=== PATIENT | female | born 1965 | race Caucasian/White ===

== ENCOUNTER → 2019-05-24 13:23 | Outpatient (CLI) | payer OTHER, SELFPAY ==
[2019-05-17 14:05] VITALS: BMI 27.5
[2019-05-24 10:54] VITALS: BMI 27.4
== END ==
PROVIDERS: PCP Family Medicine; Referring Provider Internal Medicine Critical Care Medicine; Visit Provider Internal Medicine Critical Care Medicine
DX: Z00.00 Encounter for general adult medical examination without abnormal findings (principal)

== ENCOUNTER 2019-06-01 10:08 | Day surgery (SDC) | payer OTHER, SELFPAY ==
[2019-05-17 14:05] VITALS: BMI 27.5
[2019-05-24 10:54] VITALS: BMI 27.4
--- NOTE | 2019-05-30 10:46 | PCM.HP.STD ---
History of Present Illness Date of Admission: 06/01/19 Chief Complaint: Mediastinal lymphadenopathy The patient is a 53-year-old female who initially presented to the pulmonary medicine clinic on May 23 for the evaluation of mediastinal lymphadenopathy. The patient was recently diagnosed with rectosigmoid malignancy and is currently being followed by Dr. Avila of oncology. A recent PET/CT completed on May 20 revealed increased tracer uptake in the mediastinum and bilateral thoracic perihilum with a calculated SUV of 3.3. The patient does have a notable smoking history of approximately 2 packs of cigarettes per day x10 to 15 years, having quit completely in 1998. In addition, she did report significant secondhand smoke exposure, having grown up in a smoking household as a child. Following a discussion with the patient's oncologist, he wished for the patient to undergo transbronchial needle aspiration of the aforementioned lymph node stations via EBUS. Past Medical History Medical History: Medical History (Last Reviewed 05/24/19 @ 12:52 by Anay Moulton) Rectosigmoid cancer (Acute) C19 Lymphadenopathy, generalized (Acute) R59.1 Allergies Sulfa (Sulfonamide Antibiotics) Allergy (Verified 05/28/19 13:09) Rash Home Medications: Ambulatory Orders Medication Instructions Recorded NK 05/24/19 Surgical History: Surgical History (Last Reviewed 05/24/19 @ 12:56 by Anay Moulton) History of delivery (Resolved) Z98.891 Smoking Status: Former smoker Tobacco Use: Non-smoker Review of Systems Constitutional: Denies: Chills, Fever, Weight Change HEENT: Denies: Head Aches, Sinus Congestion, Sinus Drainage Cardiovascular: Denies: Chest Pain, Palpitations Respiratory: Denies: Cough, Shortness of breath at rest, Sputum production Gastrointestinal: Denies: Abdominal Pain, Nausea, Vomiting Genitourinary: Denies: Dysuria Musculoskeletal: Denies: Joint Pain, Joint Tenderness Skin: Denies: Rash, Wounds Neurological: Denies: Numbness, Tingling, Focal weakness Psychiatric: Denies: Anxiety, Depression, Homicidal Ideations, Suicidal Ideations Hematologic/ Lymphatic: Reports: Adenopathy VTE Information - Inpt Only VTE Present on Admission: No VTE Mechan Device Prophylaxis: None VTE Pharm Prophylaxis ordered?: No Reason prophylaxis not ordered:: Treatment Not Indicated - Physical Exam Vitals/I&O's: Body Mass Index (BMI) 27.4 General: Alert, Cooperative, No apparent distress HEENT: Atraumatic, Normocephalic Oral: No Gingival or Mucosal Lesions/ Ulcerations Neck: Supple, No Nodes, Trachea Midline Lungs: Normal air movement, No rhonchi, No wheeze, No rales Cardiovascular: Regular rate, Regular Rhythm, Normal S1, Normal S2, No murmurs Abdomen: Bowel Sounds Present, Soft, Non Tender Extremities: No clubbing, No cyanosis, No edema Skin: No breakdown Musculoskeletal: No Tenderness to Palpation of Joints or Extremities, No Muscle Wasting Lymphatic: No Cervical, Supraclavicular, or Inguinal Adenopathy Neurological: Cranial nerves II-XII grossly intact, Neuro grossly intact Psych/Mental Status: Alert and oriented to time, place, person, mood and affect Assessment/Plan All Active Problems (Last Reviewed 05/24/19 @ 12:56 by Anay Moulton) Rectosigmoid cancer (Acute) Lymphadenopathy, generalized (Acute) History of delivery (Resolved) 1. Mediastinal lymphadenopathy R59.0 Plan The patient presents today having recently been diagnosed with rectosigmoid cancer. She recently completed a PET scan which revealed increased tracer uptake within the subcarinal and bilateral hilar regions. I personally spoke with the patient's oncologist, Dr. Avila, who wished for the patient to undergo transbronchial needle aspiration of the aforementioned lymph node stations via EBUS. Risks and benefits of the proposed procedure were discussed with the patient at length. Questions were answered accordingly. The patient is in agreement to proceed.
[2019-06-01] VITALS (7 sets, daily range): BP systolic 104–138; BP diastolic 66–90; PULSE 79–84; RESP 16–18; TEMP 36.6–36.8; O2SAT 90–99; BMI 27.2
--- NOTE | 2019-06-01 | FLU_PTH ---
PATIENT: MICHELINE JOHNSON LOC: EN U#:[id number] AGE/SX: 53/F ROOM: RE06/01/[address]: Dr. Anibal Moreno DO : 1965 BED: DIS: 06/01/2019 SPEC #: [id number] RECD: 06/01/19 13:24 STATUS: JUAN RE #: [id number] ALEIDA: 06/01/19 00:[address]: Anibal Moreno DEPT: CYTOLOGY RECD BY: Russell Campuzano ENTERED: 06/01/19 13:25 SP TYPE: Fluid OTHR DR: Dr. Kelvin Caldera MD Tissues: A - Lung, NOS B - Lung, NOS C - Lung, NOS D - Lung, NOS E - Lung, NOS F - Lung, NOS G - Lung, NOS H - Lung, NOS I - Lung, NOS J - Lung, NOS K - Lung, NOS Procedures: PAS Fungus (control) Special Stain Group II Special Stain Group I Surgery Specimen Level IV AFB Stain (control) Cytospin Fluid Cytology Other HEADER OPERATION: Endobronchial ultrasound PRE-OP DIAGNOSIS: Mediastinal lymphadenopathy TISSUE SUBMITTED: A-C - EBUS, TBNA, site 7, D & E - EBUS, TBNA, site 10R, F - EBUS, TBNA, site?10L, G - EBUS, TBNA, site 11L, H - EBUS, TBNA, site 7, I - EBUS, TBNA, site 10R, J - EBUS, TBNA, site 10L, K - EBUS, TBNA, site 11L DIAGNOSIS CYTOLOGY A. EBUS, TBNA, aspiration #1, site 7 (smears): Predominantly respiratory epithelial cells, neutrophils and mucus. B. EBUS, TBNA, aspiration #2, site 7 (smears): Adequate for evaluation. Non-necrotizing granulomas are noted. Numerous lymphocytes are noted. Negative for malignant cells. C. EBUS, TBNA, aspiration #3, site 7 (smears): Adequate for evaluation. Non-necrotizing granulomas are noted. Numerous lymphocytes are noted. Negative for malignant cells. D. EBUS, TBNA, aspiration #4, site 10R (smears): Adequate for evaluation. Non-necrotizing granulomas are noted. Numerous lymphocytes are noted. Negative for malignant cells. E. EBUS, TBNA, aspiration #5, site 10R (smears): Adequate for evaluation. Lymphocytes and respiratory epithelial cells noted. Negative for malignant cells. F. EBUS, TBNA, aspiration #6, site 10L (smears): Non-necrotizing granulomas are noted. Lymphocytes and respiratory epithelial cells are noted. Negative for malignant cells. G. EBUS, TBNA, aspiration #7, site 11L (smears): Adequate for evaluation. Non-necrotizing granulomas are noted. Numerous lymphocytes are noted. Negative for malignant cells. H. EBUS, TBNA, site 7, fluid (cell block): Consistent with benign lymph node tissue. Non-necrotizing granulomas. Negative for metastatic carcinoma. Fragments of cartilage. Special stains for acid fast bacilli and fungi are negative for organisms; matched controls are appropriate. I. EBUS, TBNA, site 10R, fluid (cell block): Consistent with benign lymph node tissue. Non-necrotizing granulomas. Negative for metastatic carcinoma. Special stains for acid fast bacilli and fungi are negative for organisms; matched controls are appropriate. J. EBUS, TBNA, site 10L, fluid (cell block): Consistent with benign lymph node tissue. Non-necrotizing granulomas. Negative for metastatic carcinoma. Special stains for acid fast bacilli and fungi are negative for organisms; matched controls are appropriate. K. EBUS, TBNA, site 11L, fluid (cell block): Paucicellular specimen. A few small lymphocytes are noted. Special stains for acid fast bacilli and fungi are negative for organisms; matched controls are appropriate. SJ:bernadette 06/04/19 COMMENT The specimen is evaluated at the time of procedure by Dr. Velasco. Immediate Evaluation: A. EBUS, TBNA, aspiration #1, site 7: Predominantly respiratory epithelial cells, neutrophils and mucus. Reported to Dr. Moreno at 11:50 a.m. B. EBUS, TBNA, aspiration #2, site 7: Adequate for evaluation. Granulomas are noted. Lymphocytes are noted. Negative for malignant cells. Reported to Dr. Moreno at 11:54 a.m. C. EBUS, TBNA, aspiration #3, site 7: Adequate for evaluation. Lymphocytes and respiratory epithelial cells noted. Negative for malignant cells. Reported to Dr. Moreno at 11:57 a.m. D. EBUS, TBNA, aspiration #4, site 10R: Adequate for evaluation. Granulomas are noted. Lymphocytes are noted. Negative for malignant cells. Reported to Dr. Moreno at 12:00 p.m. E. EBUS, TBNA, aspiration #5, site 10R: Adequate for evaluation. Lymphocytes and respiratory epithelial cells noted. Negative for malignant cells. Reported to Dr. Moreno at 12:05 p.m. F. EBUS, TBNA, aspiration #6, site 10L: Negative for malignant cells. Respiratory epithelial cells and lymphocytes are noted. Reported to Dr. Moreno at 12:10 p.m. G. EBUS, TBNA, aspiration #7, site 11L: Adequate for evaluation. Granulomas are noted. Lymphocytes are noted. Negative for malignant cells. Reported to Dr. Moreno at 12:15 p.m. 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 Case has been reviewed in consultation with Dr. Palumbo who concurs with the above diagnosis. IDC:AM CYTOLOGY STUDY Slides are reviewed. CYTOLOGY GROSS A - Received labeled with the patient's name and and designated EBUS, TBNA, aspiration #1, site 7. The specimen consists of two smears. The smears are submitted for immediate cytologic evaluation (wet read). B - Received labeled with the patient's name and and designated EBUS, TBNA, aspiration #2, site 7. The specimen consists of two smears. The smears are submitted for immediate cytologic evaluation (wet read). C - Received labeled with the patient's name and and designated EBUS, TBNA, aspiration #3, site 7. The specimen consists of two smears. The smears are submitted for immediate cytologic evaluation (wet read). D - Received labeled with the patient's name and and designated EBUS, TBNA, aspiration #4, site 10R. The specimen consists of two smears. The smears are submitted for immediate cytologic evaluation (wet read). E - Received labeled with the patient's name and and designated EBUS, TBNA, aspiration #5, site 10R. The specimen consists of two smears. The smears are submitted for immediate cytologic evaluation (wet read). F - Received labeled with the patient's name and and designated EBUS, TBNA, aspiration #6, site 10L. The specimen consists of two smears. The smears are submitted for immediate cytologic evaluation (wet read). G - Received labeled with the patient's name and and designated EBUS, TBNA, aspiration #7, site 11L. The specimen consists of two smears. The smears are submitted for immediate cytologic evaluation (wet read). H - Received in RPMI labeled with the patient's name and and designated EBUS, TBNA, site 7 submitted for cell block. I - Received in RPMI labeled with the patient's name and and designated EBUS, TBNA, site 10R submitted for cell block. J- Received in RPMI labeled with the patient's name and and designated EBUS, TBNA, site 10L submitted for cell block. K - Received in RPMI labeled with the patient's name and and designated EBUS, TBNA, site 11L submitted for cell block. / SJ:rg 06/01/19 TC:3 CPT: 88373 x4, 51692 x4, 03097 x3, 22430 x4, 00553 x8
--- NOTE | 2019-06-01 12:31 | OP.BRONCH_ITS ---
Patient Name: Jodee Jameson Procedure Date: 06/01/2019 11:00 AM Date of : 1965 Age: 53 Procedure: Bronchoscopy Indications: Mediastinal adenopathy Providers: Anibal Moreno MD Referring MD: Rudy Avila MD Medicines: General Anesthesia Complications: No immediate complications Procedure: Pre-Anesthesia Assessment: - A History and Physical has been performed. Patient meds and allergies have been reviewed. The risks and benefits of the procedure and the sedation options and risks were discussed with the patient. All questions were answered and informed consent was obtained. Patient identification and proposed procedure were verified prior to the procedure by the physician and the nurse. Mental Status Examination: alert and oriented. Airway Examination: normal oropharyngeal airway. Respiratory Examination: clear to auscultation. CV Examination: RRR, no murmurs, no S3 or S4. ASA Grade Assessment: II - A patient with mild systemic disease. After reviewing the risks and benefits, the patient was deemed in satisfactory condition to undergo the procedure. The anesthesia plan was to use general anesthesia. Immediately prior to administration of medications, the patient was re-assessed for adequacy to receive sedatives. The heart rate, respiratory rate, oxygen saturations, blood pressure, adequacy of pulmonary ventilation, and response to care were monitored throughout the procedure. The physical status of the patient was re-assessed after the procedure. After I obtained informed consent, the scope was passed under direct vision. Throughout the procedure, the patient's blood pressure, pulse, and oxygen saturations were monitored continuously. The ultrasound bronchoscope was introduced through the mouth, via laryngeal mask airway and advanced to the tracheobronchial tree. The procedure was accomplished without difficulty. The patient tolerated the procedure well. Findings: The laryngeal mask airway is in good position. The vocal cords appear normal. The subglottic space is normal. The trachea is of normal caliber. The rosita is sharp. The tracheobronchial tree was examined to at least the first subsegmental level. Bronchial mucosa and anatomy are normal; there are no endobronchial lesions, and no secretions. The scope was withdrawn and replaced with the EBUS bronchoscope to accomplish the ultrasound examination. Lymph Nodes: An endobronchial ultrasound endoscope was utilized to systematically examine the subcarinal mediastinum (level 7), right hilar region (level 10R), left hilar region (level 10L) and left interlobar region (level 11L) in order to assist with fine needle aspiration. Lymph node sizing was performed via endobronchial ultrasound. Sampling by transbronchial needle aspiration was also performed using an Olympus EBUS-TBNA 19 gauge needle in the subcarinal mediastinum (level 7), right hilar region (level 10R), left hilar region (level 10L) and left interlobar region (level 11L) and sent for routine cytology. - The 7 (subcarinal) node was evaluated. Three samples with the needle were obtained. - The 10R (hilar) node was evaluated. Two samples with the needle were obtained. - The 10L (hilar) node was evaluated. One sample with the needle was obtained. - The 11L (Interlobar) node was evaluated. One sample with the needle was obtained. Impression: - Mediastinal adenopathy - The airway examination was normal. - Endobronchial ultrasound was performed. - Lymph node sizing and sampling was performed. Recommendation: - Await cytology results. Procedure Code(s): --- Professional --- 02061, Bronchoscopy, rigid or flexible, including fluoroscopic guidance, when performed; with endobronchial ultrasound (EBUS) guided transtracheal and/or transbronchial sampling (eg, aspiration[s]/biopsy[ies]), 3 or more mediastinal and/or hilar lymph node stations or structures Diagnosis Code(s): --- Professional --- R59.0, Localized enlarged lymph nodes R09.89, Other specified symptoms and signs involving the circulatory and respiratory systems CPT copyright 2017 [employer]. All rights reserved. The codes documented in this report are preliminary and upon hcc coders review may be revised to meet current compliance requirements. DO Anibal Alvarado MD 06/01/2019 12:30:49 PM This report has been signed electronically. Number of Addenda: 0 Note Initiated On: 06/01/2019 11:00 AM
== END 2019-06-01 14:07 | disposition home or self-care (01) ==
LOC: EN 10:09 → AC 10:11
PROVIDERS: PCP Family Medicine; Referring Provider Internal Medicine Critical Care Medicine; Visit Provider Internal Medicine Critical Care Medicine
PROC: BB4BZZZ Ultrasonography of Pleura (ICD-10-PCS; CPT 31653; principal; 2019-06-01 11:00)
DX: R59.0 Localized enlarged lymph nodes (principal); R09.89 Other specified symptoms and signs involving the circulatory and respiratory systems; C19 Malignant neoplasm of rectosigmoid junction; Z78.0 Asymptomatic menopausal state; Z87.891 Personal history of nicotine dependence
CPT/HCPCS: 31653; 88108; 88161; 88305; 88312; 88313; J7120; J2405

== ENCOUNTER → 2019-06-02 07:54 | Outpatient (CLI) | payer OTHER, SELFPAY ==
[2019-05-17 14:05] VITALS: BMI 27.5
[2019-05-24 10:54] VITALS: BMI 27.4
[2019-06-01 10:57] VITALS: BMI 27.2
--- NOTE | 2019-06-02 07:54 | MRI_ITS ---
STUDY: MR PELVIS WITH T WITHOUT CONTRAST REASON FOR EXAM: Female, 53 years old. rectal ca, lymph nodes with lesions TECHNIQUE: Standardized fat and water weighted pulse sequences were obtained in all 3 orthogonal planes, pre-and post contrast administration. IV 15CC DOTAREM was administered for the contrast portion of the examination. COMPARISON: PET scan 05/21/2019 FINDINGS: Normal urinary bladder. Normal visualized small intestine. Rectal wall mass identified with the lower margin 5.2 cm above the anal verge (mid rectal). The cephalad margin of the mass is seen at S2 level, approximately 1.2 cm above the peritoneal reflection. The mass extends from approximately the 10:00 position along the anterior left wall to the 7:00 position. The tumor is seen extending beyond the muscularis propria into the pericolorectal tissues (3:00 position) measuring approximately 6.6 mm (image 9 series 9) with reticulation extending leftward and slightly anterior (image 43 series 14). There are 3 round oval-shaped lymph nodes in the perirectal fat on image 12 of series 9 with short axis measuring 4.6 mm, 4.2 mm and 4.5 mm. There is also a round lymph node measuring 3.9 mm on image 10 of series 9. An asymmetrically enlarged right pelvic sidewall lymph node measures 1.0 x 2.1 cm on image 6 of series 7 (FDG positive on prior PET scan) with a smaller asymmetric lymph node slightly more anterior on the same image measuring 0.4 x 0.8 cm (right external iliac chain). Just anterior to the sacrum on image 3 of series 16, there is a round lymph node measuring 7.7 x 7.9 cm (superior rectal chain). The anal sphincter complex is NOT involved. There is no pelvic fluid. There is no pelvic mass lesion or lymphadenopathy. The uterus is normal in signal intensity and enhancement without evidence of mass. Normal visualized pelvic arteries. No bone marrow edema. Normal abdominal wall. MRI/Pelvis W/WO Contrast IMPRESSION: 1. Mid rectal neoplasm correlating to FDG-positive lesion with extension beyond the muscularis propria mesorectal on recent PET scan (T3b). Approximately 7 suspicious regional lymph nodes (in the perirectal fat, right external iliac chain, superior rectal chain). Anal sphincter complex is NOT involved. 2. MR staging: T3c, N2, Mx Electronically Signed: Jesus Izquierdo MD ([place]) at 7:59 EDT , Service support ,
== END ==
PROVIDERS: PCP Family Medicine; Referring Provider Internal Medicine Medical Oncology; Visit Provider Internal Medicine Medical Oncology
DX: C19 Malignant neoplasm of rectosigmoid junction (principal)
CPT/HCPCS: 72197; A9575

== ENCOUNTER 2019-06-11 05:43 | Day surgery (SDC) | payer OTHER, SELFPAY ==
[2019-05-17 14:05] VITALS: BMI 27.5
[2019-06-08 08:09] VITALS: BMI 27.2
--- NOTE | 2019-06-08 08:50 | HP_ITS ---
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: No Is patient in pain?: No Allergies Sulfa (Sulfonamide Antibiotics) Allergy (Intermediate, Verified 06/08/19 08:09) Rash Medications Lidocaine/Prilocaine [Lidocaine-Prilocaine Cream] 1 applicatio TP DAILY PRN PRN 30 Days #1 tube 06/07/19 [Rx Confirmed 06/08/19] Ondansetron [Ondansetron Odt] 8 mg PO Q8H PRN PRN 10 Days #30 tab.rapdis 06/07/19 [Rx Confirmed 06/08/19] Prochlorperazine Maleate 10 mg PO Q6H PRN PRN 10 Days #30 tab 06/07/19 [Rx Confirmed 06/08/19] Is last menstrual period known: No Post menopausal: Yes Patient : No PFSH Medical History Rectosigmoid cancer (Acute ~05/2019) Lymphadenopathy, generalized (Acute) Hemorrhoids (Acute) Surgical History History of delivery (Resolved) Family History Mother COPD (chronic obstructive pulmonary disease) Father Skin cancer Emphysema lung Lung cancer Sister Heart disease Sepsis Other History of shingles Social History (Updated 06/08/19 @ 08:[address] Karson Drew MD) Smoking Status: Former smoker Tobacco: How many years used: 10 how long ago did patient quit smokin HPI HPI HPI: MICHELINE JOHNSON, is a 53 F who presents to the office today for HPI HPI Surgical H&P: Yes HPI: 53-year-old woman was found to have high CEA level-66. She had colonoscopy done on 04/16/[address] Olsen at [facility] in [facility], showed large polyp about 12 cm from the anal verge. 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 She had a CT scan done on 04/30/2019, chest showed 6 mm left lower lobe nodule, abdomen showed splenomegaly with asymmetrical rectal wall thickening. She was referred for further evaluation. PET/CT scan 05/21/2019 showed hypermetabolic activity in the rectosigmoid junction, right roxana-pelvic soft tissue lymph node, bilateral axillary mediastinum bilateral perihilar. Patient underwent bronchoscopy and EBUS on 06/01/2019 for mediastinal adenopathy. Lymph node sampling was obtained from level 7, 10 R, 10 L, and 11 L. Pathology was consistent with granuloma and no evidence of malignancy. Patient underwent MRI pelvis on 06/02/2019 which demonstrated a rectal mass identified with the lower margin being about 5.2 cm above the anal verge and the most cephalad portion being at approximately the S2 level. The mass extends from approximately the 10 o'clock position along the anterior left wall to the 7 o'clock position. The tumor is seen extending beyond the muscularis propria into the pleura low rectal tissues at the 3 o'clock position measuring approximately 6.6 mm. There are noted to be approximately 7 suspicious regional lymph nodes noted in the perirectal fat, right external iliac chain, and superior rectal chain. The largest lymph node appears to involve the right external iliac near the pelvic sidewall and measures 2.1 cm. ROS General General: Yes colon cancer; no weight change, appetite, fatigue, breast cancer or weakness HEENT HEENT: No difficulty swallowing, eye injury, eye surgery, swollen glands or hoarseness Endo Endocrine: No thyroid disease, diabetes mellitus, thyroid cancer, Hair loss, heat intolerance or cold intolerance Cardio Cardiovascular: No murmur, pacemaker, heart disease, atrial fibrillation, high blood pressure, heart attack, heart stent, palpitations, shortness of breat with exertion or chest pain Psych Psychiatric: No depression, anxiety or hearing voices Resp Respiratory: No shortness of breath, No sleep apnea, No cough, No COPD, No asthma, No emphysema, No wheezing Gastro Gastrointestinal: No abdominal pain, No nausea or vomiting, No diarrhea, No constipation, Yes blood in stool, No acid reflux, Yes hemorrhoids, No ulcers, No gallbladder problem, No black,tarry stools Erich Hematologic: No blood thinners, No blood disorders, No bleeding, No anemia, No blood clots Neuro Neurologic: No weakness Exam Const General: no acute distress, well developed, well hydrated Orientation: oriented to person, oriented to place, oriented to time [facility] Head: normocephalic, atraumatic Ears: external ears normal Mouth: moist mucous membranes Eyes Sclera: sclerae normal Pupils: normal by confrontation Neck Neck: no lymphadenopathy noted Neck mass: No Thyroid: thyroid normal, symmetrical Chest Chest palpation & inspection: normal inspection of the chest Resp Effort & Inspection: normal respiratory effort Auscultation: clear to auscultation bilaterally Percussion: percussion normal Cardio Rate: regular rate Rhythm: regular rhythm Heart Sounds: no murmurs GI Palpation: soft, no hepatosplenomegaly, no masses, nontender Rectal Exam: other Other: Rectal exam deferred. Extrem General: normal to inspection, no clubbing, cyanosis or edema Assessment & Plan Problems 1. Vascular catheter fitting or adjustment Z45.2 Plan I plan to perform a Right internal jugular port a cath placement. The planned surgical procedure was discussed extensively with the patient. The risks, benefits, anticipated outcomes and possible complication were mentioned. My staff has also explained the procedure in understandable terms and the patient was given the option to take printed material concerning the planned procedure. The patient had the opportunity to ask questions concerning the planned procedure. The patient freely consents to the planned procedure. Coding Level of Care Code Off vis,new,level 3 Diagnoses Vascular catheter fitting or adjustment Z45.2 06/08/19 0850 <Electronically signed by Karson barker MD> Date _ Karson Drew MD I have re-examined the patient. There are no clinical changes since date of exam.
[2019-06-11] VITALS (9 sets, daily range): BP systolic 97–132; BP diastolic 58–77; PULSE 82–95; RESP 15–16; TEMP 36.6–36.8; O2SAT 92–96; BMI 27.2
[2019-06-11] MEDS: Lactated Ringers 1,000 ML 100 ML IV (06:19)
[2019-06-11] MEDS: Cefazolin 2 GM in 0.9% Normal Saline 100 ML IV (07:29)
[2019-06-11] MEDS: Bupivacaine Mpf 0.5% 30 ML VIAL (08:04)
--- NOTE | 2019-06-11 08:15 | OP.PCM_ITS ---
Problem List (1) Vascular catheter fitting or adjustment Status: Acute Report of Operation Date of Procedure: 06/11/19 Pre-Operative Diagnosis: Vascular fitting or adjustment Post-Operative Diagnosis: Same Surgery/Procedure Performed:: Placement of a right IJ PowerPort Type of Anesthesia:: Local MAC Anesthesiologist: Hugo March Estimated Blood Loss (mL): < 5 cc Description of Procedure: Patient was brought into the operating room. Placed in the supine position. Ultrasound of the right neck showed where the internal jugular vein was located the neck and chest were then marked appropriately. The neck and chest were then sterilely prepped and draped in usual fashion. Local was injected into the neck . Seldinger's technique was used to gain access to the vein guidewire was placed through the needle the needle was removed. Fluoroscopy was used to confirm placement of the wire. I injected local on the chest and incision was made. Electrocautery was used to create a pocket for the port. A skin eli was made in the neck dilator and sheath was then placed over the guidewire. The dilator and guidewire were then removed. Single lumen catheter was placed into the sheath and the sheath was removed. Fluoroscopy was used to confirm proper length. I tunneled from the pocket created over the collarbone into the neck and brought the catheter down I cut to length placed the locking hub on the catheter the port under the catheter and secured the 2 with a locking hub. It flushed and irrigated well. I sutured the port into the pocket with 2 sutures of 2-0 Prolene. Skin incisions were closed with deep dermal stitches of 3-0 Vicryl. Dermabond was applied. The port was accessed. It was flushed with 5 cc of Hepflush. Sterile dressings were applied and the patient tolerated the procedure well. - Admit VTE Documentation VTE Present on Admission: No VTE Mechan Device Prophylaxis: SCD's VTE Pharm Prophylaxis ordered?: No Reason prophylaxis not ordered:: Treatment Not Indicated
--- NOTE | 2019-06-11 08:19 | DCINST_ITS ---
Discharge Diet: No Restrictions - Pain medication may cause nausea. You should typically eat light foods as you take your pain medication. Discharge Activity: May Shower - with the bandage in place 1-2 days after surgery. DO NOT SHOWER WHEN YOUR PORT IS ACCESSED. Additional Activity Instructions:: May not drive, work with heavy equipment, or sign legal documents for [address] if you are no longer taking narcotic pain medications. You may drive when you are no longer taking pain medications. Additional Dressing/Incision Instructions:: Leave the bandage on for 2-3 days. When you remove the bandage, leave the steri-strips intact until they fall off. Allergies/Adverse Reactions: Allergies Sulfa (Sulfonamide Antibiotics) Allergy (Intermediate, Verified 06/11/19 06:12) Rash Medications to take at Discharge Lidocaine/Prilocaine [Lidocaine-Prilocaine Cream] 1 applicatio TP DAILY PRN PRN 30 Days #1 tube 06/07/19 Ondansetron [Ondansetron Odt] 8 mg PO Q8H PRN PRN 10 Days #30 tab.rapdis 06/07/19 Prochlorperazine Maleate 10 mg PO Q6H PRN PRN 10 Days #30 tab 06/07/19 Oxycodone HCl/Acetaminophen [Percocet 5/325] 1 - 2 tablet PO Q4H PRN PRN 6 Days #30 tablet 06/11/19 The following prescriptions were given: Oxycodone HCl/Acetaminophen [Percocet 5/325] 1 - 2 tablet PO Q4H PRN PRN 6 Days #30 tablet PRN Reason: Pain Transmission Status: Received by [facility]/pharmacy #[id number] Primary Care Physician: Kelvin Caldera MD [Primary Care Provider] - Test Results: Test results from this visit will be discussed in further detail at your follow- up appointment, if applicable. Please Follow Up With: Rudy Avila MD - [phone] When: Please plan to follow up in 7 days in the office.
--- NOTE | 2019-06-11 08:32 | RAD_ITS ---
STUDY: X-RAY CHEST REASON FOR EXAM: Female, 53 years old. POST PORT PLACEMENT TECHNIQUE: Single AP portable view of the chest. COMPARISON: None. FINDINGS: A right-sided portacatheter is seen with the tip at the junction of the superior vena cava and right atrium. Patchy infiltrates at the lung bases more prominent on the right side. There is no demonstrated pleural abnormality. Normal size heart. Normal mediastinum and miquel. Normal visualized pulmonary arteries. Normal visualized aortic arch and descending thoracic aorta. Normal visualized thoracic spine. Normal visualized ribs, clavicles, and shoulders. There is no demonstrated abnormality of the visualized soft tissue structures of the upper abdomen. RAD/Chest 1 View (Portable) IMPRESSION: The tip of the right portacatheter is at the junction of the superior vena cava and right atrium. Bilateral patchy atelectasis and/or infiltrates worse on the right lung base. Electronically Signed: William Jordan, at 9:11 EDT , Service support ,
== END 2019-06-11 09:40 | disposition home or self-care (01) ==
LOC: SDC 05:44 → AC 05:48
PROVIDERS: PCP Family Medicine; Referring Provider Surgery; Visit Provider Surgery
PROC: (CPT 36561; principal; 2019-06-11 07:15)
DX: Z45.2 Encounter for adjustment and management of vascular access device (principal); C19 Malignant neoplasm of rectosigmoid junction; Z78.0 Asymptomatic menopausal state; Z87.891 Personal history of nicotine dependence
CPT/HCPCS: 36561; 71045; 77001; J7120; C1788

== ENCOUNTER → 2019-08-09 09:33 | Outpatient (CLI) | payer OTHER, SELFPAY ==
[2019-05-17 14:05] VITALS: BMI 27.5
[2019-07-31 08:55] VITALS: BMI 27.7
--- NOTE | 2019-08-09 09:38 | MRI_ITS ---
STUDY: MR PELVIS WITH T WITHOUT CONTRAST REASON FOR EXAM: Female, 53 years old. restaging rectal ca TECHNIQUE: Standardized fat and water weighted pulse sequences were obtained in all 3 orthogonal planes, pre-and post contrast administration. IV 15cc dotarem was administered for the contrast portion of the examination. COMPARISON: MRI 06/02/2019, PET scan 05/21/2019 FINDINGS: Normal urinary bladder. Normal visualized small intestine. Rectal wall mass (increased signal heterogeneity) identified with the lower margin 5.8 cm above the anal verge (mid rectal). The cephalad margin of the mass is seen at S2 level. The mass extends from approximately the 10:00 position along the anterior left wall to the 6:00 position (image 20 series 5). The tumor is seen extending beyond the muscularis propria into the pericolorectal tissues (3:00 position) measuring approximately 4 mm depth (previously measured 6.6 mm) (image 9 series 10). There are 3 round to oval (homogenous, smooth borders) lymph nodes in the perirectal fat on images 11-14 of series 10 with short axis measuring 2.6 mm right posterolateral (previous measurement 4.6 mm), 2 mm left anterolateral (previously measured 4.2 mm) and 3.0 mm left posterolateral (previously measured 4.5 mm). An asymmetrically enlarged right pelvic sidewall lymph node measures 0.7 x 2.0 cm (previously measured 1.0 x 2.1 cm) on image 6 of series 10 (FDG positive on prior PET scan) with a smaller asymmetric lymph node slightly more anterior on the image 5 measuring 0.4 x 0.8 cm (stable). Just anterior to the sacrum on image 22 of series 13, there is a round lymph node measuring 6.0 x 6.0 mm (previously measured 7.7 x 7.9 mm. The rectal mass has overall decreased in size with maximum wall thickness measuring up to 7.7 mm (previously 11.4 mm similar level) with length of mass currently measuring 3.0 cm (previously measured 5.4 cm). There is no pelvic fluid. There is no pelvic mass lesion or lymphadenopathy. The uterus is normal in signal intensity and enhancement without evidence of mass. Normal visualized pelvic arteries. No bone marrow edema although scattered marrow replacement/conversion is overall similar. Normal abdominal wall. MRI/Pelvis W/WO Contrast IMPRESSION: 1. Mid rectal neoplasm overall DECREASED size (thickness and length) with persistent minimal (4 mm) extension beyond the muscularis propria into mesorectal fat (T3a). Slightly smaller above described lymph nodes. Only two (right pelvic sidewall, superior rectal chain) lymph nodes measure above 5 mm on the current exam. 2. MR restaging: T3a, N1, Mx. Grade 3 rectal tumor regression/response. Electronically Signed: Jesus Izquierdo MD ([place]) at 14:45 EDT , Service support ,
== END ==
PROVIDERS: PCP Family Medicine; Referring Provider Internal Medicine Medical Oncology; Visit Provider Internal Medicine Medical Oncology
DX: C19 Malignant neoplasm of rectosigmoid junction (principal)
CPT/HCPCS: 72197; A9575

== ENCOUNTER 2019-08-19 18:29 | Emergency (ER) | payer OTHER, SELFPAY ==
[2019-05-17 14:05] VITALS: BMI 27.5
[2019-08-14 08:30] VITALS: BMI 27.2
[2019-08-19 18:30] VITALS: BP 144/84; PULSE 104; RESP 16; TEMP 37.4; O2SAT 97; BMI 27.4
--- NOTE | 2019-08-19 18:44 | ED.VIS.GEN ---
History of Present Illness Chief Complaint: Fever Informant: Patient Onset: Days Narrative: Patient is currently undergoing chemotherapy for stage III rectal cancer. She states that she had her chemo pump on last week, August 13 through August 15. She states she was gets a low-grade fever when she gets her treatments. She typically just takes Tylenol. She mentioned this to her oncologist this past week who advised her not to take Tylenol and mask any symptoms that she may be having. She has had fever the past several days. T-max today was 101. Patient called her oncology team who sent her in for evaluation. Patient denies any other symptoms at present time. 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 Denies: Chills Eyes: Denies: Visual changes - bilaterally ENT: Denies: Bilateral ear pain Cardiovascular: Denies: Chest pain Respiratory: Denies: Dyspnea, Cough Gastrointestinal: Denies: Abdominal pain, Nausea, Vomiting, Diarrhea Genitourinary: Denies: Dysuria Musculoskeletal: Denies: Swelling, Extremity Pain Skin: Denies: Rash Hematologic: Denies: Easy bruising, Easy bleeding Allergy: Denies: Uticaria Physical Exam Vital Signs/Narrative: Vital Signs Temp Pulse Resp BP Pulse Ox 08/19/19 18:30 99.4 F H 104 H 16 144/84 H 97 Inital Vital Signs reviewed: Yes General: Well nourished, Well developed Head: Normocephalic ENT: Moist mucous membranes Neck: Supple Cardiovascular: Regular rate, Regular rhythm Respiratory: No distress, CTA bilaterally, - - Port in place right upper chest with no overlying skin changes. Abdomen: Soft, Nontender Back: Nontender Extremities: Nontender Skin: Normal color Neurological: Alert, Oriented x3, Normal Strength, Normal Sensation Psychological: Normal affect Diagnostic/Tx/Re-eval Impressions Chest X-Ray 05/31/20 19:05 IMPRESSION: No change bibasilar interstitial infiltrates, scarring or subsegmental atelectasis Electronically Signed: Wilfredo Mackey MD at 20:10 EDT , Service support , 08/19/19 19:05 Chest 1 View (Portable) [RAD] Stat Laboratory Results 08/19/19 08/19/19 08/19/19 19:14 19:14 19:30 WBC 2.5 L RBC 3.58 L Hgb 10.1 L Hct 31.8 L MCV 88.8 MCH 28.2 MCHC 31.8 L RDW Std Deviation 61.7 H RDW Coeff of [place] 19.4 H Plt Count 172 MPV 11.0 Immature Gran % (Auto) 1.200 H Neut % (Auto) 77.3 H Lymph % (Auto) 8.5 L [place] % (Auto) 6.5 Eos % (Auto) 5.7 H Baso % (Auto) 0.8 Absolute Neuts (auto) 1.9 L Absolute Lymphs (auto) 0.21 L Nucleated RBC % 0.8 Differential Comment SCANNED Diff Path Review May foll Sodium 133 L Potassium 3.9 Chloride 99 Carbon Dioxide 27.0 Anion Gap 7 BUN 17 Creatinine 0.56 Estim Creat Clear Calc 107.51 Est GFR (MDRD) Af Amer 145 Est GFR (MDRD) Non-Af 120 BUN/Creatinine Ratio 30.5 H Glucose 89 Calcium 8.8 Total Bilirubin 0.60 Direct Bilirubin 0.20 AST 30 ALT 39 Alkaline Phosphatase 81 Total Protein 7.0 Albumin 3.3 Globulin 3.7 Urine Color Yellow Urine Clarity Clear Urine pH 8.0 Ur Specific [place] 1.010 Urine Protein Negative Urine Glucose (UA) Normal Urine Ketones Negative Urine Occult Blood Negative Urine Nitrite Negative Urine Bilirubin Negative Urine Urobilinogen 4 H Ur Leukocyte Esterase Negative Urine RBC 0 SEEN Urine WBC 0 SEEN Ur Squamous Epith Cells 0 SEEN Urine Bacteria 0 SEEN Urine Mucus 0 SEEN - Medical Decision Making Patient continues to have no symptoms while in the emergency room. Temperature is rechecked and was 100.4. I did speak with Cami Francis, nurse practitioner for oncology. We will go ahead and send the patient home at this time. She will see the patient in follow-up tomorrow morning. Blood cultures are currently pending. Covid test is pending and if positive I will call the patient tonight with those results. ED Disposition - Plan for ED Patient: Disposition: Home or Assisted Living Diagnosis: Fever Instructions: ED FUO Adult Referrals: Shanna Barker NP-C [Nurse Practitioner] - 1 Day
--- NOTE | 2019-08-19 19:05 | RAD_ITS ---
STUDY: X-RAY CHEST REASON FOR EXAM: Female, 53 years old. FEVER, RECENT CHEMO- TUESDAY, RECTAL CA TECHNIQUE: Single frontal view of the chest. COMPARISON: June 11, 2019 FINDINGS: Right IJ catheter appears angulated or kinked near the skin but unchanged in position terminating in the right atrium. Bibasilar interstitial infiltrates unchanged. There is no demonstrated pleural abnormality. Normal size heart. Normal mediastinum and miquel. Normal visualized pulmonary arteries. Normal visualized aortic arch and descending thoracic aorta. Normal visualized thoracic spine. Normal visualized ribs, clavicles, and shoulders. There is no demonstrated abnormality of the visualized soft tissue structures of the upper abdomen. RAD/Chest 1 View (Portable) IMPRESSION: No change bibasilar interstitial infiltrates, scarring or subsegmental atelectasis Electronically Signed: Wilfredo Mackey MD at 20:10 EDT , Service support ,
[2019-08-19 19:27] LABS: Absolute Lymphocyte Count 0.21 X10^3/uL (0.83-4.51); Absolute Neutrophil Count 1.9 X10^3/uL (2.0-7.7); Basophil# 0.02 X10^3/uL; Basophil% 0.8 % (0-1); Eosinophil# 0.14 X10^3/uL; Eosinophils% 5.7 % (0-5); Hematocrit 31.8 % (37-47); Hemoglobin 10.1 g/dL (12.0-15.0); Lymphocyte # 0.21 X10^3/ul (4.0); Lymphocyte % 8.5 % (19-41); Mean Corp Hgb Conc 31.8 g/dL (32-36); Mean Corpuscular Hgb 28.2 pg (27.0-32.0); Mean Corpuscular Volume 88.8 fL (81-99); Monocyte# 0.16 X10^3/uL; Monocyte% 6.5 % (0-10); NRBC Flagged by Analyzer 0.8 % (0-5); Neutrophil % 77.3 % (47-70); POSITIVE DIFFERENTIAL YES; Platelet Count 172 K/mm3 (150-450); RBC Distribution Width CV 19.4 % (11.6-14.6); RBC Distribution Width SD 61.7 fl (35.1-43.9); Red Blood Count 3.58 M/mm3 (4.2-5.4); White Blood Count 2.5 K/mm3 (4.4-11.0)
[2019-08-19 19:33] LABS: Differential Indicated SCAN CRITERIA MET
[2019-08-19 19:38] LABS: AST(SGOT) 30 U/L (15-37); Alanine Aminotransfer ALT/SGPT 39 U/L (13-56); Albumin, Serum 3.3 g/dL (3.2-5.0); Alkaline Phosphatase 81 U/L (45-117); Anion Gap 7 (5-15); BUN 17 mg/dL (7-18); BUN/Creat Ratio 30.5 RATIO (10-20); Calcium,Total 8.8 mg/dL (8.5-10.1); Chloride 99 mmol/L (98-107); Creatinine, Serum 0.56 mg/dL (0.55-1.02); EST Glomerular Filtration Rate 120 mL/min (>60); Est Glom Filt Rate - Afr Amer 145 mL/min (>60); Estimated Creatinine Clearance 107.51 ml/min; Globulin 3.7 g/dL (2.2-4.2); Glucose 89 mg/dL (74-106); Potassium 3.9 mmol/L (3.5-5.1); Sodium Level 133 mmol/L (136-145)
[2019-08-19 19:43] LABS: Bacteria 0 SEEN /hpf (None Seen); Mucous, Urine 0 SEEN /hpf (<or=2+); Red Blood Cells-Urine 0 SEEN /hpf (0-5); Squamous Epithelial Cells - UA 0 SEEN /hpf (5-10); White Blood Cells 0 SEEN /hpf (0-5)
[2019-08-19 19:46] LABS: Color, Urine Yellow (Yellow); Glucose, Dipstick Normal (Normal); Ketone-Dipstick Negative (Negative); Leukocyte Esterase-Dipstick Negative /ul (Negative); Nitrite-Dipstick Negative (Negative); Occult Blood-Urine Negative /ul (Negative); Protein-Dipstick Negative (Negative); Urine Bilirubin Dipstick Negative (Negative); Urine Clarity Clear (Clear); Urine Urobilinogen 4 mg/dl (Normal)
[2019-08-19 20:02] LABS: Differential Comment SCANNED
[2019-08-19 21:36] VITALS: BP 126/72; PULSE 106; RESP 16
[2019-08-20 12:00] LABS: Pathologist Review Reviewed
== END 2019-08-19 21:42 | disposition home or self-care (01) ==
PROVIDERS: Emergency Provider Emergency Medicine; PCP Family Medicine
DX: R50.9 Fever, unspecified (principal); D86.1 Sarcoidosis of lymph nodes; C19 Malignant neoplasm of rectosigmoid junction; Z79.899 Other long term (current) drug therapy; Z87.891 Personal history of nicotine dependence
CPT/HCPCS: 36415; 36591; 71045; 80048; 80076; 81001; 85025; 87040; 87635; 99284; G2023; A4216; U0004

== ENCOUNTER → 2019-10-09 13:41 | Outpatient (CLI) | payer OTHER, SELFPAY ==
[2019-05-17 14:05] VITALS: BMI 27.5
[2019-10-02 08:17] VITALS: BMI 28.0
--- NOTE | 2019-10-09 13:42 | CT_ITS ---
STUDY: CT ABDOMEN AND PELVIS WITH CONTRAST REASON FOR EXAM: Female, 54 years old. RECTAL [id number] TREATMENTS, SARCOIDOSIS RADIATION DOSAGE (If Supplied By Facility): CTDIvol = ( 15.57 ) mGy, DLP = ( 1073.65 ) mGycm TECHNIQUE: Transaxial images were obtained from the dome of the diaphragm to the symphysis pubis without oral contrast. IV 100mL Isovue-300 was administered. Sagittal and coronal images were reconstructed. Individualized dose optimization techniques were used for this CT. COMPARISON: MRI from 08/09/2019 FINDINGS: The visualized lung bases are unremarkable. The visualized portions of the heart are within normal limits. There is mild fatty infiltration of the liver. No discrete lesion. There is gallbladder wall thickening and enhancement with a small amount of pericholecystic fluid. However, no intra or extrahepatic biliary dilatation is noted. Normal spleen. Normal pancreas. Normal bilateral adrenal glands. Normal right kidney. Normal left kidney. Normal visualized stomach. Normal small intestine. Normal colon. No suspicious perirectal mass or induration. No suspicious pelvic adenopathy noted. The appendix is visualized and appears normal. Appendix best seen on coronal recon images 56-65 Normal abdominal aorta. Normal inferior vena cava. Normal retroperitoneum. Normal urinary bladder. Normal visualized uterus. Normal abdominal wall. Normal osseous structures. CT/Abdomen/Pelvis WITH Contrast IMPRESSION: No suspicious rectal mass is identified. No perirectal inflammation or pelvic adenopathy noted. Gallbladder wall thickening with a minimal amount of pericholecystic fluid. No gallstones or biliary dilatation noted. Findings are equivocal for acute gallbladder disease, consider further evaluation with HIDA scan No free intraperitoneal fluid, air, or suspicious adenopathy Normal appendix visualized Electronically Signed: Lisandro Parks MD at 14:31 EDT , Service support ,
== END ==
PROVIDERS: PCP Family Medicine; Referring Provider Nurse Practitioner Family; Visit Provider Nurse Practitioner Family
DX: C19 Malignant neoplasm of rectosigmoid junction (principal)
CPT/HCPCS: 74177; Q9967

== ENCOUNTER 2019-12-11 10:25 | Observation (INO) | payer OTHER, SELFPAY ==
[2019-05-17 14:05] VITALS: BMI 27.5
[2019-12-10 14:00] VITALS: BMI 27.5
[2019-12-11] VITALS (10 sets, daily range): BP systolic 123–137; BP diastolic 66–87; PULSE 81–104; RESP 16–18; TEMP 36.4–36.9; O2SAT 93–98; BMI 27.4; BMI 27.8
--- NOTE | 2019-12-11 10:54 | EKG12_ITS ---
Test Reason : SOB Blood Pressure : / mmHG Vent. Rate : 092 BPM Atrial Rate : 092 BPM P-R Int : 156 ms QRS Dur : 070 ms QT Int : 354 ms P-R-T Axes : 055 006 044 degrees QTc Int : 437 ms Normal sinus rhythm Normal ECG Confirmed by WINTER NAVA, NOEMI ([id number]), purchase request editor LANCE LAY ([id number]) on 12/14/2019 12:59:32 PM Referred By: ELISSA Confirmed By:NOEMI MAX MD
--- NOTE | 2019-12-11 10:55 | CT_ITS ---
STUDY: CTA CHEST REASON FOR EXAM: Female, 54 years old. DYSPNEA, FEVER, COUGH, SOB. H/O RECTAL CA. History of sarcoidosis. RADIATION DOSAGE (If Supplied By Facility): CTDIvol = ( 12.79 ) mGy, DLP = ( 449.61 ) mGycm TECHNIQUE: The examination was performed with the intravenous administration of IV 100mL Isovue-370. Post-processing of the angiographic images was performed, with multiplanar reformation and 3D reconstruction. Individualized dose optimization techniques were used for this CT. COMPARISON: None. FINDINGS: A right-sided portacatheter is seen with the tip in the superior vena cava. Normal enhancement of the main pulmonary artery and right and left pulmonary arteries. Normal enhancement of the bilateral peripheral pulmonary arteries. There is no demonstrated pulmonary embolism. Normal thoracic aorta and visualized great vessels. There is no demonstrated aortic dissection. Normal heart and pericardium. Normal mediastinum. Normal hilar regions. Normal visualized trachea and bronchi. The lungs are well expanded. Emphysematous changes more prominent in the upper lobes. Patchy infiltrates in the right middle lobe as well as in both lower lobes and lingular segment of the left upper lobe. Diffuse groundglass appearance. The patient does have a history of a sarcoidosis and this may represent changes secondary to the sarcoidosis. Normal pleura. Normal chest wall structures. There are degenerative changes of thoracic spine. Gallstones. Splenomegaly. CT/CTA Chest W/WO Contrast IMPRESSION: No evidence of pulmonary embolism. Patchy infiltrates in both lungs as described with evidence of groundglass appearance throughout both lungs. The patient does have a history of sarcoidosis. Gallstones. Splenomegaly. Electronically Signed: William Jordan, at 13:07 EDT , Service support ,
--- NOTE | 2019-12-11 10:56 | NURSING ---
NO OLD EKGS
--- NOTE | 2019-12-11 10:57 | ED.VISSUMM ---
- ER Visit Summary Date of Service: 12/11/19 Chief Complaint: Fever shortness of breath History of Present Illness: The patient is a 54 F who presents with fever and shortness of breath that began yesterday. Patient states her temperature at home was up to 103.7. Patient states it improved with Tylenol. Patient states her breathing is worse with walking across the room. Patient checked her pulse ox at home after walking across the room and it was in the 60s. Patient denies any chest pain. Patient states she did feel like her heart was racing when she was short of breath. Patient admits to a cough but denies any sputum production. Physical Examination: Vital signs are stable. Patient is afebrile. Patient is in no acute distress. Oral mucosa is pink and moist. Neck is supple. Trachea is midline. There is no JVD. Heart was regular rate and rhythm. Lungs are clear and equal bilaterally. Abdomen is soft. Bowel sounds are normal. There is no tenderness. Cranial nerves II through XII are intact. There are no focal motor or sensory deficits noted. Extremities are intact. There is no calf tenderness or edema. Test Results: CBC showed white blood cell count of 4.1. Hemoglobin was 8.0. This was improved from previous result of 7.1. Comprehensive metabolic profile was essentially within normal limits. Troponin was normal. CTA of the chest was obtained. There is no evidence of pulmonary embolism. There is bilateral patchy infiltrates noted. These were interpreted by the radiologist and reviewed by myself. Lactate was normal. Urinalysis showed leukocyte esterase of 500 with 5-10 white blood cells. Emergency Department Course and Treatment: Patient was given IV fluids. Patient was given a dose of Zosyn here in the emergency department. Patient was feeling better on reevaluation. Case was discussed with the hospitalist. Patient will be admitted. Patient understood and was agreeable with the plan. All questions were answered. Disposition: Admit to hospital Impression: 1. Fever 2. Pneumonia This note was generated with [employer]ation software. It may contain incorrect words, spelling, and punctuation that were not noted in review of the chart prior to signing ED Disposition - Plan for ED Patient: Referrals: Kelvin Caldera MD [Primary Care Provider] -
[2019-12-11] MEDS: 0.9% Normal Saline 1,000 ML 1000 ML IV (11:41)
[2019-12-11 11:55] LABS: Absolute Lymphocyte Count 0.22 X10^3/uL (0.83-4.51); Absolute Neutrophil Count 3.3 X10^3/uL (2.0-7.7); Basophil# 0.01 X10^3/uL; Basophil% 0.2 % (0-1); Eosinophil# 0.07 X10^3/uL; Eosinophils% 1.7 % (0-5); Hematocrit 25.2 % (37-47); Lymphocyte # 0.22 X10^3/ul (4.0); Lymphocyte % 5.4 % (19-41); Mean Corp Hgb Conc 31.7 g/dL (32-36); Mean Corpuscular Hgb 31.5 pg (27.0-32.0); Mean Corpuscular Volume 99.2 fL (81-99); Mean Platelet Vol. 10.7 fl (6.2-12.0); Monocyte# 0.37 X10^3/uL; NRBC Flagged by Analyzer 0 % (0-5); Neutrophil # 3.34 X10^3/uL (2.7-7.7); Neutrophil % 81.7 % (47-70); POSITIVE DIFFERENTIAL YES; POSITIVE MORPHOLOGY YES; Platelet Count 138 K/mm3 (150-450); RBC Distribution Width CV 24.9 % (11.6-14.6); RBC Distribution Width SD 85.7 fl (35.1-43.9); Red Blood Count 2.54 M/mm3 (4.2-5.4); White Blood Count 4.1 K/mm3 (4.4-11.0)
[2019-12-11 12:00] LABS: Prothrombin Time (Protime)PT. 12.8 SECONDS (11.7-14.9)
[2019-12-11 12:01] LABS: Differential Indicated SCAN CRITERIA MET; Partial Thromboplast Time 32.4 Seconds (24.1-36.2)
[2019-12-11 12:11] LABS: ALB/GLOB Ratio 0.7 RATIO (0.9-2.4); AST(SGOT) 36 U/L (15-37); Alanine Aminotransfer ALT/SGPT 35 U/L (13-56); Albumin, Serum 3.2 g/dL (3.2-5.0); Alkaline Phosphatase 100 U/L (45-117); Anion Gap 4 (5-15); BUN 10 mg/dL (7-18); BUN/Creat Ratio 21.5 RATIO (10-20); Calcium,Total 8.6 mg/dL (8.5-10.1); Chloride 109 mmol/L (98-107); Creatinine, Serum 0.46 mg/dL (0.55-1.02); EST Glomerular Filtration Rate 148 mL/min (>60); Est Glom Filt Rate - Afr Amer 179 mL/min (>60); Estimated Creatinine Clearance 129.36 ml/min; Globulin 4.3 g/dL (2.2-4.2); Glucose 87 mg/dL (74-106); Potassium 4.1 mmol/L (3.5-5.1); Protein, Total 7.5 g/dL (6.4-8.2); Sodium Level 140 mmol/L (136-145)
[2019-12-11 12:20] LABS: Anisocytosis 2+; Differential Comment SCANNED; Macrocytosis 1+; Ovalocyte 1+; Polychromasia 1+
[2019-12-11 12:21] LABS: Lactic Acid 0.6 mmol/L (0.4-1.9)
--- NOTE | 2019-12-11 13:06 | HP.PCM_ITS ---
Problem List (1) Vascular catheter fitting or adjustment Status: Chronic (2) Chemotherapy management, encounter for Status: Acute (3) Iron (Fe) deficiency anemia Status: Acute Qualifiers: Iron deficiency anemia type: chronic blood loss Qualified Code(s): D50.0 - Iron deficiency anemia secondary to blood loss (chronic) (4) Seasonal allergies Status: Acute (5) Sarcoidosis of lymph nodes Status: Chronic (6) Neutropenia due to and not concurrent with chemotherapy Status: Acute (7) Fever Status: Acute Qualifiers: Fever type: unspecified Qualified Code(s): R50.9 - Fever, unspecified (8) Thrombocytopenia due to drugs Status: Acute (9) Diarrhea due to drug Status: Resolved (10) Anemia Status: Acute Qualifiers: Anemia type: unspecified type Qualified Code(s): D64.9 - Anemia, un specified (11) Iron deficiency anemia Status: Chronic Qualifiers: Iron deficiency anemia type: chronic blood loss Qualified Code(s): D50.0 - Iron deficiency anemia secondary to blood loss (chronic) (12) Anemia due to chemotherapy Status: Chronic (13) Iron deficiency Status: Chronic (14) Encounter for education Status: Acute (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 Patient presented with fever and shortness of breath. Patient fever started 3 days prior to her admission. She checked her temperature at home and recorded 103.7. She took some Tylenol with some improvement. On the day of admission fever recurred and this time with shortness of breath with minimal activity. Patient has a portable pulse oximeter at home and recorded her oxygen saturation to be in the mid 80s at rest dropping to 60s with ambulation elected to present to the emergency department as a result. CT of the chest obtained demonstrated patchy bilateral infiltrate. COVID-19 assay was taking prior to patient being admitted Past Medical History Past Medical History (Chronic Problems): Chronic Problems (Last Reviewed 12/11/19 @ 14:[address] Jose Recinos MD) Vascular catheter fitting or adjustment (Chronic) Sarcoidosis of lymph nodes (Chronic) Iron deficiency anemia (Chronic) Anemia due to chemotherapy (Chronic) Iron deficiency (Chronic) Rectosigmoid cancer (Chronic ~05/2019) Medical History: Medical History (Last Reviewed 12/11/19 @ 14:[address] Jose Recinos MD) Rectosigmoid cancer (Chronic) Onset Date: ~05/2019 C19 Lymphadenopathy, generalized (Acute) R59.1 Hemorrhoids K64.9 Allergies Sulfa (Sulfonamide Antibiotics) Allergy (Intermediate, Verified 12/11/19 10:26) Rash Home Medications: Ambulatory Orders Medication Instructions Recorded Lidocaine/Prilocaine 1 applicatio TP DAILY PRN PRN 30 06/07/19 [Lidocaine-Prilocaine Cream] Days #1 tube Ondansetron [Ondansetron Odt] 8 mg PO Q8H PRN PRN 10 Days #30 06/07/19 tab.rapdis Cetirizine HCl [Zyrtec] 10 mg PO DAILY 08/19/19 Multivit-Min/Iron/Folic/Lutein 1 tab PO DAILY 12/11/19 [Centrum Silver Women Tablet] Surgical History: Surgical History (Last Reviewed 12/11/19 @ 14:[address] Jose Recinos MD) History of delivery (Resolved) Z98.891 Smoking Status: Former smoker - *Family History Maternal Family History: Family History (Last Reviewed 12/11/19 @ 14:[address] Jose Recinos MD) Mother COPD (chronic obstructive pulmonary disease) Father Skin cancer Emphysema lung Lung cancer Sister Heart disease Sepsis Other History of shingles Review of Systems Constitutional: Reports: Anorexia, Chills, Malaise, Weakness HEENT: Denies: Head Aches, Sinus Congestion, Sinus Drainage Respiratory: Reports: Shortness of Breath Gastrointestinal: Denies: Abdominal Pain, Hematemesis, Hematochezia, Nausea, Melena, Vomiting Genitourinary: Denies: Dysuria, Frequency, Hematuria, Urgency Musculoskeletal: Denies: Joint Pain, Joint Tenderness Skin: Denies: Rash Neurological: Denies: Focal weakness, Numbness, Tingling Psychiatric: Denies: Homicidal Ideations, Suicidal Ideations Hematologic/ Lymphatic: Denies: Easy Bruising, Easy Bleeding VTE Information - Inpt Only VTE Present on Admission: No VTE Mechan Device Prophylaxis: None VTE Pharm Prophylaxis ordered?: Yes Patient Problems: Active and Suspected Problems (Last Reviewed 12/11/19 @ 14:[address] Jose Recinos MD) Fever (Acute) Thrombocytopenia due to drugs (Acute) Anemia (Acute) Objective: GENERAL: cooperative HEENT: Atraumatic; EYES; Anicteric, Normal Conjunctiva NECK; supple, normal thyroid, RESPIRATORY: Diminished to auscultation CARDIOVASCULAR: Regular S1 S2, GI: soft, normoactive bowel sounds, : No Renal angle tenderness; EXTREMITIES: No edema, no clubbing, MUSCULOSKELETAL: no muscle waisting NEURO: Awake; no lateralizing signs. SKIN: No Rash PSYCH; Flat affect - Physical Exam Vitals/I&O's: Vital Signs Temp Pulse Resp BP Pulse Ox 97.5 F L 101 H 18 130/78 H 98 12/11/19 10:26 12/11/19 10:26 12/11/19 12:12 12/11/19 10:12/11/19 10:26 Oxygen Delivery Method Room Air Weight: 77.111 kg Body Mass Index (BMI) 27.4 Laboratory Results 12/11/19 11:00: WBC 4.1 L, RBC 2.54 L, Hgb 8.0 L, Hct 25.2 L, MCV 99.2 H, MCH 31.5, MCHC 31.7 L, RDW Std Deviation 85.7 H, RDW Coeff of Gatito 24.9 H, Plt Count 138 L, MPV 10.7, Immature Gran % (Auto) 2.000 H, Neut % (Auto) 81.7 H, Lymph % (Auto) 5.4 L, [place] % (Auto) 9.0, Eos % (Auto) 1.7, Baso % (Auto) 0.2, Absolute Neuts (auto) 3.3, Absolute Lymphs (auto) 0.22 L, Nucleated RBC % 0, Differential Comment SCANNED, Diff Path Review May foll, Polychromasia 1+, Anisocytosis 2+, Macrocytosis 1+, Ovalocytes 1+ 12/11/19 11:00: PT 12.8, INR 1.0, APTT 32.4 12/11/19 11:00: Sodium 140, Potassium 4.1, Chloride 109 H, Carbon Dioxide 27.0, Anion Gap 4 L, BUN 10, Creatinine 0.46 L, Estim Creat Clear Calc 129.36, Est GFR (MDRD) Af Amer 179, Est GFR (MDRD) Non-Af 148, BUN/Creatinine Ratio 21.5 H, Glucose 87, Calcium 8.6, Total Bilirubin 0.90, AST 36, ALT 35, Alkaline Phosphatase 100, Troponin I < 0.015, Total Protein 7.5, Albumin 3.2, Globulin 4.3 H, Albumin/Globulin Ratio 0.7 L 12/11/19 11:30: Lactic Acid 0.6 12/11/19 12:55: COVID-19 (YARIEL) Pending Assessment/Plan All Active Problems (Last Reviewed 12/11/19 @ 14:[address] Jose Recinos MD) Chemotherapy management, encounter for (Acute) Iron (Fe) deficiency anemia (Acute) Seasonal allergies (Acute) Diarrhea (Resolved) Neutropenia due to and not concurrent with chemotherapy (Acute) Fever (Acute) Thrombocytopenia due to drugs (Acute) Diarrhea due to drug (Resolved) Anemia (Acute) Encounter for education (Acute) Lymphadenopathy, generalized (Acute) History of delivery (Resolved) Patient is a 54-year-old lady with history of anorexia cancer status post chemoradiation presented with fever 1. Fever ?With high suspicion for viral pneumonia rule out COVID-19. Admitted to regular nursing floor placed under contact and droplet precautions whilst COVID-19 assay has been ruled out. Patient was empirically started on Levaquin and Rocephin in addition to supplemental oxygen with plans to consult pulmonary and ID if her assay comes back positive 2. Acute hypoxic respiratory failure ?Secondary to suspected underlying viral pneumonia. As stated above CT of the chest demonstrated bilateral patchy infiltrates with evidence of groundglass appearance throughout both lungs. Patient management is as described above 3. Acute cystitis ?Urinalysis obtained demonstrated mild pyuria and positive leukoesterase. Patient is on Rocephin. Urine culture sent will follow up on result 4. Anemia Secondary to anemia of malignancy as well as effective chemo monitoring H&H with plans to transfuse if patient becomes symptomatic 5. Mild thrombocytopenia ?Monitoring daily platelet count. Plans to discontinue Lovenox if platelet count starts dropping 6. DVT prophylaxis ?Lovenox Advance planning; did discuss with the patient and family (patient ) regarding advanced directives as well as CODE STATUS. Did explain the various scenarios involved ( FULL CODE, DNR CCA, DNR CCA with no intubation, and DNR CC and what each meant) patient elected full code with CPR and intubation if warranted. Order was placed. Time spent on discussion 18 minutes. Clinical Impression(s) from Imaging Studies Chest CTA 12/11/19 10:55 IMPRESSION: No evidence of pulmonary embolism. Patchy infiltrates in both lungs as described with evidence of groundglass appearance throughout both lungs. The patient does have a history of sarcoidosis. Gallstones. Splenomegaly. Electronically Signed: William Jordan, at 13:07 EDT , Service support , Inpatient E&M: 60532 Init Hosp L3 Procedures: 89742 Advncd Care Plan 30 Min
[2019-12-11 13:14] LABS: Mucous, Urine 0 SEEN /hpf (<or=2+); Red Blood Cells-Urine 0 SEEN /hpf (0-5)
[2019-12-11 13:15] LABS: Color, Urine Yellow (Yellow); Glucose, Dipstick Normal (Normal); Ketone-Dipstick Negative (Negative); Leukocyte Esterase-Dipstick 500 /ul (Negative); Nitrite-Dipstick Negative (Negative); Occult Blood-Urine Negative /ul (Negative); Protein-Dipstick Negative (Negative); Specific Gravity, Urine 1.005 (1.002-1.030); Urine Bilirubin Dipstick Negative (Negative); Urine Clarity Clear (Clear); Urine Urobilinogen Normal (Normal)
[2019-12-11 13:21] LABS: Squamous Epithelial Cells - UA 0-5 SEEN /hpf (5-10); White Blood Cells 5-10 SEEN /hpf (0-5)
[2019-12-11 13:22] LABS: Bacteria 1+ /hpf (None Seen)
--- NOTE | 2019-12-11 13:28 | NURSING ---
MED SURG COVID UNIT KITTOE FEVER, PNEUMONIA
--- NOTE | 2019-12-11 16:14 | ED.RN ---
INITIAL COVID TEST RESULTED INCONCLUSIVE. PT INFORMED OF FURTHER WAIT FOR ADMISSION PENDING RETEST. PT VERBALIZED UNDERSTANDING. DINNER TRAY OFFERED AND ORDERED FOR PT. PT DENIES FURTHER NEEDS AT THIS TIME.
[2019-12-11 19:00] LABS: Fibrinogen 646 mg/dl (203-444)
[2019-12-11 19:20] LABS: D-Dimer Quantitative (DVT/PE) 1.07 FEU/ug/m (0.27-0.49)
[2019-12-11] MEDS: 0.9% Normal Saline 1,000 ML 100 ML IV (19:40)
[2019-12-11 19:52] LABS: Prothrombin Time (Protime)PT. 12.7 SECONDS (11.7-14.9)
[2019-12-11 19:53] LABS: Fibrinogen 637 mg/dl (203-444)
[2019-12-11] MEDS: levoFLOXacin IV 750 MG/150 ML BAG 100 MG IV (20:15)
[2019-12-11 20:43] LABS: BNP,B-Type NATRIURETIC PEPTIDE 17.1 pg/mL (0-100)
[2019-12-11 20:48] LABS: Lactic Acid 0.6 mmol/L (0.4-1.9)
[2019-12-11 20:49] LABS: AST(SGOT) 32 U/L (15-37); Alanine Aminotransfer ALT/SGPT 34 U/L (13-56); Albumin, Serum 3.1 g/dL (3.2-5.0); Alkaline Phosphatase 94 U/L (45-117); CPK Total, Creatine Kinase 18 U/L (26-192); Globulin 4.2 g/dL (2.2-4.2); Protein, Total 7.3 g/dL (6.4-8.2)
[2019-12-11 20:51] LABS: Procalcitonin 0.21 ng/mL (0.00-0.09)
[2019-12-11] MEDS: Albuterol 2.5 MG/3 ML VIAL.NEB. INHALATION (22:16)
--- NOTE | 2019-12-11 22:22 | CPS ---
attempted sputum induction, pt had dry cough. albuterol given
[2019-12-11 23:42] LABS: M R Staph aureus DNA By PCR Negative (Negative); Probe Check PASS; Specimen Processing Control PASS
[2019-12-12 02:07] VITALS: BP 114/60; PULSE 97; RESP 18; TEMP 37.1; O2SAT 98
[2019-12-12] MEDS: 0.9% Normal Saline 1,000 ML 100 ML IV (05:19)
[2019-12-12 05:43] LABS: Hemoglobin 7.2 g/dL (12.0-15.0); Mean Corp Hgb Conc 31.3 g/dL (32-36); Mean Corpuscular Hgb 31.3 pg (27.0-32.0); Mean Platelet Vol. 10.6 fl (6.2-12.0); POSITIVE COUNT YES; POSITIVE DIFFERENTIAL YES; POSITIVE MORPHOLOGY YES; Platelet Count 115 K/mm3 (150-450); RBC Distribution Width CV 24.7 % (11.6-14.6); RBC Distribution Width SD 87.5 fl (35.1-43.9)
[2019-12-12 05:48] LABS: Differential Indicated MANUAL DIFF
[2019-12-12 06:03] LABS: Anion Gap 2 (5-15); BUN 8 mg/dL (7-18); BUN/Creat Ratio 16.1 RATIO (10-20); Calcium,Total 8.5 mg/dL (8.5-10.1); Chloride 111 mmol/L (98-107); EST Glomerular Filtration Rate 137 mL/min (>60); Est Glom Filt Rate - Afr Amer 165 mL/min (>60); Estimated Creatinine Clearance 119.01 ml/min; Glucose 85 mg/dL (74-106); Magnesium 2.2 mg/dL (1.6-2.6); Potassium 4.1 mmol/L (3.5-5.1); Sodium Level 141 mmol/L (136-145)
[2019-12-12 06:24] LABS: Absolute Lymphocyte Count 0.16 X10^3/uL (0.83-4.51); Absolute Neutrophil Count 1.7 X10^3/uL (2.0-7.7); Lymphocyte 8 % (19-41); Lymphocyte # 0.16 X10^3/ul (4.0); Metamyelocyte 2 % (0-1); Monocyte 7 % (0-10); Neutrophil-Band 3 % (0-5); Neutrophil-Segmented 82 % (47-70); Total Cells Counted 100 (MANUAL DIFF)
[2019-12-12 06:25] LABS: Hypochromasia 1+; Platelet Estimate SLT DEC (ADEQ); Red Cell Morphology N CYTIC NORMAL (NORM C&C)
[2019-12-12 08:10] VITALS: BP 145/66; PULSE 88; RESP 16; TEMP 36.6; O2SAT 98
[2019-12-12 08:23] VITALS: O2SAT 96
[2019-12-12] MEDS: Sodium Ferric Gluconat 250 MG in 0.9% Normal Saline 250 ML 135 MG IV (10:38)
[2019-12-12 10:40] VITALS: BP 145/66; PULSE 88; RESP 16; TEMP 36.4; O2SAT 97
[2019-12-12 10:57] VITALS: O2SAT 96
--- NOTE | 2019-12-12 11:00 | CASEMGMT ---
RN JEREMIAH Face to Face with patient for initial transition planning/care coordination assessment. RN CM introduced self and role at [facility]. Patient lying in bed, alert and oriented. Patient willing to participate in assessment and is able to answer all questions appropriately. Care providers, pharmacy, and demographics verified. Patient wishes to discharge home, denies need for home health at this time. Patient states she has no further needs or concerns at this time. CM to follow for discharge planning needs that may arise. PCP: Verenice Specialists: [place], oncologist Preferred Pharmacy: [facility] Insurance: MMO Prescription Benefit: yes Living Will/HPOA: none LNOK: Living Arrangements: Patient lives with in a 2 story home with bed and bath on the main level. Patient has 3-4 steps to enter the home with railing. Patient states she is independent at home Transportation: self/ DME/HHC: Patient denies DME or previous HHC. Disposition Plan: Patient to discharge home with family support and follow-up plans in place. Franchesca GIBSON, RN, CM
--- NOTE | 2019-12-12 11:05 | PCM.DC ---
- Discharge Diagnoses Current Active Problems: Current Active and Chronic Problems (Last Reviewed 12/11/19 @ 14:[address] Jose Recinos MD) Fever (Acute) Thrombocytopenia due to drugs (Acute) Anemia (Acute) Iron deficiency anemia (Chronic) Anemia due to chemotherapy (Chronic) Iron deficiency (Chronic) You will use the following diet at home:: No restrictions Your food should be the consistency of: Regular Your liquids should be the consistency of: Regular/Thin Discharge Activity: Return to Normal Activity Weight Bearing Status: Full weight bearing Allergies/Adverse Reactions: Allergies Sulfa (Sulfonamide Antibiotics) Allergy (Intermediate, Verified 12/11/19 10:26) Rash Medications to take at Discharge Lidocaine/Prilocaine [Lidocaine-Prilocaine Cream] 1 applicatio TP DAILY PRN PRN 30 Days #1 tube 06/07/19 Ondansetron [Ondansetron Odt] 8 mg PO Q8H PRN PRN 10 Days #30 tab.rapdis 06/07/19 Cetirizine HCl [Zyrtec] 10 mg PO DAILY 08/19/19 Multivit-Min/Iron/Folic/Lutein [Centrum Silver Women Tablet] 1 tab PO DAILY 12/11/19 levoFLOXacin tablet [Levaquin tablet] 500 mg PO DAILY #6 tab 12/12/19 The following prescriptions were given: levoFLOXacin tablet [Levaquin tablet] 500 mg PO DAILY #6 tab Transmission Status: Pending to [facility] Primary Care Physician: Kelvin Caldera MD [Primary Care Provider] - Please follow up with your Primary Care Physician in: in 1-2 weeks Test Results: Test results from this visit will be discussed in further detail at your follow-up appointment, if applicable.
[2019-12-12 12:12] LABS: Pathologist Review Reviewed
[2019-12-12 12:17] LABS: Pathologist Review Reviewed
--- NOTE | 2019-12-14 08:29 | DS.PCM_ITS ---
Discharge Date and Diagnosis Date of Admission: 12/11/19 Date of Discharge: 12/12/19 - Primary Discharge Diagnosis Acute Problems: #1 atypical pneumonia-etiology unclear #2 sarcoidosis #3 iron deficiency anemia-etiology unknown - Secondary Discharge Diagnosis Chronic Problems: Chronic Problems (Last Reviewed 12/11/19 @ 14:[address] Jose Recinos MD) Vascular catheter fitting or adjustment (Chronic) Sarcoidosis of lymph nodes (Chronic) Iron deficiency anemia (Chronic) Anemia due to chemotherapy (Chronic) Iron deficiency (Chronic) Rectosigmoid cancer (Chronic ~05/2019) Hospital Course and Treatment Operations: None Procedures: None Summary of Care Provided: The patient is a 54 year old F was seen in the emergency room at [facility] with a chief complaint of fever at home and a low pulse ox reading at home. Patient had a pulse oximeter that was her mother's and she checked her pulse ox due to some shortness of breath and she stated her pulse oximetry read in the 60s. Evaluation in the emergency room showed her pulse ox to be above 90% on room air, patient was afebrile, patient's white blood cell count was 4.1, hemoglobin was 0.8, comprehensive metabolic profile was within normal limits. CT of the chest was obtained, there is no evidence of pulmonary embolism but there were patchy infiltrates noted, lactic acid was normal, patient's COVID-19 test was negative. Patient was given IV antibiotics in the emergency room, she was placed into observation status on MedSurg 3, patient stated that she felt improved during her hospital stay and her Rocephin was discontinued and she was maintained on Levaquin. Patient was given an infusion of Venofer for for her iron deficiency anemia, the patient was never hypoxic in the hospital and the etiology of her pneumonia was unknown. On 12/12/2019, patient was seen and examined: On examination she appeared in good health and spirits, she does not appear to be in any distress. Vital signs as documented. Skin warm and dry and without overt rashes. Neck without JVD, thyroid appears normal, trachea is midline, neck is supple. Lungs clear, normal air movement was noted. Heart exam notable for regular rhythm, normal sounds and absence of murmurs, rubs or gallops. Abdomen unremarkable and without evidence of organomegaly, masses, or abdominal aortic enlargement, bowel sounds are present in all 4 quadrants, no abdominal tenderness was noted. Extremities nonedematous, no cyanosis was noted, no clubbing was noted. Neuro: Cranial nerves II through XII are grossly intact, no focal motor deficits were noted, sensation to light touch and pinprick is intact, motor exam 5/5 throughout. Psych: Patient is alert and oriented x3, she does not appear anxious or depressed, she does not appear agitated. I felt the patient was stable for discharge on 12/12/2019, she was discharged on an outpatient course of Levaquin to complete 7 days of treatment. - Physical Exam Vitals/I&O's: Vital Signs Temp Pulse Resp BP Pulse Ox 97.6 F L 88 16 145/66 H 96 12/12/19 10:40 12/12/19 10:40 12/12/19 10:40 12/12/19 10:40 12/12/19 10:57 Oxygen Delivery Method Room Air Weight: 78.199 kg Body Mass Index (BMI) 27.8 Intake and Output for Last 24 Hours 12/12/19 12/13/19 12/14/19 23:59 23:59 23:59 Intake Total 2260.00 / 2260.00 Output Total 2600 / 2600 Balance -340.00 / -340.00 Microbiology Past 72 Hours 12/11/19 11:35 Blood Culture (Wb) - Anticubital Left Blood Culture - Preliminary No growth in 48 hours. 12/11/19 11:30 Blood Culture (Wb) - Port Blood Culture - Preliminary No growth in 48 hours. 12/11/19 22:00 Mucosa - Nose Respiratory Panel (PCR) - Final 12/11/19 13:00 Urine, Random Legionella Antigen - Final 12/11/19 13:00 Urine, Clean Catch Streptococcus pneumoniae Antigen (M - Jil l Discharge Activity: Return to Normal Activity Weight Bearing Status: Full weight bearing Home Medications: Medications to take at Discharge Lidocaine/Prilocaine [Lidocaine-Prilocaine Cream] 1 applicatio TP DAILY PRN PRN 30 Days #1 tube 06/07/19 Ondansetron [Ondansetron Odt] 8 mg PO Q8H PRN PRN 10 Days #30 tab.rapdis 06/07/19 Cetirizine HCl [Zyrtec] 10 mg PO DAILY 08/19/19 Multivit-Min/Iron/Folic/Lutein [Centrum Silver Women Tablet] 1 tab PO DAILY 12/11/19 levoFLOXacin tablet [Levaquin tablet] 500 mg PO DAILY #6 tab 12/12/19 Following Prescriptions Were Given to Patient: levoFLOXacin tablet [Levaquin tablet] 500 mg PO DAILY #6 tab Transmission Status: Received by [facility] Primary Care Physician: Kelvin Caldera MD [Primary Care Provider] - Please follow up with your Primary Care Physician in: in 1-2 weeks Please Follow Up With: Kelvin Caldera MD When: 1 to 2 wk Disposition: Home Minutes spent on discharge:: 30 Patient Condition:: Stable Medical Necessity - Tobacco Use Smoking Status: Former smoker Tobacco Use: Cigarettes Meaningful Use Info Meaningful Use Diagnoses (Choose all that apply): None applicable OBSV E&M: 13216 Observation care discharge
== END 2019-12-12 13:30 | disposition home or self-care (01) ==
LOC: ED 11:24 → MS3 12-12 06:08
PROVIDERS: Admitting Provider Internal Medicine; Emergency Provider Emergency Medicine; PCP Family Medicine; Visit Provider Internal Medicine
DX: J18.9 Pneumonia, unspecified organism (principal); Z23 Encounter for immunization; N30.00 Acute cystitis without hematuria; J96.01 Acute respiratory failure with hypoxia; D50.0 Iron deficiency anemia secondary to blood loss (chronic); D86.1 Sarcoidosis of lymph nodes; D69.59 Other secondary thrombocytopenia; D64.81 Anemia due to antineoplastic chemotherapy; C19 Malignant neoplasm of rectosigmoid junction; Z92.3 Personal history of irradiation; Z79.899 Other long term (current) drug therapy; Z87.891 Personal history of nicotine dependence; R06.02 Shortness of breath
CPT/HCPCS: 36415; 36591; 71275; 80048; 80053; 80076; 81001; 82550; 83605; 83735; 83880; 84145; 84484; 85025; 85379; 85384; 85610; 85730; 86140; 87040; 87449; 87633; 87635; 87641; 93005; 94640; 96361; 96365; 96366; 96367; 99218; 99251; 99285; J7030; J7050; Q9967; 90686; A4216; G0378; G0463; J0696; J2916; U0003

== ENCOUNTER → 2019-12-24 16:40 | Outpatient (CLI) | payer OTHER, SELFPAY ==
[2019-05-17 14:05] VITALS: BMI 27.5
[2019-12-24 14:19] VITALS: BMI 27.2
--- NOTE | 2019-12-24 16:50 | RAD_ITS ---
STUDY: X-RAY CHEST REASON FOR EXAM: Female, 54 years old. Cough and fever. History of sarcoidosis. TECHNIQUE: Single AP portable view of the chest. COMPARISON: Chest, 08/19/2019. CTA of the chest, 12/11/2019. FINDINGS: Right jugular Port-A-Cath without change. Lungs well-expanded. There is mild perihilar interstitial prominence most marked in the lower lobes. This appears unchanged from previous examination. There is no demonstrated pleural abnormality. Normal size heart. Normal mediastinum and miquel. Normal visualized pulmonary arteries. Normal visualized aortic arch and descending thoracic aorta. No visualized osseous changes. There is no demonstrated abnormality of the visualized soft tissue structures of the upper abdomen. RAD/Chest PA and Lateral IMPRESSION: Stable bibasilar densities unchanged from previous examination. Electronically Signed: Geovani Finch DO at 17:00 EDT Tel [phone], Service support ,
== END ==
PROVIDERS: PCP Family Medicine; Referring Provider Nurse Practitioner Family; Visit Provider Nurse Practitioner Family
DX: R05 Cough (principal); R06.02 Shortness of breath; R50.9 Fever, unspecified
CPT/HCPCS: 71046

== ENCOUNTER → 2019-12-25 09:55 | Outpatient (CLI) | payer OTHER, SELFPAY ==
[2019-05-17 14:05] VITALS: BMI 27.5
[2019-12-24 14:19] VITALS: BMI 27.2
== END ==
PROVIDERS: PCP Family Medicine; Referring Provider Nurse Practitioner Family; Visit Provider Nurse Practitioner Family
DX: R05 Cough (principal); R06.02 Shortness of breath; R50.9 Fever, unspecified
CPT/HCPCS: 87635; C9803; U0003

== ENCOUNTER → 2020-01-08 09:50 | Outpatient (CLI) | payer OTHER, SELFPAY ==
[2019-05-17 14:05] VITALS: BMI 27.5
[2019-12-24 14:19] VITALS: BMI 27.2
== END ==
PROVIDERS: PCP Family Medicine; Referring Provider Colon & Rectal Surgery; Visit Provider Colon & Rectal Surgery
DX: Z01.818 Encounter for other preprocedural examination (principal)
CPT/HCPCS: 87635; C9803; U0003

== ENCOUNTER → 2020-02-26 15:17 | Outpatient (CLI) | payer OTHER, SELFPAY ==
[2019-05-17 14:05] VITALS: BMI 27.5
[2020-02-22 10:43] VITALS: BMI 25.8
== END ==
PROVIDERS: PCP Family Medicine; Referring Provider Nurse Practitioner Family; Visit Provider Nurse Practitioner Family
DX: Z01.818 Encounter for other preprocedural examination (principal)
CPT/HCPCS: 87635; C9803; U0002

== ENCOUNTER → 2020-03-07 15:50 | Outpatient (CLI) | payer OTHER, SELFPAY ==
[2019-05-17 14:05] VITALS: BMI 27.5
[2020-03-05 14:15] VITALS: BMI 26.4
--- NOTE | 2020-03-07 15:52 | CT_ITS ---
STUDY: CT CHEST WITH CONTRAST REASON FOR EXAM: Female, 54 years old. Rectal cancer restaging, eval abdominal lymph node, denies pain or problems. Prior ileostomy, chemotherapy, radiation, Power Port. RADIATION DOSAGE (If Supplied By Facility): CTDIvol = ( 13.97 ) mGy, DLP = ( 1231.97 ) mGycm TECHNIQUE: Transaxial imaging was performed following intravenous administration of Oral and amp; IV Readi-CAT and amp; 100mL Isovue-300. Individualized dose optimization techniques were used for this CT. COMPARISON: 12/11/2019. FINDINGS: There is hyperinflation of the lungs consistent with chronic obstructive lung disease (COPD). Since prior study, essentially complete clearing of previously described widespread groundglass pulmonary opacities. Currently, lungs are clear. No definite infiltrates. No suspicious nodules. No effusions. There is no demonstrated pleural abnormality. Normal heart and pericardium. Normal mediastinum. Normal hilar regions. Normal enhanced pulmonary arteries. Normal aorta arch and descending thoracic aorta. Normal osseous structures. CT/Chest WITH Contrast IMPRESSION: There are findings consistent with COPD. There is no evidence of acute chest disease. Electronically Signed: Vinh Gupta MD at 17:58 EST , Service support ,
--- NOTE | 2020-03-07 15:52 | CT_ITS ---
STUDY: CT ABDOMEN AND PELVIS WITH CONTRAST REASON FOR EXAM: Female, 54 years old. Rectal cancer restaging, eval abdominal lymph node, denies pain or problems. Prior ileostomy, chemotherapy, radiation, Power Port. RADIATION DOSAGE (If Supplied By Facility): CTDIvol = ( 13.97 ) mGy, DLP = ( 1231.97 ) mGycm TECHNIQUE: Transaxial images were obtained from the dome of the diaphragm to the symphysis pubis with oral contrast. Oral and amp; IV Readi-CAT and amp; 100mL Isovue-300 was administered. Sagittal and coronal images were reconstructed. Individualized dose optimization techniques were used for this CT. COMPARISON: 10/09/2019. FINDINGS: The visualized lung bases are unremarkable. The visualized portions of the heart are within normal limits. There is decreased attenuation of the liver consistent with steatosis. No masses or focal abnormalities. There is at least one gallstone. Ultrasound recommended. There is moderate splenomegaly. Normal pancreas. Normal bilateral adrenal glands. Normal right kidney. Normal left kidney. Normal visualized stomach. Normal small intestine. Since previous study patient has had resection of the rectosigmoid. There is a right lower quadrant ileostomy. In the pelvis small amount of free fluid is seen. No gross pelvic mass is seen. No gross adenopathy. Normal abdominal aorta. Normal inferior vena cava. Normal retroperitoneum. Normal urinary bladder. Normal abdominal wall. Normal osseous structures. CT/Abdomen/Pelvis WITH Contrast IMPRESSION: Since prior study there has been resection of the rectosigmoid. There is a new right lower quadrant ileostomy. No gross mass or adenopathy seen. Hepatosplenomegaly. Electronically Signed: Vinh Gupta MD at 18:04 EST , Service support ,
== END ==
PROVIDERS: PCP Family Medicine; Referring Provider Student in an Organized Health Care Education/Training Program; Visit Provider Student in an Organized Health Care Education/Training Program
DX: C19 Malignant neoplasm of rectosigmoid junction (principal)
CPT/HCPCS: 71260; 74177; Q9967

== ENCOUNTER → 2020-04-15 17:46 | Outpatient (CLI) | payer OTHER, SELFPAY ==
[2019-05-17 14:05] VITALS: BMI 27.5
[2020-04-08 10:56] VITALS: BMI 25.9
== END ==
PROVIDERS: PCP Family Medicine; Referring Provider Colon & Rectal Surgery; Visit Provider Colon & Rectal Surgery
DX: Z01.818 Encounter for other preprocedural examination (principal)
CPT/HCPCS: 87635; C9803; U0003

== ENCOUNTER → 2020-05-29 14:54 | Outpatient (CLI) | payer OTHER, SELFPAY ==
[2019-05-17 14:05] VITALS: BMI 27.5
[2020-04-08 10:56] VITALS: BMI 25.9
== END ==
PROVIDERS: PCP Family Medicine; Referring Provider Nurse Practitioner Acute Care; Visit Provider Nurse Practitioner Acute Care
DX: R06.02 Shortness of breath (principal)
CPT/HCPCS: 87635; C9803; U0002

== ENCOUNTER → 2020-06-24 08:04 | Outpatient (CLI) | payer OTHER, SELFPAY ==
[2019-05-17 14:05] VITALS: BMI 27.5
[2020-06-02 09:18] VITALS: BMI 26.9
[2020-06-03 15:26] VITALS: BMI 26.9
--- NOTE | 2020-06-24 08:07 | BI_ITS ---
MAMMOGRAPHY - BILATERAL SCREENING 3-D TOMOSYNTHESIS REASON FOR EXAM: Female, 54 years old. SCREENING PERTINENT HISTORY: No significant family history. TECHNIQUE: 2-D mammograms and 3-D Tomosynthesis of the breast (s) were performed. CAD was performed. COMPARISON: 2016 FINDINGS: The breast composition is composed of scattered fibroglandular density. Scattered benign calcifications are seen. No dense spiculated masses or suspicious microcalcifications are identified. No architectural distortion is identified. There is no skin thickening or retraction. There has been no significant change since the prior study. BI/SCRN MAMM (CAD)W/FRANDY BILAT IMPRESSION: No mammographic signs of malignancy. Routine yearly mammograms recommended. ASSESSMENT CATEGORY: BIRADS Category 2: Benign. A letter regarding these results will be sent to the patient by the facility within 30 days. FOLLOW UP RECOMMENDATION: Yearly follow up mammogram recommended. (A) Approximately 10% of breast cancers are not detected by mammography. A normal mammogram should not delay biopsy of a clinically suspicious abnormality. Electronically Signed: Lisandro Parks MD at 9:15 EDT , Service support ,
--- NOTE | 2020-06-24 12:39 | PFT ---
INTRODUCTION: The patient is a 54-year-old female that presents for pulmonary function studies secondary to a diagnosis of COPD. Respiratory therapy reports good patient effort. Bronchodilators were used during testing. INTERPRETATION: Forced expiration spirometry demonstrates no evidence of a large airways obstructive ventilatory defect. There was a significant response to aerosolized bronchodilators noted. Spirograms are of suboptimal quality and terminate prior to 6 seconds, likely underestimating FVC. Body plethysmography was performed and reveals a decreased TLC to 4.26 L, 80% of predicted, indicative of a mild restrictive ventilatory impairment. Diffusing capacity by single breath CO is severely reduced at 38% of predicted. IMPRESSION: Mild restrictive ventilatory impairment with disproportionate reduction in diffusing capacity.
== END ==
PROVIDERS: PCP Family Medicine; Referring Provider Internal Medicine Medical Oncology; Visit Provider Internal Medicine Medical Oncology
DX: Z12.31 Encounter for screening mammogram for malignant neoplasm of breast (principal); J44.9 Chronic obstructive pulmonary disease, unspecified
CPT/HCPCS: 77063; 77067; 94060; 94726; 94729

== ENCOUNTER → 2020-07-01 08:13 | Outpatient (CLI) | payer OTHER, SELFPAY ==
[2019-05-17 14:05] VITALS: BMI 27.5
[2020-06-02 09:18] VITALS: BMI 26.9
[2020-06-03 15:26] VITALS: BMI 26.9
[2020-07-01 10:45] VITALS: PULSE 109; PULSE 110; PULSE 111; PULSE 112; PULSE 114; PULSE 116; PULSE 119; O2SAT 87; O2SAT 88; O2SAT 89; O2SAT 91; O2SAT 93
--- NOTE | 2020-07-01 10:49 | CPS ---
PATIENT WALK DONE ENTIRELY ON ROOM AIR. SPO2 LOWEST AT 87%, PATIENT DECLINED OXYGEN AND WISHED TO CONTINUE WALK TEST SHE WAS NOT SOB. WALK CONTINUED, DISCUSSED WITH THE PATIENT RISKS OF DECREASED SPO2. SHE VOICES UNDERSTANDING, WAS NOT CYANOTIC AND DENIED SOB, WISHES TO DISCUSS WITH DR. YBARRA ON F/U VISIT THIS WEEK BEFORE MAKING DECISION TO GET OXYGEN AT HOME. SHE DID NOT REQUEST OR REQUIRE ANY REST PERIODS DURING AMBULATION AND SPO2 RECOVERED QUICKLY UPON REST.
--- NOTE | 2020-07-01 14:06 | WT_ITS ---
PSN 6 Minute Walk Test - 6 Minute Walk Test 6 Minute Walk Test: 6 Minute Walk Test PSN:6-Minute Walk Test Start: 07/01/20 10:45 Freq: Status: Active Protocol: RESP.6MINW Document 07/01/20 10:45 [facility] (Rec: 07/01/20 10:55 [facility] [id number]) 6 Minute Walk Test Date Performed 07/01/20 Time Performed 08:15 Height 5 ft 6 in Weight: 73.482 kg Weight in Pounds 162.[address]: Morena Soares [employer] Assistive device used: None Pre-test Oxygen Delivery Method Room Air Pulse Ox (%) 93 Pulse Rate (60-100 beats/min) 110 H Dyspnea Vivian Scale (0-10) 0 1st minute Oxygen Delivery Method Room Air Pulse Ox (%) 91 Pulse Rate (60-100 beats/min) 109 H Dyspnea Vivian Scale (0-10) 0 Number of Rests Taken 0 2nd minute Oxygen Delivery Method Room Air Pulse Ox (%) 88 Pulse Rate (60-100 beats/min) 111 H Dyspnea Vivian Scale (0-10) 0 Number of Rests Taken 0 3rd minute Oxygen Delivery Method Room Air Pulse Ox (%) 87 Pulse Rate (60-100 beats/min) 112 H Dyspnea Vivian Scale (0-10) 0 Number of Rests Taken 0 4th minute Oxygen Delivery Method Room Air Pulse Ox (%) 89 Pulse Rate (60-100 beats/min) 114 H Dyspnea Vivian Scale (0-10) 0 Number of Rests Taken 0 5th minute Oxygen Delivery Method Room Air Pulse Ox (%) 89 Pulse Rate (60-100 beats/min) 116 H Dyspnea Vivian Scale (0-10) 0 Number of Rests Taken 0 6th minute Oxygen Delivery Method Room Air Pulse Ox (%) 88 Pulse Rate (60-100 beats/min) 119 H Dyspnea Vivian Scale (0-10) 0 Number of Rests Taken 0 Post-test Oxygen Delivery Method Room Air Pulse Ox (%) 93 Pulse Rate (60-100 beats/min) 109 H Dyspnea Vivian Scale (0-10) 0 Full Laps Walked 14 Partial Lap, Number of Tiles Walked 49 Total Distance Walked (ft) 875 07/01/20 10:49 Cardiopulmonary Services by Tess rByant PATIENT WALK DONE ENTIRELY ON ROOM AIR. SPO2 LOWEST AT 87%, PATIENT DECLINED OXYGEN AND WISHED TO CONTINUE WALK TEST SHE WAS NOT SOB. WALK CONTINUED, DISCUSSED WITH THE PATIENT RISKS OF DECREASED SPO2. SHE VOICES UNDERSTANDING, WAS NOT CYANOTIC AND DENIED SOB, WISHES TO DISCUSS WITH DR. YBARRA ON F/U VISIT THIS WEEK BEFORE MAKING DECISION TO GET OXYGEN AT HOME. SHE DID NOT REQUEST OR REQUIRE ANY REST PERIODS DURING AMBULATION AND SPO2 RECOVERED QUICKLY UPON REST. Initialized on 07/01/20 10:49 - END OF NOTE - Interpretation Interpretation: The patient was able to ambulate 875 feet over the course of 6 minutes on room air with no assistive devices or breaks. The patient did desaturate to 87%, but refused supplemental oxygen. Patient was noted to be persistently tachycardic throughout testing with a peak heart rate of 119 bpm. - Recommendations Recommendations: The patient would benefit from 2 L nasal cannula with exertion, but refused supplemental oxygen at the time of testing.
== END ==
PROVIDERS: PCP Family Medicine; Referring Provider Nurse Practitioner Acute Care; Visit Provider Nurse Practitioner Acute Care
DX: J44.9 Chronic obstructive pulmonary disease, unspecified (principal)
CPT/HCPCS: 94618

== ENCOUNTER → 2020-07-03 13:53 | Outpatient (CLI) | payer OTHER, SELFPAY ==
[2019-05-17 14:05] VITALS: BMI 27.5
[2020-07-03 13:15] VITALS: BMI 26.3
[2020-07-03 14:29] LABS: D-Dimer Quantitative (DVT/PE) 2.56 FEU/ug/m (0.27-0.49)
[2020-07-03 15:30] LABS: Anion Gap 3 (5-15); BUN 16 mg/dL (7-18); BUN/Creat Ratio 25.8 RATIO (10-20); Calcium,Total 8.9 mg/dL (8.5-10.1); Chloride 107 mmol/L (98-107); Creatinine, Serum 0.62 mg/dL (0.55-1.02); EST Glomerular Filtration Rate 106 mL/min (>60); Est Glom Filt Rate - Afr Amer 128 mL/min (>60); Glucose 103 mg/dL (74-106); Potassium 3.7 mmol/L (3.5-5.1); Sodium Level 139 mmol/L (136-145)
[2020-07-07 17:58] LABS: Angiotensin Convert Enzyme 60 U/L (14-82)
== END ==
LOC: PAVLAB 13:55 → LAB 14:56
PROVIDERS: Nurse Practitioner Acute Care; PCP Family Medicine; Referring Provider Internal Medicine Critical Care Medicine; Visit Provider Internal Medicine Critical Care Medicine
DX: D86.0 Sarcoidosis of lung (principal); R06.02 Shortness of breath; R05 Cough
CPT/HCPCS: 36415; 80048; 82164; 85379

== ENCOUNTER → 2020-07-03 15:03 | Outpatient (CLI) | payer OTHER, SELFPAY ==
[2019-05-17 14:05] VITALS: BMI 27.5
[2020-07-03 13:15] VITALS: BMI 26.3
--- NOTE | 2020-07-03 15:20 | CT_ITS ---
STUDY: CTA CHEST REASON FOR EXAM: Female, 54 years old. Elevated d-dimer RADIATION DOSAGE (If Supplied By Facility): CTDIvol = ( 11.51 ) mGy, DLP = ( 333.89 ) mGycm TECHNIQUE: The examination was performed with the intravenous administration of IV 100mL Isovue-370. Post-processing of the angiographic images was performed, with multiplanar reformation and 3D reconstruction. Individualized dose optimization techniques were used for this CT. COMPARISON: Comparison is made with prior study dated 12/11/2019. FINDINGS: Normal enhancement of the main pulmonary artery and right and left pulmonary arteries. Normal enhancement of the bilateral peripheral pulmonary arteries. There is no demonstrated pulmonary embolism. Normal thoracic aorta and visualized great vessels. There is no demonstrated aortic dissection. Normal heart and pericardium. Normal mediastinum. Normal hilar regions. Normal visualized trachea and bronchi. Hyperinflation. Mild degree of emphysematous changes with bullous formation worse in the upper lobes. Increased interstitial markings with areas of confluence in the lower lobes as well as in the right middle lobe and lingular segment of the left upper. These are essentially unchanged and most likely represent scarring. The patient does have a history of sarcoidosis. Normal pleura. Normal chest wall structures. There are degenerative changes of thoracic spine. Normal visualized upper abdomen. CT/CTA Chest W/WO Contrast IMPRESSION: No evidence of pulmonary embolism. Stable appearance of the lungs with evidence of hyperinflation and emphysematous changes with increased markings in the lungs as described with areas of confluence suggestive of scarring. The patient has a history of sarcoidosis. Electronically Signed: William Jordan MD at 15:57 EDT , Service support ,
== END ==
PROVIDERS: PCP Family Medicine; Referring Provider Nurse Practitioner Acute Care; Visit Provider Nurse Practitioner Acute Care
DX: R79.89 Other specified abnormal findings of blood chemistry (principal)
CPT/HCPCS: 71275; Q9967

== ENCOUNTER → 2020-07-04 12:54 | Outpatient (CLI) | payer OTHER, SELFPAY ==
[2019-05-17 14:05] VITALS: BMI 27.5
[2020-07-03 13:15] VITALS: BMI 26.3
--- NOTE | 2020-07-04 12:56 | ECHOD_ITS ---
Reason For Study: SOB Procedure This was a 2D Doppler, Color Flow transthoracic echocardiogram. The exam was of adequate technical quality. Exam performed in department. Left Ventricle Normal LV size. Left ventricular systolic function is normal. The estimated ejection fraction is 65 %. The global longitudinal strain = -21 % (normal). Transmitral doppler flow suggestive of impaired relaxation of left ventricle. No regional wall motion abnormalities noted. Right Ventricle Normal RV size. Normal systolic function. Atria The left atrium is mildly enlarged. Normal right atrium. No doppler evidence for ASD. Bubble contrast study negative for right to left interatrial shunt. Mitral Valve There is mild to moderate mitral annular calcification. Extension of the mitral annular calcification on the base of the posterior mitral valve leaflet. Mild diffuse mitral valve thickening. Trivial mitral valve insufficiency. Tricuspid Valve Normal tricuspid valve. Trivial tricuspid valve insufficiency. Right ventricular systolic pressure estimated to be 27 mmHg. Aortic Valve Trisinus/trileaflet aortic valve. Mild diffuse aortic valve thickening. Pulmonic Valve The pulmonic valve is not well visualized. Mild (1+) pulmonic valve insufficiency. Great Vessels Normal sized aortic root. Pericardium/Pleural No pericardial effusion. Medication 22 gauge I.V. with prn adaptor inserted into right arm. Performed a rapid injection of agitated mix of 9 cc saline and 1cc air to assess for atrial septal defect. MMode/2D Measurements & Calculations LVIDd: 3.7 cm IVSd: 1.3 cm Ao root diam: 3.0 cm LVIDs: 2.2 cm LVPWd: 1.1 cm RVDd: 2.8 cm FS: 40.9 % LAV(MOD-bp): 39.3 ml EDV(MOD-sp4): 79.6 ml EDV(MOD-sp2): 84.6 ml LAV(MOD-bp) Indexed: 21.3 ml/m2 ESV(MOD-sp4): 30.8 ml EF(MOD-sp2): 60.2 % LAV(MOD-sp2): 32.8 ml EF(MOD-sp4): 61.4 % LAV(MOD-sp4): 42.9 ml SV(MOD-sp4): 48.9 ml SV(MOD-sp2): 50.9 ml LA A4 area: 15.7 cm2 LA dimension(2D): 4.2 cm RA A4 area: 11.4 cm2 Doppler Measurements & Calculations MV E max dann: 77.5 cm/sec Lat Peak E' Dann: 8.0 cm/sec Med Peak E' Dann: 6.0 cm/sec MV A max dann: 93.3 cm/sec E/E' lat: 9.7 E/E' med: 12.9 MV E/A: 0.83 Ao V2 max: 158.4 cm/sec LV V1 max: 122.2 cm/sec PA V2 max: 95.2 cm/sec Ao max P.0 mmHg LV V1 max P.0 mmHg TR max dann: 246.3 cm/sec TR max P.3 mmHg ECHO/Echo Complete Interpretation Summary Left ventricular systolic function is normal. The estimated ejection fraction is 65 %. The global longitudinal strain = -21 % (normal). The left atrium is mildly enlarged. There is mild to moderate mitral annular calcification. Extension of the mitral annular calcification on the base of the posterior mitr al valve leaflet. Mild diffuse mitral valve thickening. Trivial mitral valve insufficiency. Trivial tricuspid valve insufficiency. Mild diffuse aortic valve thickening. Mild (1+) pulmonic valve insufficiency. Right ventricular systolic pressure estimated to be 27 mmHg. Comment: 2D echocardiographic images obtained demonstrate findings potentially compatible with the tip of a central venous catheter noted to be entering the right atrium. Ordering Physician: Anibal Moreno Referring Physician: Kelvin Caldera M.D. Performed By: Lucretia Holman RDCS
== END ==
PROVIDERS: PCP Family Medicine; Referring Provider Internal Medicine Critical Care Medicine; Visit Provider Internal Medicine Critical Care Medicine
DX: R09.02 Hypoxemia (principal); R06.02 Shortness of breath
CPT/HCPCS: 93306; A4216

== ENCOUNTER → 2020-10-16 08:01 | Outpatient (CLI) | payer OTHER, SELFPAY ==
[2019-05-17 14:05] VITALS: BMI 27.5
[2020-10-08 05:52] VITALS: BMI 27.3
[2020-10-16 08:20] VITALS: PULSE 106; PULSE 111; PULSE 117; PULSE 118; PULSE 121; PULSE 92; PULSE 96; O2SAT 94; O2SAT 95; O2SAT 96; O2SAT 98
--- NOTE | 2020-10-16 13:16 | PCM.PSN.6M ---
PSN 6 Minute Walk Test 6 Minute Walk Test 6 Minute Walk Test: 6 Minute Walk Test PSN:6-Minute Walk Test Start: 10/16/20 08:20 Freq: Status: Active Protocol: RESP.6MINW Document 10/16/20 08:20 [facility] (Rec: 10/16/20 08:24 FR [id number]) 6 Minute Walk Test Date Performed 10/16/20 Time Performed 08:00 Height 5 ft 6 in Weight: 81.647 kg Weight in Pounds 180.0 lbs Assistive device used: None Pre-test Oxygen Delivery Method Room Air Pulse Ox (%) 98 Pulse Rate (60-100 beats/min) 92 Dyspnea Vivian Scale (0-10) 0 Exertion Vivian Scale (6-20) 6 1st minute Oxygen Delivery Method Room Air Pulse Ox (%) 98 Pulse Rate (60-100 beats/min) 106 H 2nd minute Oxygen Delivery Method Room Air Pulse Ox (%) 96 Pulse Rate (60-100 beats/min) 111 H 3rd minute Oxygen Delivery Method Room Air Pulse Ox (%) 94 Dyspnea Vivian Scale (0-10) 115 4th minute Oxygen Delivery Method Room Air Pulse Ox (%) 95 Pulse Rate (60-100 beats/min) 121 H 5th minute Oxygen Delivery Method Room Air Pulse Ox (%) 95 Pulse Rate (60-100 beats/min) 117 H 6th minute Oxygen Delivery Method Room Air Pulse Ox (%) 95 Pulse Rate (60-100 beats/min) 118 H Dyspnea Vivian Scale (0-10) 0 Exertion Vivian Scale (6-20) 6 Number of Rests Taken 0 Post-test Oxygen Delivery Method Room Air Pulse Ox (%) 98 Pulse Rate (60-100 beats/min) 96 Full Laps Walked 23 Partial Lap, Number of Tiles Walked 9 Total Distance Walked (ft) 1366 Interpretation Interpretation: The patient ambulated 1366 feet over the course of 6 minutes beginning on room air without assistive devices or breaks. Pretesting oxygen saturation was noted to be 98% on room air. With ambulation, the ro oxygen saturation was 94%. There was no significant exertional oxygen desaturation. Recommendations Recommendations: There is no indication for the use of supplemental oxygen at this time.
== END ==
PROVIDERS: PCP Family Medicine; Referring Provider Internal Medicine Critical Care Medicine; Visit Provider Internal Medicine Critical Care Medicine
DX: D86.0 Sarcoidosis of lung (principal)
CPT/HCPCS: 94618

== ENCOUNTER → 2020-12-01 08:20 | Outpatient (CLI) | payer OTHER, SELFPAY ==
[2019-05-17 14:05] VITALS: BMI 27.5
[2020-08-26 06:19] VITALS: BMI 29.0
--- NOTE | 2020-12-01 08:25 | CT_ITS ---
STUDY: CT ABDOMEN AND PELVIS WITH CONTRAST REASON FOR EXAM: Female, 55 years old. MONITORING-RECTAL CANCER RADIATION DOSAGE (If Supplied By Facility): CTDIvol = ( 15.01 ) mGy, DLP = ( 1122.18 ) mGycm TECHNIQUE: Transaxial images were obtained from the dome of the diaphragm to the symphysis pubis with oral contrast. Oral and amp; IV Readi-CAT and amp; 100mL Isovue-300 was administered. Sagittal and coronal images were reconstructed. Individualized dose optimization techniques were used for this CT. COMPARISON: Comparison is made with prior study dated 03/07/2020. FINDINGS: The visualized lung bases are unremarkable. A dual chamber pacemaker is seen. There is decreased attenuation of the liver consistent with steatosis. Questionable tiny gallstone. There is mild splenomegaly. Normal pancreas. Normal bilateral adrenal glands. Normal right kidney. Normal left kidney. Normal visualized stomach. Normal small intestine. Surgical anastomosis seen in the lower rectum. Stable soft tissue prominence in the presacral space suggestive of postoperative change. This is stable. The previously seen ileostomy in the right lower quadrant has been reversed. There is scattered atherosclerotic calcification of the abdominal aorta, without a demonstrated aneurysm. Normal inferior vena cava. There is borderline retroperitoneal lymphadenopathy with enlarged nodes no greater than 10mm in the short axis diameter. Normal urinary bladder. Heterogeneous appearance of the uterus suggestive of a fibroid uterus. Normal abdominal wall. Since prior examination, there is approximately 20% loss of height of the superior endplate of the L5 vertebra. CT/Abdomen/Pelvis WITH Contrast IMPRESSION: The patient is status post rectal surgery with anastomosis at the level of the lower rectum with stable presacral soft tissue prominence. Fatty infiltration of the liver. Splenomegaly. Tiny gallstone. Interval compression of the superior endplate of the L5 vertebrae. Electronically Signed: William Jordan MD at 12:43 EDT , Service support ,
[2020-12-01] MEDS: 0.9% Saline Lock 10 ML Syringe IV (09:00)
== END ==
PROVIDERS: PCP Family Medicine; Referring Provider Internal Medicine Medical Oncology; Visit Provider Internal Medicine Medical Oncology
DX: C19 Malignant neoplasm of rectosigmoid junction (principal)
CPT/HCPCS: 74177; Q9967; A4216

== ENCOUNTER → 2021-02-09 15:14 | Outpatient (CLI) | payer OTHER, SELFPAY ==
[2019-05-17 14:05] VITALS: BMI 27.5
--- NOTE | 2021-02-09 | COLBX_PTH ---
PATIENT: MICHELINE JOHNSON [facility] U#:[id number] AGE/SX: 59/F ROOM: RE02/09/[address]: Dr. Mick Olsen MD : 1965 BED: DIS: SPEC #: [id number] RECD: 02/09/21 14:57 STATUS: JUAN BARRAZA #: [id number] ALEIDA: 02/09/21 00:[address]: Mick Olsen DEPT: SURGICAL PATHOLOGY RECD BY: Harsh Colon ENTERED: 02/10/21 09:18 SP TYPE: COLON BX OTHR DR: Dr. Kelvin Caldera MD [facility] Tissues: COLON BIOPSY Procedures: Surgery Specimen Level IV HEADER OPERATION: Colonoscopy with biopsy PRE-OP DIAGNOSIS: History rectal CA TISSUE SUBMITTED: Biopsy surgical anastomosis, rule out CA MICROSCOPIC DIAGNOSIS Anastomosis, biopsy: -No evidence of carcinoma -Mild glandular distortion -Mild chronic inflammation AM:cc 02/11/21 MICROSCOPIC DESCRIPTION Slides are reviewed. GROSS DESCRIPTION Received in fixative is one container labeled with the patient's name and designated surgical anastomosis. The specimen consists of multiple irregular fragments of light singh soft tissue that in aggregate measure 1.3 x 0.3 x 0.1 cm. The specimen is totally submitted in one cassette. / SJ:bernadette 02/10/2021 TC:3 CPT: 87180
== END ==
PROVIDERS: PCP Family Medicine; Referring Provider Internal Medicine Gastroenterology; Visit Provider Internal Medicine Gastroenterology
DX: Z85.048 Personal history of other malignant neoplasm of rectum, rectosigmoid junction, and anus (principal)
CPT/HCPCS: 88305

== ENCOUNTER 2021-05-28 13:03 | Outpatient (CLI) | payer OTHER, SELFPAY ==
[2019-05-17 14:05] VITALS: BMI 27.5
--- NOTE | 2021-05-28 13:08 | BD_ITS ---
STUDY: DUAL ENERGY X-RAY ABSORPTIOMETRY / DXA REASON FOR EXAM: Female, 55 years old. SCREENING TECHNIQUE: Bone Mineral Density (BMD) measurements of lumbar spine and bilateral hips were obtained. COMPARISON: None. FINDINGS: Lumbar Spine (L1-L4): g/cm2 (0.588) / T-score (-4.7) / Z-score (-3.4) Findings are suggestive of osteoporosis with a high fracture risk. Left Femur Total: g/cm2 (0.763) / T-score (-1.5) / Z-score (-0.7) Left Femoral Neck: g/cm2 (0.704) / T-score (-1.3) / Z-score (-0.2) Right Femur Total: g/cm2 (0.801) / T-score (-1.2) / Z-score (-0.4) Right Femoral Neck: g/cm2 (0.738) / T-score (-1.0) / Z-score (0.1) BD/Dexa Bone Density Study IMPRESSION: The patient is considered osteoporotic as outlined below according to World Deepak Organization (WHO) criteria with a high fracture risk. Reference Information: The T-score is the number of standard deviations above or below the standard which is normal for young adults at their peak bone mineral density. The World Health Organization (WHO) interprets the T-scores as follows: Above -1 Normal bone density Between -1 and -2.5 Osteopenia Equal to / or below -2.5 Osteoporosis As a practical clinical guideline, osteopenia may be graded as follows: Mild -1 through -1.5 Moderate -1.6 through -2.0 Severe -2.1 through -2.4 The Z-score is the number of standard deviations above or below age-matched controls. A Z-score of less than -1.5 would be considered abnormal. References: 1. NIH Osteoporosis and Related Bone Diseases www osteo.org 2. International Society for Clinical Densitometry www iscd.org 3. National Osteoporosis Foundation www nof.org Electronically Signed: William Jordan MD at 10:05 EST ,
--- NOTE | 2021-05-28 13:36 | CT_ITS ---
EXAM: CT ABDOMEN AND PELVIS WITH INTRAVENOUS CONTRAST CLINICAL INDICATION: MONITOR RECTAL CANCER TECHNIQUE: Helically acquired images were obtained of the abdomen and pelvis with intravenous contrast. This CT exam was performed using one or more of the following dose reduction techniques: automated exposure control, adjustment of the mA and/or kV according to patient size, and/or use of iterative reconstruction technique. This report was created using [employer] report generation technology. CONTRAST: IV 100mL Isovue-300 COMPARISON: 12/01/2020, 03/07/2020. FINDINGS: LOWER THORAX: Hazy groundglass opacities in the lung bases. No cardiomegaly. No significant pericardial effusion. ABDOMEN: LIVER: Unremarkable. Homogeneous. No focal mass. GALLBLADDER AND BILE DUCTS: Moderate stone in the gallbladder. No gallbladder distention or wall edema. No intra- or extrahepatic biliary ductal dilation. PANCREAS: Unremarkable. No focal cystic or solid mass. SPLEEN: Spleen measures 16 cm craniocaudally, mildly enlarged. This is stable to mildly decreased compared to the prior study. ADRENALS: Unremarkable. No nodules. KIDNEYS AND URETERS: Unremarkable. Normal renal size and position. No hydronephrosis. STOMACH AND BOWEL: Prior rectal anastomosis. No stomach or bowel distention. No focal inflammatory change. PELVIS: APPENDIX: No evidence of acute appendicitis. BLADDER: Unremarkable. REPRODUCTIVE: Unremarkable as visualized. No mass. SUBPERITONEAL SPACE: Moderate presacral soft tissue density, stable to mildly decreased compared to the prior study. ABDOMEN and PELVIS: INTRAPERITONEAL SPACE: Unremarkable. No ascites or other fluid collection. No free air. BONES/JOINTS: Chronic fracture of the superior endplate of L5. No significant change from the prior study. Bony structures are otherwise unremarkable. No suspicious lytic or blastic abnormality. SOFT TISSUES: Unremarkable. No discrete abdominal or pelvic wall hernia. VASCULATURE: Unremarkable. Abdominal aorta is normal in caliber. LYMPH NODES: Unremarkable. No enlarged lymph nodes. CT/Abdomen/Pelvis W IV Cont ONLY IMPRESSION: 1. Prior rectal surgery with mild interval improvement in presacral soft tissue. 2. Mild splenomegaly. 3. Cholelithiasis. 4. Chronic L5 endplate fracture. Electronically Signed: Kelly Hough MD at 17:40 EST Reading Location ID and State: [id number] / Tel , Service support ,
[2021-05-28] MEDS: 0.9% Saline Lock 10 ML Syringe IV (14:05)
== END 2021-05-28 23:59 | disposition home or self-care (01) ==
LOC: OPBD 13:05 → CT 13:35
PROVIDERS: PCP Family Medicine; Referring Provider Internal Medicine Medical Oncology; Visit Provider Internal Medicine Medical Oncology
DX: C19 Malignant neoplasm of rectosigmoid junction (principal); Z13.820 Encounter for screening for osteoporosis
CPT/HCPCS: 74177; 77080; Q9967; A4216

== ENCOUNTER → 2021-11-30 | Outpatient (CLI) | payer OTHER, SELFPAY ==
[2019-05-17 14:05] VITALS: BMI 27.5
--- NOTE | 2021-11-30 15:52 | CT_ITS ---
EXAM: CT ABDOMEN AND PELVIS WITHOUT INTRAVENOUS CONTRAST CLINICAL INDICATION: MONITOR COLON CANCER TECHNIQUE: Helically acquired images were obtained of the abdomen and pelvis without intravenous contrast. This CT exam was performed using one or more of the following dose reduction techniques: automated exposure control, adjustment of the mA and/or kV according to patient size, and/or use of iterative reconstruction technique. This report was created using [employer] report generation technology. RADIATION DOSE: CTDIvol = 14.78 mGy, DLP = 740.89 mGy-cmContrast: COMPARISON: Enhanced exam May 28, 2021. FINDINGS: LOWER THORAX: Mild mosaic appearance of the lung bases with small foci of lucency and small foci of slightly more dense normal-appearing lung, but similar to prior exam. No cardiomegaly. No significant pericardial effusion. ABDOMEN: LIVER: Unremarkable. Homogeneous. GALLBLADDER AND BILE DUCTS: Unremarkable. No calcified gallstones. No gallbladder distention or wall edema. No intra- or extrahepatic biliary ductal dilation. PANCREAS: Unremarkable. No focal cystic mass. SPLEEN: Mild splenomegaly, 15.1 cm AP, similar to prior exam. ADRENALS: Unremarkable. No nodules. KIDNEYS AND URETERS: Unremarkable. Normal renal size and position. No hydronephrosis. STOMACH AND BOWEL: See below. PELVIS: APPENDIX: No evidence of acute appendicitis. BLADDER: Mildly thick-walled appearance of the urinary bladder despite mild distention. REPRODUCTIVE: Unremarkable as visualized. No mass. SUBPERITONEAL SPACE: Persistent increased presacral-perirectal soft tissue density and postoperative changes of the rectum. No discrete fluid collection identified. Oral contrast reached most of the distal small bowel. Postoperative changes of small bowel in the right lower quadrant. Moderate stool in most of the proximal 1/2-2/3 of the colon. ABDOMEN and PELVIS: INTRAPERITONEAL SPACE: Unremarkable. No ascites or other fluid collection. No free air. BONES/JOINTS: Similar Schmorl''s node in the upper body of L5. No suspicious lytic or blastic abnormality. SOFT TISSUES: See above. VASCULATURE: Unremarkable. Abdominal aorta is non-dilated. LYMPH NODES: Unremarkable. No enlarged lymph nodes. TUBES, LINES AND DEVICES: Presumed central line tip at the distal SVC, not fully included. Normal heart size. CT/Abdomen/Pelvis without Cont IMPRESSION: No specific acute abnormality. Mildly thick walled urinary bladder but it is incompletely distended. Postoperative changes of the rectum and postoperative change of small bowel in the right abdomen. No evidence of a significant degree of bowel obstruction. Moderate stool in the proximal 1/2-2/3 of the colon. No suspicious fluid collections. Stable mild splenomegaly and bone and lung base changes. Stable subcentimeter retroperitoneal lymph nodes. Electronically Signed: Amanda Blackwell MD at 0:48 EDT ,
== END | disposition home or self-care (01) ==
LOC: CT 15:51
PROVIDERS: PCP Family Medicine; Referring Provider Internal Medicine Medical Oncology; Visit Provider Internal Medicine Medical Oncology
DX: C19 Malignant neoplasm of rectosigmoid junction (principal)
CPT/HCPCS: 74176

== ENCOUNTER → 2022-06-21 | Outpatient (CLI) | payer OTHER, SELFPAY ==
[2019-05-17 14:05] VITALS: BMI 27.5
--- NOTE | 2022-06-21 07:24 | BI_ITS ---
MAMMOGRAPHY - BILATERAL SCREENING REASON FOR EXAM: Female, 56 years old. Routine annual screening examination. PERTINENT HISTORY: Non-contributory. TECHNIQUE: Digital bilateral breast frandy (3D mammographic acquisition) in the CC and MLO projections. 2-D mediolateral oblique (MLO) and craniocaudad (CC) views of both breasts were obtained. CAD: Full Field Digital Mammography with Computer Added Detection was performed. COMPARISON: Comparison is made with prior study dated June 24, 2020. FINDINGS: Breast Composition: There are scattered areas of fibroglandular density. There are no dominant masses or suspicious calcifications. No other significant abnormalities are identified. There has been no significant change since the prior study. BI/SCRN MAMM (CAD)W/FRANDY BILAT IMPRESSION: Stable bilateral screening mammogram. Yearly follow-up mammogram recommended. (A) ASSESSMENT CATEGORY: BIRADS Category 1: Negative. A letter regarding these results will be sent to the patient by the facility within 30 days. Approximately 10% of breast cancers are not detected by mammography. A normal mammogram should not delay biopsy of a clinically suspicious abnormality. [id number] Electronically Signed: William Jordan MD at 9:01 EDT ,
== END | disposition home or self-care (01) ==
LOC: OPBI 07:23
PROVIDERS: PCP Family Medicine; Visit Provider Internal Medicine Medical Oncology
DX: Z12.31 Encounter for screening mammogram for malignant neoplasm of breast (principal); Z85.038 Personal history of other malignant neoplasm of large intestine
CPT/HCPCS: 77063; 77067

== ENCOUNTER → 2022-11-29 | Outpatient (CLI) | payer OTHER, SELFPAY ==
[2019-05-17 14:05] VITALS: BMI 27.5
--- NOTE | 2022-11-29 07:53 | CT_ITS ---
STUDY: CT ABDOMEN AND PELVIS WITH CONTRAST REASON FOR EXAM: Female, 57 years old. MONITOR RECTAL CA RADIATION DOSAGE (If Supplied By Facility): CTDIvol = ( 13.43 ) mGy, DLP = ( 870.56 ) mGycm TECHNIQUE: Transaxial images were obtained from the dome of the diaphragm to the symphysis pubis without oral contrast. ml of 100mL Isovue-300 contrast was administered. Sagittal and coronal images were reconstructed. Individualized dose optimization techniques were used for this CT. COMPARISON: CT of abdomen and pelvis dated November 30, 2021. CT of abdomen and pelvis dated December 01, 2020 FINDINGS: Redemonstration of a mild to moderate amount of presacral/perirectal fibrosis unchanged since the 2020 study. No new masses or lymphadenopathy is present. No visualized masses of the colon or small bowel or stomach. No demonstrated peritoneal or omental carcinomatosis or nodularity. Redemonstration of mild subcentimeter retroperitoneal and central abdominal subcentimeter lymphadenopathy. No visualized primary or metastatic disease to the solid organs. No visualized lytic or blastic lesions of the osseous structures. Mild groundglass edema is present in the visualized lung bases. The visualized portions of the heart are within normal limits. Normal liver. Normal gallbladder and extrahepatic biliary system. Mild splenomegaly at 14.1 cm unchanged from the prior studies. Normal pancreas. Normal bilateral adrenal glands. Normal right kidney. Normal left kidney. Normal visualized stomach. Normal small intestine. Normal colon. The appendix is visualized and appears normal. There is diffuse atherosclerotic calcification of the abdominal aorta, without a demonstrated aneurysm. Normal inferior vena cava. Normal urinary bladder. Unremarkable uterus and adnexa. Redemonstration of fibrosis and partial adhesion of the left inferior aspect of the uterus to the rectum at the rectal anastomotic site. Stable anastomotic site of the distal ileum in the right abdominal region. Normal abdominal wall. There are diffuse degenerative changes of the visualized lumbar spine. Chronic compression deformity of the L5 vertebral body/large Schmorl''s node redemonstrated. CT/Abdomen/Pelvis W IV Cont ONLY IMPRESSION: 1. Redemonstration of a mild to moderate amount of presacral/perirectal fibrosis unchanged since the 2020 study. No new masses or lymphadenopathy is present. No visualized masses of the colon or small bowel or stomach. No demonstrated peritoneal or omental carcinomatosis or nodularity. Redemonstration of mild subcentimeter retroperitoneal and central abdominal subcentimeter lymphadenopathy. No visualized primary or metastatic disease to the solid organs. 2. No visualized lytic or blastic lesions of the osseous structures. 3. Redemonstration of fibrosis and partial adhesion of the left inferior aspect of the uterus to the rectum at the rectal anastomotic site. Stable anastomotic site of the distal ileum in the right abdominal region. Electronically Signed: Spencer Chilel MD at 11:16 EDT ,
[2022-11-29] MEDS: 0.9 % NaCl (Sterile) Posiflush 10 mL IV (08:15)
== END | disposition home or self-care (01) ==
LOC: CT 07:52
PROVIDERS: PCP Family Medicine; Referring Provider Internal Medicine Medical Oncology; Visit Provider Internal Medicine Medical Oncology
DX: C19 Malignant neoplasm of rectosigmoid junction (principal)
CPT/HCPCS: 74177; Q9967; A4216

== ENCOUNTER → 2023-05-16 | Outpatient (CLI) | payer OTHER, SELFPAY ==
[2019-05-17 14:05] VITALS: BMI 27.5
--- NOTE | 2023-05-16 13:57 | CDU_ITS ---
Reason For Study: Visual Disturbances Rt. Velocities/BP Lt. Velocities/BP Prox CCA 101/27 cm/sec. Prox CCA 106/28 cm/sec. Mid CCA 97/19 cm/sec. Mid CCA 84/27 cm/sec. Dist CCA 77/23 cm/sec. Dist CCA 71/19 cm/sec. Prox ICA 50/16 cm/sec. Prox ICA 83/16 cm/sec. Mid ICA 63/22 cm/sec. Mid ICA 83/25 cm/sec. Dist ICA 94/37 cm/sec. Dist ICA 78/28 cm/sec. Rt. ICA/CCA = 1.0. Lt. ICA/CCA = 1.0. Prox ECA 70/14 cm/sec. Prox ECA 78/17 cm/sec. Rt. Vert. 56/15 cm/sec. Lt. Vert. 55/17 cm/sec. Right Extracranial There is intimal thickening but no significant atherosclerotic plaque noted in the right common carotid artery. There is no significant atherosclerotic plaque noted in the right internal carotid artery. There is no significant atherosclerotic plaque noted in the right external carotid artery. Antegrade flow is noted in the right vertebral artery. Left Extracranial There is intimal thickening but no significant atherosclerotic plaque noted in the left common carotid artery. There is intimal thickening but no significant atherosclerotic plaque noted in the left internal carotid artery. There is no significant atherosclerotic plaque noted in the left external carotid artery. Antegrade flow is noted in the left vertebral artery. VL/Carotid Duplex Ultrasound Interpretation Summary No plaque at the right internal carotid artery with less than 50% stenosis Less than 50% stenosis right external carotid artery Intimal thickening at the proximal left internal carotid artery with less than 50% stenosis Less than 50% stenosis left external carotid artery Patent antegrade vertebral arteries bilaterally Ordering Physician: Russell Blount Referring Physician: Kelvin Caldera Performed By: Katerine Madison, RDCS, RVT
--- OUTSIDE RECORDS SUMMARY | 2023-05-16 22:27 | XMS RPT_ITS | CCD ---
Author Name Unknown Address [address] [place] [address] Organization [facility] Results Test Name Value Interpretation Reference Range Facil ity Summary Purpose Family History No Family History Records FoundNo Family History Records FoundNo Family History Records Found Advance Directives No Advanced Directives Records FoundNo Advanced Directives Records FoundNo Advanced Directives Records Found Additional Source Comments INFORMATION SOURCE (unrecogn ized section and content) DATE CREATED AUTHOR AUTHOR'S ORGANIZ ATION 10/23/2019 [facility] ([place]) DATE CREATED AUTHOR AUTHOR'S ORGANIZ ATION 04/15/2021 [facility] FOR RECORDS PERTAINING TO PATIENTS WHO ARE OR HAVE BEEN ENROLLED IN A CHEMICAL DEPENDENCY/SUBSTANCEABUSE PROGRAM, SOME INFORMATION MAY BE OMITTED. This clinical summary was aggregated from multiple sources. Caution should be exercised in using it in the provision of clinical care. This summary normalizes information from multiple sources, and as a consequence, information in this document may materially change the coding, format and clinical context of patient data. In addition, data may be omitted in some cases. CLINICAL DECISIONS SHOULD BE BASED ON THE PRIMARY CLINICAL RECORDS. [facility]. provides no warranty or guarantee of the accuracy or completeness of information in this document.
== END | disposition home or self-care (01) ==
PROVIDERS: PCP Family Medicine; Referring Provider Ophthalmology; Visit Provider Ophthalmology
DX: H53.10 Unspecified subjective visual disturbances (principal)
CPT/HCPCS: 93880

== ENCOUNTER → 2023-06-03 | Outpatient (CLI) | payer OTHER, SELFPAY ==
[2019-05-17 14:05] VITALS: BMI 27.5
--- NOTE | 2023-06-03 07:46 | CT_ITS ---
STUDY: CT ABDOMEN AND PELVIS WITH CONTRAST REASON FOR EXAM: Female, 57 years old. HX OF COLON CA RADIATION DOSAGE (If Supplied By Facility): CTDIvol = ( 18.68 ) mGy, DLP = ( 1086.54 ) mGycm TECHNIQUE: Transaxial images were obtained from the dome of the diaphragm to the symphysis pubis without oral contrast. IV 100mL Isovue-300 was administered. Sagittal and coronal images were reconstructed. Individualized dose optimization techniques were used for this CT. COMPARISON: 11/29/2022 FINDINGS: The visualized lung bases are unremarkable. The visualized portions of the heart are within normal limits. Innumerable tiny lesions of decreased attenuation throughout the liver worrisome for metastatic disease. Normal gallbladder and extrahepatic biliary system. There is moderate splenomegaly. Normal pancreas. Normal bilateral adrenal glands. Normal right kidney. Normal left kidney. Normal visualized stomach. Normal small intestine. Postsurgical changes to the rectosigmoid junction with stranding of the fat in the presacral space possibly from radiation therapy. Furthermore, there is some fluid and gas within the presacral scarring which is unchanged. The appendix is visualized and appears normal. Normal abdominal aorta. Normal inferior vena cava. Normal retroperitoneum. Normal urinary bladder. Normal abdominal wall. Mild levoscoliosis lumbar spine with degenerative disc disease. No change in the chronic mild wedge compression fracture of L5 with concavity the superior endplate. CT/Abdomen/Pelvis W IV Cont ONLY IMPRESSION: 1. No change in the postsurgical and radiation therapy changes of the rectum with scarring, fluid, and gas in the presacral space. 2. Suspect innumerable tiny hepatic metastases. Electronically Signed: Hunter Sanchez MD at 23:20 EDT ,
--- OUTSIDE RECORDS SUMMARY | 2023-06-03 07:48 | XMS RPT_ITS | CCD ---
Author Name Unknown Address [address] [place] [address] Organization [facility] Results Test Name Value Interpretation Reference Range Facil ity Summary Purpose Family History No Family History Records FoundNo Family History Records FoundNo Family History Records Found Advance Directives No Advanced Directives Records FoundNo Advanced Directives Records FoundNo Advanced Directives Records Found Additional Source Comments INFORMATION SOURCE (unrecogn ized section and content) DATE CREATED AUTHOR AUTHOR'S ORGANIZ ATION 10/23/2019 [facility] ([place]) DATE CREATED AUTHOR AUTHOR'S ORGANIZ ATION 04/15/2021 [facility] FOR RECORDS PERTAINING TO PATIENTS WHO ARE [...] BE BASED ON THE PRIMARY CLINICAL RECORDS. [facility]. provides no warranty or guarantee of the accuracy or completeness of information in this document.
[2023-06-03] MEDS: 0.9% Saline Lock 10 ML Syringe IV (08:02)
== END | disposition home or self-care (01) ==
PROVIDERS: PCP Family Medicine; Referring Provider Internal Medicine Medical Oncology; Visit Provider Internal Medicine Medical Oncology
DX: Z85.038 Personal history of other malignant neoplasm of large intestine (principal)
CPT/HCPCS: 74177; Q9967; A4216

== ENCOUNTER → 2023-08-29 | Outpatient (CLI) | payer OTHER, SELFPAY ==
[2019-05-17 14:05] VITALS: BMI 27.5
--- NOTE | 2023-08-29 14:21 | CT_ITS ---
STUDY: CT ABDOMEN AND PELVIS WITH CONTRAST REASON FOR EXAM: Female, 58 years old. MONITOR COLON CA. Status post partial colectomy with radiation and chemotherapy. RADIATION DOSAGE (If Supplied By Facility): CTDIvol = ( 12.57 ) mGy, DLP = ( 916.14 ) mGycm TECHNIQUE: Transaxial images were obtained from the dome of the diaphragm to the symphysis pubis without oral contrast. IV 100mL Isovue-300 was administered. Sagittal and coronal images were reconstructed. Individualized dose optimization techniques were used for this CT. COMPARISON: Comparison is made with prior study dated June 03, 2023. FINDINGS: The visualized lung bases are unremarkable. Coronary artery calcification. There is decreased attenuation of the liver consistent with steatosis. Once again, there are multiple tiny hypodense lesions scattered throughout the right and left lobes of the liver. These are not typical cysts. Metastatic deposits should be ruled out. Hepatomegaly. Normal gallbladder and extrahepatic biliary system. There is mild splenomegaly. Normal pancreas. Normal bilateral adrenal glands. Normal right kidney. Normal left kidney. Normal visualized stomach. Surgical sutures are also seen in the distal small bowel. Surgical suture line is seen in the region of the rectum. Stable appearance of the soft tissues within the posterior pelvis and presacral region. The appendix is visualized and appears normal. There is scattered atherosclerotic calcification of the abdominal aorta, without a demonstrated aneurysm. Normal inferior vena cava. Normal retroperitoneum. Diffuse bladder wall thickening. Normal abdominal wall. There are degenerative changes of the visualized lumbar spine. Stable loss of height of the superior endplate of the L5 vertebrae.
[2023-08-29] MEDS: 0.9% Saline Lock 10 ML Syringe IV (14:54)
== END | disposition home or self-care (01) ==
PROVIDERS: PCP Family Medicine; Visit Provider Internal Medicine Medical Oncology
DX: C19 Malignant neoplasm of rectosigmoid junction (principal)
CPT/HCPCS: 74177; A4216

== ENCOUNTER → 2023-10-27 | Outpatient (CLI) | payer OTHER, SELFPAY ==
[2019-05-17 14:05] VITALS: BMI 27.5
--- NOTE | 2023-10-27 10:11 | MRI_ITS ---
MRI Abdomen w/ and w/out contrast 10/27/2023 10:40 AM COMPARISON: CT 08/29/2023 CLINICAL HISTORY: RECTAL CA- LIVER LESIONS, F/U TO CT SCAN TECHNIQUE: Multiplanar T1 and T2 weighted, diffusion and dynamic post-gadolinium images were obtained through the abdomen before and after administration of 17 cc of IV clariscan. FINDINGS: Liver: Innumerable tiny T1 isointense/T2 hyperintense lesions throughout the liver. There is no definite enhancement on postcontrast images. There is drop in signal on opposed phase T1 images compared to in phase T1 images consistent with microscopic fat. Gallbladder: Unremarkable Pancreas: Unremarkable Spleen: Mildly enlarged. Adrenal Glands: Unremarkable Kidneys: Unremarkable GI Tract: Unremarkable Lymphadenopathy: Absent Ascites: Absent Bones: No suspicious lesions MRI/MRI Abd WITH and W/O Contrast IMPRESSION: Innumerable tiny T1 isointense/T2 hyperintense nonenhancing lesions throughout the liver containing microscopic fat. Differential includes focal fatty infiltrations versus metastatic disease. Recommend additional follow-up multiphase MR abdomen w/ and w/out Eovist contrast. Electronically Signed: Troy Chaudhry MD at 20:39 EDT ,
[2023-10-27] MEDS: 0.9% Saline Lock 10 ML Syringe IV ×2 (10:30→11:15)
== END | disposition home or self-care (01) ==
PROVIDERS: PCP Family Medicine; Referring Provider Internal Medicine Medical Oncology; Visit Provider Internal Medicine Medical Oncology
DX: C19 Malignant neoplasm of rectosigmoid junction (principal)
CPT/HCPCS: 74183; A9575; A4216

== ENCOUNTER → 2023-11-10 | Outpatient (CLI) | payer OTHER, SELFPAY ==
[2019-05-17 14:05] VITALS: BMI 27.5
[2023-11-10] VITALS (14 sets, daily range): BP systolic 128–160; BP diastolic 45–85; PULSE 62–76; RESP 10–18; TEMP 36; O2SAT 88–98; BMI 29.0
[2023-11-10] MEDS: 0.9% Normal Saline (250mL Bag) 250 ML 15 ML IV (08:41)
[2023-11-10] MEDS: Midazolam 2 MG/2 ML Syringe IV (09:09)
[2023-11-10] MEDS: fentaNYL 100 MCG/2 ML Ampul IV ×2 (09:12→09:29)
[2023-11-10] MEDS: Lidocaine 2% (20 ml mdv) 20 ML Vial INFILT (09:27)
--- NOTE | 2023-11-10 09:30 | LIVB_PTH ---
PATIENT: MICHELINE JOHNSON LOC: [place] U#:[id number] AGE/SX: 58/F ROOM: RE11/10/[address]: Dr. Rudy Avila MD : 1965 BED: DIS: 11/10/2023 SPEC #: [id number] RECD: 11/10/23 09:43 STATUS: JUAN MADI #: [id number] ALEIDA: 11/10/23 09:[address]: Rudy Avila DEPT: SURGICAL PATHOLOGY RECD BY: Kaykay Garcia ENTERED: 11/10/23 11:20 SP TYPE: LIVER BX OT DR: Dr. Percy Lott DO Tissues: Liver, NOS Procedures: PAS with Diastase (control) Trichrome (control) Special Stain Group I PAS Stain (control) Surgery Specimen Level V Retic (control) Iron Stain (control) HEADER OPERATION: CT guided liver biopsy PRE-OP DIAGNOSIS: Liver lesions TISSUE SUBMITTED: 18 gauge x3 cores MICROSCOPIC DIAGNOSIS Liver lesion, CT guided core biopsy: Liver parenchymal tissue, negative for malignancy. Extensive macro- and microvesicular steatosis. See microscopic description and comment. SJ/mr 11/11/2023 COMMENT Correlation with clinical, radiologic and laboratory findings and appropriate follow up are necessary. Repeat biopsy is suggested, if clinically indicated. Case has been reviewed in consultation with Dr. Palumbo who concurs with the above diagnosis. IDC:AM MICROSCOPIC DESCRIPTION Slides are reviewed. The specimen shows liver parenchymal tissue with preserved lobular architecture. Negative for metastatic malignancy. Hepatocytes show extensive macro- and microvesicular steatosis. lobular inflammation is not seen. Portal area shows mild chronic inflammation. Interface inflammation is not seen. Iron stain shows 3+ iron in the hepatocytes. Reticulin stain show preserved lobular architecture. Trichrome stain shows focal increased portal fibrosis. Periportal or bridging fibrosis is not seen. PAS stain with and without diastase do not show any abnormal accumulation of protein. All stains are performed with appropriate matched controls. GROSS DESCRIPTION Received in fixative is one container labeled with the patient's name and designated Liver biopsy. The specimen consists of three elongated fragments of singh soft tissue measuring in aggregate 1.5 x 0.3 x 0.1cm. The entire specimen is submitted in one cassette. SJ.mr 11/10/2023 TC:5 CPT:85646,86722b3
--- NOTE | 2023-11-10 09:47 | PCM.OP.PRO ---
Procedure Report Date of Procedure: 11/10/23 Assessment & Plan Assessment/Plan (1) Liver lesion: PLAN: PROCEDURE: CT DIRECTED CORE LIVER BIOPSY ORDERING PROVIDER: Dr. Avila INDICATION: Female, 58 years old. Innumerable nonenhancing liver lesions on recent MRI. History of rectosigmoid cancer and sarcoidosis. PROVIDER: TESSA Watt CONSENT: Written informed consent was obtained having explained the risks, benefits and alternatives in detail with the patient who accepted the risks and agreed to proceed. Laboratory review and clinical assessment was performed. PRE-PROCEDURE SEDATION ASSESSMENT: Current history and physical dictated by referring provider and reviewed. No clinical changes since date of exam. Patient has a Mallampati Score of Class 1 and ASA Class of 2. PROCEDURAL SEDATION PROTOCOL: The Drugs used were: 2 mg Versed, IV, and 50 mcg Fentanyl, IV. The sedation time was: 25 minutes, starting at 9:09 AM and terminated at 9:34 AM. The procedural sedation protocol was independently monitored by the department nurse. RADIATION DOSAGE (If Supplied By Facility): CTDIvol = 24.87 mGy, DLP = 717.44 mGycm Individualized dose optimization techniques were used for this CT. TECHNIQUE: The patient was placed in a supine position. Using CT image guidance with image documentation, a suitable location in the right lobe of the liver was identified. The skin surface was prepped with betadine and draped in a sterile fashion. 2% lidocaine was used for local anesthesia. Using an anterior approach, puncture of the liver was uneventful with an 18-gauge core needle system. 3, 18-gauge core samples were obtained, and submitted in formalin to the pathologist for further assessment. The needle was removed. An occlusive sterile dressing was applied. Patient tolerated the procedure well, and returned to the holding bay for nursing monitoring. IMPRESSION: 1. CT directed core needle biopsy of the liver, using CT image guidance with image documentation as described. 2. Procedural Sedation protocol utilized with independent monitoring. Procedures Radiology Radiology CT Procedures: 88882 Biopsy Liver Multi Select Codes Radiology Radiology CT Procedures: [id number] CT guidance parenchymal tissue
== END | disposition home or self-care (01) ==
LOC: CT 08:02
PROVIDERS: Referring Provider Internal Medicine Medical Oncology; Visit Provider Internal Medicine Medical Oncology
DX: K76.9 Liver disease, unspecified (principal)
CPT/HCPCS: 47000; 77012; 88307; 88312; 99156; J7050; A4216

== ENCOUNTER → 2025-02-06 | Outpatient (CLI) | payer OTHER, SELFPAY ==
[2019-05-17 14:05] VITALS: BMI 27.5
--- NOTE | 2025-02-06 09:23 | US_ITS ---
PROCEDURE: ABD LIMITED W/ ELASTOGRAPHY REASON FOR EXAM: FATTY LIVER COMPARISON: None. TECHNIQUE: Procedure Code: [id number] Modality: US Procedure: ABD LIMITED W/ ELASTOGRAPHY Right upper quadrant abdominal ultrasound. Nette ElastQ Imaging shear wave elastography for non-invasive assessment of liver tissue stiffness. Nette EPIQ Elite. FINDINGS: LIVER: Size: Enlarged (hepatomegaly) Length: 18.2 cm Echotexture: Diffusely echogenic suggesting fatty infiltration. There are multiple echogenic nodules scattered throughout the liver. The largest measures 1 cm x 1.3 cm 0.8 cm. Metastatic deposit should be ruled out. Contour: Normal Elastography: EQI Med: 7.4 kPa EQI Med Dann: 1.56 m/s IQR/Med: 7.8 %* GALLBLADDER: Solitary gallstone measuring 2.4 cm 2 cm 1.2 cm. COMMON BILE DUCT: Normal measuring 3.9 mm . PANCREAS: Normal Visualized portions of the right kidney are unremarkable except for a 8 mm x 8 mm x 2 mm nonobstructive right intrarenal calculus.. No right upper quadrant ascites. US/ABD Limited w/ Elastography IMPRESSION: Moderate degree of hepatic fibrosis. Hepatomegaly and fatty infiltration of the liver. Multiple echogenic nodules scattered throughout the liver as described. Metast atic deposit should be ruled out. Solitary gallstone. Reference Values: SRU <1.37 m/s (5.7kPa): No to mild fibrosis 1.37 m/s - 2.2 m/s: Moderate to severe fibrosis >2.2 m/s (15kPa): Significant fibrosis / cirrhosis METAVIR Score F2 or higher: 1.34 m/s (5.7kPa) F3 or higher: 1.55 m/s (7.3kPa) F4: 1.80 m/s (10kPa) * If the IQR/Med is >30%, the variance in the measurements is a large and the a ccuracy of the measurement may be in question. Reading Location: [facility]
--- OUTSIDE RECORDS SUMMARY | 2025-02-06 10:31 | XMS RPT_ITS | CCD ---
Author Organization [facility] ion Partnership [facility] Care Team Providers Care Operator Electronic Warfare Name Role Phone Dr. Reynaldo Caldera Primary Care Provider Dr. Reynaldo Caldera Referring Provider [phone] Dr. Anibal Moreno Attending Provider [phone] Reynaldo Caldera Primary Care Provider Dr. Reynaldo Caldera Referring Provider 1[facility])[id number] Dr. Rudy Avila Attending Provider [phone] Reynaldo Caldera Primary Care Provider Dr. Bob Velazquez Attending Provider [phone] Dr. Reynaldo Caldera Primary Care Provider Dr. Bob Velazquez Attending Provider [phone] Dr. Russell Blount Referring Provider [phone] LEILA RODRIGUEZ Attending Unavailable LEILA RODRIGUEZ Referring Unavailable REYNALDO CALDERA Primary Care Unavailable Rudy Avila Attending Unavailable Percy Lott Primary Care Unavailable Percy Lott Referring Unavailable Rudy Avila Attending Unavailable Reynaldo Caldera Primary Care Unavailable Jean-Paul Murguia Referring Unavailable Allergies Allergy Classification Reported Allergen(s) Allergy Type Date of Onset Reaction(s) Facility (5 sources) Sulfonamides (Antibiotic) Allergy to substance 2 [facility] (5 sources) Triiodobenzoic Acids Propensity to adverse reactions 2 [facility] (1 source) Sulfonamides (Antibiotic) Drug allergy (disorder) 5 [facility] (1 source) Iodinated Contrast Media Drug allergy (disorder) 5 [facility] Medications Current Medications Medication Drug Class(es) Dates Sig (Normalized) Sig (Original) [id number] 200 actuat albuterol 0.09 mg/actuat metered dose inhaler (5 sources) beta2-Adrenergic Agonist Start: 06-02-2020 take 1 puff(s) by inhalation every four hours Albuterol Sulfate (Ventolin Hfa) 90 mcg/actuation HFA aerosol inhaler Active 2 PUFF INHALATION Q4H June 02, 2020 12:00am cetirizine hydrochloride 10 mg oral tablet (5 sources) Histamine-1 Receptor Antagonist Start: 08-19-2019 take 10 mg by mouth once daily Cetirizine Active 10 MG PO DAILY August 19, 2019 12:00am 1 ml denosumab 60 mg/ml prefilled syringe (5 sources) RANK Ligand Inhibitor Start: 10-22-2021 Denosumab (Prolia) 60 mg/mL syringe Active 60 MG SC every 6 months October 22, 2021 12:00am lidocaine 25 mg/ml / prilocaine 25 mg/ml topical cream (5 sources) Antiarrhythmic, Amide Local Anesthetic Start: 06-07-2019 Lidocaine-Priloca ine Active 1 APPLICATIO TP DAILY NEEDED 04 19June 07, 2019 3:50pm Trovasto-Hbw-Rokp-Fa -Lutein (2 sources) Start: 12-11-2019 take 1 tablet by mouth once daily Ofiuwhms-Nmv-Miri -Fa-Lutein Active 1 TABLET PO DAILY December 11, 2019 12:00am Drisngio-Pwj-Dddm-Fa -Vit K-Lut (3 sources) Start: 12-11-2019 take 1 tablet by mouth once daily Soqiujuh-Onf-Xlrx -Fa-Vit K-Lut Active 1 TABLET PO DAILY December 10, 2019 11:00pm Start: 12-11-2019 take 1 tablet by mariangel th once daily Jnmarjel-Ycy-Gern-Fa-Vit K-Lut Active 1 TABLET PO DAILY December 11, 2019 12:00am ondansetron 8 mg disintegrating oral tablet (5 sources) Serotonin-3 Receptor Antagonist Start: 06-07-2019 take 8 mg by mouth every eight hours as needed Ondansetron Active 8 MG PO EVERY 8 HOURS NEEDED 17 01June 07, 2019 12:00am Completed/Discontinued Medications Medication Drug Class(es) Dates Sig (Normalized) Sig (Original) acetaminophen 325 mg / oxyCODONE hydrochloride 5 mg oral tablet (5 sources) Opioid Agonist Start: 06-11-2019 End: 06-17-2019 take 1 tablet by mouth every four hours as needed Oxycodone-Acetamino phen Discontinued 1 - 2 TABLET PO EVERY 4 HOURS NEEDED 17 09June 11, 2019 June 17, 2019 12:07am calcium polycarbophil 625 mg oral tablet (5 sources) Start: 02-22-2020 End: 12-04-2020 take 625 mg by mouth twice daily Calcium Polycarbophil Discontinued 625 MG PO TWICE A DAY February 22, 2020 1:00am December 04, 2020 2:07pm dexamethasone 4 mg oral tablet (5 sources) Corticosteroid Start: 12-24-2019 End: 12-31-2019 take 4 mg by mouth once daily Dexamethasone Discontinued 4 MG PO DAILY 7 December 24, 2019 12:00am December 31, 2019 12:02am loperamide hydrochloride 2 mg oral capsule (5 sources) Opioid Agonist Start: 02-22-2020 End: 12-04-2020 take 2 mg by mouth twice daily Loperamide Discontinued 2 MG PO TWICE A DAY February 22, 2020 1:00am December 04, 2020 2:07pm predniSONE 10 mg oral tablet (15 sources) Start: 08-26-2020 End: 10-08-2020 take 2 tablets by mouth once daily, then take 1 tablet by mouth once daily Prednisone Discontinued 0 PO DAILY August 26, 2020 12:00am October 08, 2020 6:43am Take 2 tabs PO daily x 14 days, then take 1 tab PO daily x 14 days Start: 07-17-2020 End: 10-08-2020 take 60 mg by mouth once daily at mealtime Prednisone Discontinued 60 MG PO daily July 17, 2020 12:00am October 08, 2020 6:43am administer with food or milk Start: 06-02-2020 End: 07-03-2020 take 60 mg by mouth once daily at mealtime Prednisone Discontinued 60 MG PO daily June 02, 2020 12:00am July 03, 2020 1:16pm administer with food or milk Problems Problem Classification Problem Date Documented Da te Episodic/Chronic Administrative/social admission (15 sources) Patient encounter status; Translations: [Counseling, unspecified] Episodic Cancer of rectum and anus (13 sources) Malignant tumor of rectosigmoid junction; Translations: [Malignant neoplasm of rectosigmoid junction] Onset: 0 Chronic Coagulation and hemorrhagic disorders (10 sources) Thrombocytopenia due to drugs; Translations: [Other secondary thrombocytopenia] Episodic Complications of surgical procedures or medical care (10 sources) Anemia due to antineoplastic chemotherapy; Translations: [Anemia due to antineoplastic chemotherapy] Chronic Deficiency and other anemia (9 sources) Anemia; Translations: [Anemia, unspecified] 12-24-2019 Episodic Deficiency and other anemia (10 sources) Iron deficiency anemia; Translations: [Iron deficiency anemia, unspecified] 08-19-2019 Episodic Deficiency and other anemia (7 sources) Anemia, unspecified; Translations: [Anemia, unspecified] Onset: 5 Episodic Deficiency and other anemia (5 sources) Iron deficiency anemia, unspecified; Translations: [Iron deficiency anemia, unspecified] Episodic Diseases of white blood cells (10 sources) Neutropenia due to and following chemotherapy; 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 Fever of unknown origin (15 sources) Fever; Translations: [Fever, unspecified] Episodic Immunity disorders (20 sources) Pulmonary sarcoidosis; Translations: [Sarcoidosis of lung] Chronic Lymphadenitis (10 sources) Generalized enlarged lymph nodes; Translations: [Generalized enlarged lymph nodes] Episodic Maintenance chemotherapy; radiotherapy (10 sources) Patient encounter status; Translations: [Encounter for antineoplastic chemotherapy] Chronic Nutritional deficiencies (10 sources) Iron deficiency; Translations: [Iron deficiency] Episodic Osteoporosis (7 sources) Osteoporosis; Translations: [Age-related osteoporosis without current pathological fracture] Onset: 5 12-14-2021 Chronic Other aftercare (1 source) Encounter for adjustment and management of vascular access device; Translations: [Encounter for adjustment and management of vascular access device] Onset: 5 Episodic Other aftercare (1 source) Other termite control servicer (current) drug therapy; Translations: [Other senior living (current) drug therapy] Onset: 5 Episodic Other gastrointestinal disorders (5 sources) Diarrhea; Translations: [Diarrhea, unspecified] 12-11-2019 Episodic Other gastrointestinal disorders (5 sources) Diarrhea due to drug; Translations: [Toxic gastroenteritis and colitis] 12-11-2019 Episodic Other gastrointestinal disorders (5 sources) Diarrhea, unspecified; Translations: [Diarrhea] Episodic Other gastrointestinal disorders (5 sources) Toxic gastroenteritis and colitis; Translations: [Diarrhea] Episodic Other lower respiratory disease (5 sources) Hypoxemia; Translations: [Hypoxemia] 08-26-2020 Episodic Other lower respiratory disease (10 sources) Cough; Translations: [Cough] Episodic Other screening for suspected conditions (not mental disorders or infectious disease) (5 sources) D-dimer above reference range; Translations: [Other specified abnormal findings of blood chemistry] 07-03-2020 Episodic Other upper respiratory disease (5 sources) Seasonal allergy; Translations: [Other seasonal allergic rhinitis] 08-19-2019 Chronic Other upper respiratory disease (5 sources) Other seasonal allergic rhinitis; Translations: [Allergic rhinitis, cause unspecified] Chronic Respiratory failure; insufficiency; arrest (adult) (5 sources) Hypoxemic respiratory failure; Translations: [Respiratory failure, unspecified with hypoxia] 07-17-2020 Episodic Results Test Name Value Interpretation Reference Range Facility Miscellaneous Lab Procedureo n 01-08-2025 [facility] TEST Normal [facility] Comment on above: Order Comment: DIREC T SEND OUT DIRECT SEND OUT Result Comment: Sent directly to testing facility per ordering physician. Performed By: #### L 801.1541 #### [facility] [address] [place], [place], [address] Carcinoembryonic Antigenon 0 07-06-2024 CEA 3.2 ng/mL Normal 0.0-4.7 [facility] Comment on above: Result Comment: Nons mokers <3.9 Smokers <5.6 [facility] Electrochemiluminescence Immunoassay (ECLIA) Values obtained with different assay methods or kits cannot be used interchangeably. Results cannot be interpreted as absolute evidence of the presence or absence of malignant disease. Performed at: [address] [id number] [employer] Classifier: Mick Juan PhD, Phone: [phone] Performed By: #### L 504.2610, L3100.2300, L500.4050, L100.0100, L101.9900, L501.6710 #### [facility] [address] [place], [address] Basic Metabolic Profile (BMP )on 07-05-2024 BUN Normal 4-19 [facility] Comment on above: Result Comment: C151 CMP WAS ORDERED ALSO, CANCELED BMP Performed By: #### L 500.2500 #### [facility] [address] [place], [address] BUN/CRE Normal 10-20 [facility] Comment on above: Result Comment: C151 CMP WAS ORDERED ALSO, CANCELED BMP Performed By: #### L 500.2500 #### [facility] [address] [place], [address] Calcium Normal 7.6-11.0 [facility] Comment on above: Result Comment: C151 CMP WAS ORDERED ALSO, CANCELED BMP Performed By: #### L 500.2500 #### [facility] [address] [place], [address] CL Normal 98-108 [facility] Comment on above: Result Comment: C151 CMP WAS ORDERED ALSO, CANCELED BMP Performed By: #### L 500.2500 #### [facility] [address] [place], [address] CO2 Normal 21.0-32.0 [facility] Comment on above: Result Comment: C151 CMP WAS ORDERED ALSO, CANCELED BMP Performed By: #### L 500.2500 #### [facility] [address] [place], [address] CREAT,SERUM Normal 0.70-1.20 [facility] Comment on above: Result Comment: C151 CMP WAS ORDERED ALSO, CANCELED BMP Performed By: #### L 500.2500 #### [facility] [address] [place], [address] eGFR Normal >60 [facility] Comment on above: Result Comment: C151 CMP WAS ORDERED ALSO, CANCELED BMP Performed By: #### L 500.2500 #### [facility] [address] [place], [address] GAP Normal 5-15 [facility] Comment on above: Result Comment: C151 CMP WAS ORDERED ALSO, CANCELED BMP Performed By: #### L 500.2500 #### [facility] [address] [place], [address] GLU Normal 70-99 [facility] Comment on above: Result Comment: C151 CMP WAS ORDERED ALSO, CANCELED BMP Performed By: #### L 500.2500 #### [facility] [address] [place], [address] Potassium Normal 3.3-5.1 [facility] Comment on above: Result Comment: C151 CMP WAS ORDERED ALSO, CANCELED BMP Performed By: #### L 500.2500 #### [facility] [address] [place], [address] Basic Metabolic Profile (BMP) Normal 133-145 [facility] Comment on above: Result Comment: C151 CMP WAS ORDERED ALSO, CANCELED BMP Performed By: #### L 500.2500 #### [facility] [address] [place], [address] CBC W/Diff, Automatedon 06-19 Absolute Lymph 0.61 X10 3/uL Low 0.83-4.51 [facility] Comment on above: Performed By: #### L 504.2610, L3100.2300, L500.4050, L100.0100, L101.9900, L501.6710 #### [facility] [address] [place], [address] Absolute Neut 2.6 X10 3/uL Normal 2.0-7.7 [facility] Comment on above: Performed By: #### L 504.2610, L3100.2300, L500.4050, L100.0100, L101.9900, L501.6710 #### [facility] [address] [place], [address] Basophils/100 WBC (Bld) 0.3 % Normal 0-1 [facility] Comment on above: Performed By: #### L 504.2610, L3100.2300, L500.4050, L100.0100, L101.9900, L501.6710 #### [facility] [address] [place], [address] Eosinophils/100 WBC (Bld) 2.5 % Normal 0-5 [facility] Comment on above: Performed By: #### L 504.2610, L3100.2300, L500.4050, L100.0100, L101.9900, L501.6710 #### [facility] [address] [place], [address] Erythrocyte distribution width (RBC) [Ratio] 13.8 % Normal 11.6-14.6 [facility] Comment on above: Performed By: #### L 504.2610, L3100.2300, L500.4050, L100.0100, L101.9900, L501.6710 #### [facility] [address] [place], [address] Hematocrit (Bld) [Volume fraction] 35.2 % Low 37-47 [facility] Comment on above: Performed By: #### L 504.2610, L3100.2300, L500.4050, L100.0100, L101.9900, L501.6710 #### [facility] [address] [place], [address] Hemoglobin (Bld) [Mass/Vol] 11.7 g/dL Low 12.0-15.0 [facility] Comment on above: Performed By: #### L 504.2610, L3100.2300, L500.4050, L100.0100, L101.9900, L501.6710 #### [facility] [address] [place], [address] IG% 0.600 Normal 0.0-0.9 [facility] Comment on above: Result Comment: IG% - Immature Granulocytes (promyelocytes, myelocytes and metamyelocytes) > 1% indicates that a LEFT SHIFT is Present. Performed By: #### L 504.2610, L3100.2300, L500.4050, L100.0100, L101.9900, L501.6710 #### [facility] [address] [place], [address] Lymphocytes/100 WBC (Bld) 16.9 % Low 19-41 [facility] Comment on above: Performed By: #### L 504.2610, L3100.2300, L500.4050, L100.0100, L101.9900, L501.6710 #### [facility] [address] [place], [address] MCH (RBC) [Entitic mass] 28.5 pg Normal 27.0-32.0 [facility] Comment on above: Performed By: #### L 504.2610, L3100.2300, L500.4050, L100.0100, L101.9900, L501.6710 #### [facility] [address] [place], [address] MCHC (RBC) [Mass/Vol] 33.2 g/dL Normal 32-36 [facility] Comment on above: Performed By: #### L 504.2610, L3100.2300, L500.4050, L100.0100, L101.9900, L501.6710 #### [facility] [address] [place], [address] MCV (RBC) [Entitic vol] 85.6 fL Normal 81-99 [facility] Comment on above: Performed By: #### L 504.2610, L3100.2300, L500.4050, L100.0100, L101.9900, L501.6710 #### [facility] [address] [place], [address] Monocytes/100 WBC (Bld) 7.2 % Normal 0-10 [facility] Comment on above: Performed By: #### L 504.2610, L3100.2300, L500.4050, L100.0100, L101.9900, L501.6710 #### [facility] [address] [place], [address] Neutrophils/100 WBC (Bld) 72.5 % High 47-70 [facility] Comment on above: Performed By: #### L 504.2610, L3100.2300, L500.4050, L100.0100, L101.9900, L501.6710 #### [facility] [address] [place], [address] Nucleated RBC (Bld) [#/Vol] 0 10*3/uL Normal 0-5 [facility] Comment on above: Performed By: #### L 504.2610, L3100.2300, L500.4050, L100.0100, L101.9900, L501.6710 #### [facility] [address] [place], [address] Platelet mean volume (Bld) [Entitic vol] 10.3 fL Normal 6.2-12.0 [facility] Comment on above: Performed By: #### L 504.2610, L3100.2300, L500.4050, L100.0100, L101.9900, L501.6710 #### [facility] [address] [place], [address] Platelets (Bld) [#/Vol] 150 10*3/uL Normal 150-450 [facility] Comment on above: Performed By: #### L 504.2610, L3100.2300, L500.4050, L100.0100, L101.9900, L501.6710 #### [facility] [address] [place], [address] RBC (Bld) [#/Vol] 4.11 10*6/uL Low 4.2-5.[address] [facility] Comment on above: Performed By: #### L 504.2610, L3100.2300, L500.4050, L100.0100, L101.9900, L501.6710 #### [facility] [address] [place], [address] RDW SD 43.3 fl Normal 35.1-43.9 [facility] Comment on above: Performed By: #### L 504.2610, L3100.2300, L500.4050, L100.0100, L101.9900, L501.6710 #### [facility] [address] [place], [address] WBC (Bld) [#/Vol] 3.6 10*3/uL Low 4.4-11.0 [facility] Comment on above: Performed By: #### L 504.2610, L3100.2300, L500.4050, L100.0100, L101.9900, L501.6710 #### [facility] [address] [place], [address] CRPon 07-05-2024 C-REACTIVE PROT 29.50 mg/L High 0.0-3.0 [facility] Comment on above: Performed By: #### L 504.2610, L3100.2300, L500.4050, L100.0100, L101.9900, L501.6710 #### [facility] [address] [place], [address] Comprehensive Metabolic Prof ilon 07-05-2024 Albumin [Mass/Vol] 3.9 g/dL Normal 3.5-5.0 [facility] Comment on above: Performed By: #### L 504.2610, L3100.2300, L500.4050, L100.0100, L101.9900, L501.6710 #### [facility] [address] [place], [address] Albumin/Globulin [Mass ratio] 1.2 {ratio} Normal 0.9-2.4 [facility] Comment on above: Performed By: #### L 504.2610, L3100.2300, L500.4050, L100.0100, L101.9900, L501.6710 #### [facility] [address] [place], [address] ALK PHOS 73 U/L Normal 35-104 [facility] Comment on above: Performed By: #### L 504.2610, L3100.2300, L500.4050, L100.0100, L101.9900, L501.6710 #### [facility] [address] [place], [address] ALT [Catalytic activity/Vol] 12 U/L Normal <=34 [facility] Comment on above: Performed By: #### L 504.2610, L3100.2300, L500.4050, L100.0100, L101.9900, L501.6710 #### [facility] [address] [place], [address] AST [Catalytic activity/Vol] 20 U/L Normal <=31 [facility] Comment on above: Performed By: #### L 504.2610, L3100.2300, L500.4050, L100.0100, L101.9900, L501.6710 #### [facility] [address] [place], [address] Bilirubin [Mass/Vol] 0.57 mg/dL Normal 0.00-1.30 [facility] Comment on above: Performed By: #### L 504.2610, L3100.2300, L500.4050, L100.0100, L101.9900, L501.6710 #### [facility] [address] [place], [address] BUN/CRE 23.0 RATIO High 10-20 [facility] Comment on above: Performed By: #### L 504.2610, L3100.2300, L500.4050, L100.0100, L101.9900, L501.6710 #### [facility] [address] [place], [address] Calcium [Mass/Vol] 9.1 mg/dL Normal 7.6-11.0 [facility] Comment on above: Performed By: #### L 504.2610, L3100.2300, L500.4050, L100.0100, L101.9900, L501.6710 #### [facility] [address] [place], [address] Chloride [Moles/Vol] 105 mmol/L Normal 98-108 [facility] Comment on above: Performed By: #### L 504.2610, L3100.2300, L500.4050, L100.0100, L101.9900, L501.6710 #### [facility] [address] [place], [address] CO2 [Moles/Vol] 23.3 mmol/L Normal 21.0-32.0 [facility] Comment on above: Performed By: #### L 504.2610, L3100.2300, L500.4050, L100.0100, L101.9900, L501.6710 #### [facility] [address] [place], [address] Creatinine [Mass/Vol] 0.69 mg/dL Low 0.70-1.20 [facility] Comment on above: Performed By: #### L 504.2610, L3100.2300, L500.4050, L100.0100, L101.9900, L501.6710 #### [facility] [address] [place], [address] ECRCL 95.39 ml/min Normal 50-250 [facility] Comment on above: Performed By: #### L 504.2610, L3100.2300, L500.4050, L100.0100, L101.9900, L501.6710 #### [facility] [address] [place], [address] GAP 11 Normal 5-15 [facility] Comment on above: Performed By: #### L 504.2610, L3100.2300, L500.4050, L100.0100, L101.9900, L501.6710 #### [facility] [address] [place], [address] GFR/1.73 sq M.predicted among non-blacks MDRD (S/P/Bld) [Vol rate/Area] 100 mL/min/{1.73_m2} Normal >60 [facility] Comment on above: Result Comment: mL/m in/1.73m2 CKD-EPI Creatinine Equation (2020) Performed By: #### L 504.2610, L3100.2300, L500.4050, L100.0100, L101.9900, L501.6710 #### [facility] [address] [place], [address] Globulin (S) [Mass/Vol] 3.3 g/dL Normal 2.2-4.2 [facility] Comment on above: Performed By: #### L 504.2610, L3100.2300, L500.4050, L100.0100, L101.9900, L501.6710 #### [facility] [address] [place], [address] Glucose [Mass/Vol] 147 mg/dL High 70-99 [facility] Comment on above: Performed By: #### L 504.2610, L3100.2300, L500.4050, L100.0100, L101.9900, L501.6710 #### [facility] [address] [place], [address] Potassium [Moles/Vol] 3.8 mmol/L Normal 3.3-5.1 [facility] Comment on above: Performed By: #### L 504.2610, L3100.2300, L500.4050, L100.0100, L101.9900, L501.6710 #### [facility] [address] [place], [address] Sodium [Moles/Vol] 139 mmol/L Normal 133-145 [facility] Comment on above: Performed By: #### L 504.2610, L3100.2300, L500.4050, L100.0100, L101.9900, L501.6710 #### [facility] [address] [place], [address] T PROT 7.2 g/dL Normal 5.9-8.4 [facility] Comment on above: Performed By: #### L 504.2610, L3100.2300, L500.4050, L100.0100, L101.9900, L501.6710 #### [facility] [address] [place], [address] Urea nitrogen [Mass/Vol] 16 mg/dL Normal 4-19 [facility] Comment on above: Performed By: #### L 504.2610, L3100.2300, L500.4050, L100.0100, L101.9900, L501.6710 #### [facility] [address] [place], [address] Erythrocyte Sed Rateon 07-05 SED RATE 21 mm/hr Normal 0-30 [facility] Comment on above: Performed By: #### L 504.2610, L3100.2300, L500.4050, L100.0100, L101.9900, L501.6710 #### [facility] [address] [place], [address] LDHon 07-05-2024 LDH 173 U/L Normal 84-246 [facility] Comment on above: Order Comment: 1 Performed By: #### L 504.2610, L3100.2300, L500.4050, L100.0100, L101.9900, L501.6710 #### [facility] [address] [place], [address] Oncology Visit Reporton 06-19 Oncology Visit Report [facility] [address] [place] [address] OFFICE VISIT Date of Service: 07/05/24 1429 MR#: [id number] Acct: [id number] Name: MICHELINE JOHNSON Rep #: [id number] : 1965 From: Rudy Avila MD Age/Sex: 58/F Location: [facility] Status: Signed HPI Subjective Date of Service 07/05/24 Chief Complaint F/u for rectal cancer and hypodensities in liver. History of Present Illness 58-year-old woman was found to have high CEA level-66. She had colonoscopy done on 04/16/[address]lsen at [facility] in [facility], showed large polyp about 12 cm from the anal verge. 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 She had a CT scan done on 04/30/2019, chest showed 6 mm left lower lobe nodule, abdomen showed splenomegaly with asymmetrical rectal wall thickening. She was referred for further evaluation. PET/CT scan 05/21/2019 showed hypermetabolic activity in the rectosigmoid junction, right roxana-pelvic soft tissue lymph node, bilateral axillary mediastinum bilateral perihilar. Patient underwent bronchoscopy and EBUS on 06/01/2019 for mediastinal adenopathy. Lymph node sampling was obtained from level 7, 10 R, 10 L, and 11 L. Pathology was consistent with granuloma and no evidence of malignancy. Patient underwent MRI pelvis on 06/02/2019 which demonstrated a rectal mass identified with the lower margin being about 5.2 cm above the anal verge and the most cephalad portion being at approximately the S2 level. The mass extends from approximately the 10 o'clock position along the anterior left wall to the 7 o'clock position. The tumor is seen extending beyond the muscularis propria into the pleura low rectal tissues at the 3 o'clock position measuring approximately 6.6 mm. There are noted to be approximately 7 suspicious regional lymph nodes noted in the perirectal fat, right external iliac chain, and superior rectal chain. The largest lymph node appears to involve the right external iliac near the pelvic sidewall and measures 2.1 cm. MRI staging cT3 cN2b M0-stage IIIC. Had Port placed on 06/11/2019. Began FOLFOX on 06/12/2019. C4 was delayed last week because of neutropenia so 5FU bolus was discontinued. Had diarrhea daily for a week after chemotherapy, resolved with Imodium. Experienced elevated temperature on days 3-4 of cycles 4 5. MRI on 08/09/2019 showed tumor regression. Presented to [facility] ED on 08/19/19 with fever. COVID19 negative, CXR negative, blood cx negative. She finished C8 FOLFOX on 10/02/2019. CT a/p on 10/09/2019 shows no evidence of disease. Began concurrent chemoradiation with capecitabine 1000 mg twice daily on 10/29/2019. Capecitabine held 11/12/19 for thrombocytopenia/neutropen ia. Resume on 11/19/2019, finished chemotherapy and radiation therapy on 12/03/2019. She had LAR with diverting ileostomy on 01/15/[address] done [address] [facility] [address] Rodriguez. Pathology showed ypT3 ypN0. Got IV iron for perioperative anemia. Got 3 weekly doses of Retacrit last dose was on 03/31/2020. Had Reversal of ileostomy on 04/22/2020. Started Prolia injection for osteoporosis in May 2021. CT on 06/03/2023 showed tiny lesion in the liver worrisome for metastatic disease. CT a/p done on 08/29/2023 showed umerus hypodensities in Liver. Had MRI liver on 10/27/2023 showed diffuse non-enhancing lesions in the liver. CT guided liver biopsy on 11/10/2023 showed Steatosis. She is on observation and come for follow up. Feels well. [facility] Medical History (Updated 07/05/24 @ 15:[address] 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) Surgical History History of reversal of ileostomy History of colon resection ( 01/15/20) History of delivery Family History Mother COPD (chronic obstructive pulmonary disease) Father Skin cancer Emphysema lung Lung cancer Sister Heart disease Sepsis Other History of shingles Social History Smoking Status: Former smoker Intake Vital Signs 11/17/23 15:31 07/05/24 14:30 Height 5 ft 6 in 5 ft 6 in Weight: 80.853 kg BMI 28.8 BP 129/74 H Blood Pressure Location Lt brachial Position Sitting Respiration 18 Pulse 91 Pulse Source Monitor Temp 98.2 F Temperature Source Temporal Artery Pulse Oximetry (%) 93 Oxygen Delivery Method room air Intake Is patient in pain?: No Allergies Sulfa (Sulfonamide Antibiotics) Allergy (Intermediate, Verified 07/05/24 14:31) Rash Iodinated Contrast Media Adverse Reaction (Mild, Verified 07/05/24 14:31) Rash Medications ???Medication ???Instructions ???Recorded ???Confirmed ???Type lidocaine-prilocaine 2.5 %-2.5 % 1 applicatio TP DAILY PRN [place] (more content not included)... Normal [facility] NATERAon 06-14-2024 GRACE SEE SCANNED REPORT Normal [facility] Comment on above: Performed By: #### L 900.0098 #### [facility] [address] [place], [address] Absolute lymphocyte countOrd ered By: Rudy Avila on 06-06-2023 Lymphocytes Auto (Unsp spec) [#/Vol] 1.00 10*3/uL 0.83-4.51 [facility] Automated lymphocyte count a s percentage of total leukocytesOrdered By: Rudy Avila on 06-06-2023 Lymphocytes/100 WBC Auto (Unsp spec) 22.0 % 19-41 [facility] Basophil percentageOrdered B y: Rudy Avila on 06-06-2023 Basophils/100 WBC (Bld) 0.4 % 0-1 [facility] Bilirubin [Mass/Vol] 0.90 mg/dL 0.20-1.00 [facility] Comment on above: For patients on eltr ombopag therapy, use of Dimension [place] TBIL is not recommended. Chloride [Moles/Vol] 108 mmol/L 98-107 [facility] Eosinophils/100 WBC (Bld) 2.9 % 0-5 [facility] Glucose [Mass/Vol] 95 mg/dL 74-106 [facility] Hemoglobin (Bld) [Mass/Vol] 10.6 g/dL 12.0-15.0 [facility] LDH [Catalytic activity/Vol] 273 U/L 84-246 [facility] Monocytes/100 WBC (Bld) 9.3 % 0-10 [facility] Neutrophils (Bld) [#/Vol] 2.9 10*3/uL 2.0-7.7 [facility] Neutrophils/100 WBC (Bld) 64.3 % 47-70 [facility] Potassium [Moles/Vol] 4.0 mmol/L 3.5-5.1 [facility] Protein [Mass/Vol] 7.2 g/dL 6.4-8.2 [facility] Sodium [Moles/Vol] 140 mmol/L 136-145 [facility] WBC (Bld) [#/Vol] 4.5 10*3/uL 4.4-11.0 [facility] Determination of erythrocyte mean corpuscular volume (MCV)Ordered By: Rudy Avila on 06-06-2023 MCV (RBC) [Entitic vol] 90.9 fL 81-99 [facility] Erythrocyte distribution wid th ratioOrdered By: Rudy Avila on 06-06-2023 Erythrocyte distribution width (RBC) [Ratio] 14.8 % 11.6-14.6 [facility] Erythrocyte distribution wid th standard deviationOrdered By: Rudy Avila on 06-06-2023 Erythrocyte distribution width (RBC) [Entitic vol] 48.9 fL 35.1-43.9 [facility] Hematocrit Auto (Bld) [Volum e fraction]Ordered By: Rudy Avila on 06-06-2023 Hematocrit (Bld) [Volume fraction] 32.8 % 37-47 [facility] Immature granulocytes/100 WB C Auto (Bld)Ordered By: Rudy Avila on 06-06-2023 Immature granulocytes/100 WBC (Bld) 1.100 % 0.0-0.9 [facility] Comment on above: IG% - Immature Granu locytes (promyelocytes, myelocytes and metamyelocytes) > 1% indicates that a LEFT SHIFT is Present. Laboratory - Chemistry and C hemistry - challengeOrdered By: Rudy Avila on 06-06-2023 Albumin/Globulin [Mass ratio] 1.0 {ratio} 0.9-2.4 [facility] ALP [Catalytic activity/Vol] 64 U/L 45-117 [facility] ALT [Catalytic activity/Vol] 34 U/L 13-56 [facility] CO2 [Moles/Vol] 27.0 mmol/L 21.0-32.0 [facility] Globulin (S) [Mass/Vol] 3.6 g/dL 2.2-4.2 [facility] Urea nitrogen/Creatinine [Mass ratio] 23.5 mg/mg 10-20 [facility] - Hematology and Cell countsOrdered By: Rudy Avila on 06-06-2023 MCH (RBC) [Entitic mass] 29.4 pg 27.0-32.0 [facility] MCHC (RBC) [Mass/Vol] 32.3 g/dL 32-36 [facility] Nucleated RBC/100 WBC (Bld) [Ratio] 0 % 0-5 [facility] Platelet mean volume (Bld) [Entitic vol] 9.9 fL 6.2-12.0 [facility] Platelets (Bld) [#/Vol] 138 10*3/uL 150-450 [facility] No Panel InformationOrdered By: Rudy Avila on 06-06-2023 Estimated Creatinine Clearance Calc 111.85 ml/min [facility] Estimated GFR (MDRD) Amer 133 mL/min >60 [facility] Comment on above: GFR Calc Estimated GFR (MDRD) Non-Af Amer 110 mL/min >60 [facility] Comment on above: Non- GFR Calc RBC Auto (Bld) [#/Vol]Ordere d By: Rudy Avila on 06-06-2023 RBC (Bld) [#/Vol] 3.61 10*6/uL 4.2-5.[address] [facility] Serum or plasma calcium brendan urement (mass/volume)Ordered By: Rudy Avila on 06-06-2023 Calcium [Mass/Vol] 9.0 mg/dL 8.5-10.1 [facility] Serum or plasma carcinoembry onic antigen measurement (mass/volume)Ordered By: Rudy Avila on 06-06-2023 Carcinoembryonic Ag [Mass/Vol] 3.1 ng/mL 0.0-4.7 [facility] Comment on above: Nonsmokers <3.9 Smok ers <5.6[employer] Electrochemiluminescence Immunoassay(ECLIA)Values obtained with different assay methods or kitscannot be used interchangeably. Results cannot beinterpreted as absolute evidence of the presence orabsence of malignant disease.Performed at: [facility] [employer] [id number] Director: Mick Juan PhD, Phone: [phone] Serum or plasma creatinine m easurement (mass/volume)Ordered By: Rudy Avila on 06-06-2023 Creatinine [Mass/Vol] 0.60 mg/dL 0.55-1.02 [facility] Comment on above: The validity of the calculated GFR & GFRAA in patients over 70 years has not been determined. Clinical correlation is essential. Serum or plasma urea nitroge n measurement (mass/volume)Ordered By: Rudy Avila on 06-06-2023 Urea nitrogen [Mass/Vol] 14 mg/dL 10-05 [facility] Thin prep Papanicolaou smear with manual screeningOrdered By: Rudy Avila on 06-06-2023 Thin prep Papanicolaou smear with manual screening 3.6 g/dL 3.2-5.0 [facility] Thin prep Papanicolaou smear with manual screening 28 U/L 15-37 [facility] Thin prep Papanicolaou smear with manual screening 5 5-15 [facility] Absolute lymphocyte countOrd ered By: Rudy Avila on 12-16-2022 Lymphocytes Auto (Unsp spec) [#/Vol] 0.84 10*3/uL 0.83-4.51 [facility] Basophil percentageOrdered B y: Rudy Avila on 12-16-2022 Basophil percentage 3.8 mg/dL 2.5-4.[address] [facility] Basophils/100 WBC (Bld) 0.5 % 0-1 [facility] Bilirubin [Mass/Vol] 0.70 mg/dL 0.20-1.00 [facility] Comment on above: For patients on eltr ombopag therapy, use of Dimension [place] TBIL is not recommended. Chloride [Moles/Vol] 110 mmol/L 98-107 [facility] Eosinophils/100 WBC (Bld) 2.6 % 0-5 [facility] Glucose [Mass/Vol] 95 mg/dL 74-106 [facility] LDH [Catalytic activity/Vol] 215 U/L 84-246 [facility] Neutrophils (Bld) [#/Vol] 2.6 10*3/uL 2.0-7.7 [facility] Neutrophils/100 WBC (Bld) 66.1 % 47-70 [facility] Potassium [Moles/Vol] 3.8 mmol/L 3.5-5.1 [facility] Protein [Mass/Vol] 7.4 g/dL 6.4-8.2 [facility] Sodium [Moles/Vol] 141 mmol/L 136-145 [facility] WBC (Bld) [#/Vol] 3.9 10*3/uL 4.4-11.0 [facility] Blood erythrocytes count (nu mber/volume)Ordered By: Rudy Avila on 12-16-2022 RBC (Bld) [#/Vol] 3.60 10*6/uL 4.2-5.[address] [facility] Blood hemoglobin measurement (mass/volume)Ordered By: Rudy Avila on 12-16-2022 Hemoglobin (Bld) [Mass/Vol] 11.0 g/dL 12.0-15.0 [facility] Blood lymphocytes/100 leukoc ytesOrdered By: Rudy Avila on 12-16-2022 Lymphocytes/100 WBC (Bld) 21.7 % 19-41 [facility] Blood monocytes/100 leukocyt esOrdered By: Rudy Avila on 12-16-2022 Monocytes/100 WBC (Bld) 8.8 % 0-10 [facility] Blood platelet mean volumeOr dered By: Rudy Avila on 12-16-2022 Platelet mean volume (Bld) [Entitic vol] 10.3 fL 6.2-12.0 [facility] Determination of erythrocyte mean corpuscular volume (MCV)Ordered By: Rudy vAila on 12-16-2022 MCV (RBC) [Entitic vol] 91.1 fL 81-99 [facility] Hematocrit Auto (Bld) [Volum e fraction]Ordered By: Rudy Avila on 12-16-2022 Hematocrit (Bld) [Volume fraction] 32.8 % 37-47 [facility] Iron measurement (mass/mass) Ordered By: Rudy Avila on 12-16-2022 Iron (Unsp spec) [Mass/Mass] 69 ug/dL 50-170 [facility] - Chemistry and C hemistry - challengeOrdered By: Rudy Avila on 12-16-2022 ALP [Catalytic activity/Vol] 74 U/L 45-117 [facility] ALT [Catalytic activity/Vol] 30 U/L 13-56 [facility] CO2 [Moles/Vol] 27.0 mmol/L 21.0-32.0 [facility] Globulin (S) [Mass/Vol] 3.9 g/dL 2.2-4.2 [facility] Magnesium [Mass/Vol] 2.0 mg/dL 1.6-2.6 [facility] Urea nitrogen/Creatinine [Mass ratio] 25.7 mg/mg 10-20 [facility] - Hematology and Cell countsOrdered By: Rudy Avila on 12-16-2022 Erythrocyte distribution width (RBC) [Entitic vol] 48.6 fL 35.1-43.9 [facility] Erythrocyte distribution width (RBC) [Ratio] 14.7 % 11.6-14.6 [facility] Immature granulocytes/100 WBC (Bld) 0.300 % 0.0-0.9 [facility] Comment on above: IG% - Immature Granu locytes (promyelocytes, myelocytes and metamyelocytes) > 1% indicates that a LEFT SHIFT is Present. MCH (RBC) [Entitic mass] 30.6 pg 27.0-32.0 [facility] Nucleated RBC/100 WBC (Bld) [Ratio] 0 % 0-5 [facility] MCHC Auto (RBC) [Mass/Vol]Or dered By: Rudy Avila on 12-16-2022 MCHC (RBC) [Mass/Vol] 33.5 g/dL 32-36 [facility] No Panel InformationOrdered By: Rudy Avila on 12-16-2022 Estimated Creatinine Clearance Calc 106.31 ml/min [facility] Estimated GFR (MDRD) Amer 147 mL/min >60 [facility] Comment on above: GFR Calc Estimated GFR (MDRD) Non-Af Amer 122 mL/min >60 [facility] Comment on above: Non- GFR Calc Total Iron Binding Capacity 237 ug/dL 250-450 [facility] Vitamin D 25-Hydroxy 43.8 ng/mL [facility] Comment on above: Vitamin D 25(OH) Sta tus Range Deficiency <20 ng/mL (50nmol/L) Insufficiency 20 - 30 ng/mL (50 - 75 nmol/L) Sufficiency 30 - 100 ng/mL (75 - 250 nmol/L) Toxicity >100 ng/mL (>250 nmol/L) Platelets bldOrdered By: Caleb Avila on 12-16-2022 Platelets (Bld) [#/Vol] 117 10*3/uL 150-450 [facility] Serum or plasma albumin brendan urement (mass/volume)Ordered By: Rudy Avila on 12-16-2022 Albumin [Mass/Vol] 3.5 g/dL 3.2-5.0 [facility] Serum or plasma albumin/glob ulin mass ratioOrdered By: Rudy Avila on 12-16-2022 Albumin/Globulin [Mass ratio] 0.9 {ratio} 0.9-2.4 [facility] Serum or plasma calcium brendan urement (mass/volume)Ordered By: Rudy Avila on 12-16-2022 Calcium [Mass/Vol] 8.8 mg/dL 8.5-10.1 [facility] Serum or plasma carcinoembry onic antigen measurement (mass/volume)Ordered By: Rudy Avila on 12-16-2022 Carcinoembryonic Ag [Mass/Vol] 2.8 ng/mL 0.0-4.7 [facility] Comment on above: Nonsmokers <3.9 Smok ers <5.6[employer] Electrochemiluminescence Immunoassay(ECLIA)Values obtained with different assay methods or kitscannot be used interchangeably. Results cannot beinterpreted as absolute evidence of the presence orabsence of malignant disease.Performed at: [facility] [address] [id number] Director: Mick Juan PhD, Phone: [phone] Serum or plasma creatinine m easurement (mass/volume)Ordered By: Rudy Avila on 12-16-2022 Creatinine [Mass/Vol] 0.54 mg/dL 0.55-1.02 [facility] Comment on above: The validity of the calculated GFR & GFRAA in patients over 70 years has not been determined. Clinical correlation is essential. Serum or plasma ferritin pool surement (mass/volume)Ordered By: Rudy Avila on 12-16-2022 Ferritin [Mass/Vol] 628 ng/mL 8-[address] [facility] Serum or plasma iron saturat ion measurement (mass fraction)Ordered By: Rudy Avila on 12-16-2022 Iron saturation [Mass fraction] 29.1 % 15.0-55.0 [facility] Serum or plasma urea nitroge n measurement (mass/volume)Ordered By: Rudy Avila on 12-16-2022 Urea nitrogen [Mass/Vol] 14 mg/dL 7-18 [facility] Thin prep Papanicolaou smear with manual screeningOrdered By: Rudy Avila on 12-16-2022 Thin prep Papanicolaou smear with manual screening 20 U/L 15-37 [facility] Thin prep Papanicolaou smear with manual screening 4 5-15 [facility] Absolute lymphocyte countOrd ered By: Dr. Avila on 06-14-2022 Lymphocytes Auto (Unsp spec) [#/Vol] 0.89 10*3/uL 0.83-4.51 [facility] Basophil percentageOrdered B y: Dr. Avila on 06-14-2022 Basophil percentage 3.7 mg/dL 2.5-4.[address] [facility] Basophils/100 WBC (Bld) 0.5 % 0-1 [facility] Bilirubin [Mass/Vol] 0.50 mg/dL 0.20-1.00 [facility] Comment on above: For patients on eltr ombopag therapy, use of Dimension [place] TBIL is not recommended. Chloride [Moles/Vol] 108 mmol/L 98-107 [facility] Eosinophils/100 WBC (Bld) 4.6 % 0-5 [facility] Glucose [Mass/Vol] 88 mg/dL 74-106 [facility] LDH [Catalytic activity/Vol] 177 U/L 84-246 [facility] Neutrophils (Bld) [#/Vol] 2.3 10*3/uL 2.0-7.7 [facility] Neutrophils/100 WBC (Bld) 61.2 % 47-70 [facility] Potassium [Moles/Vol] 3.6 mmol/L 3.5-5.1 [facility] Protein [Mass/Vol] 7.2 g/dL 6.4-8.2 [facility] Sodium [Moles/Vol] 139 mmol/L 136-145 [facility] WBC (Bld) [#/Vol] 3.7 10*3/uL 4.4-11.0 [facility] Blood erythrocytes count (nu mber/volume)Ordered By: Dr. Avila on 06-14-2022 RBC (Bld) [#/Vol] 3.40 10*6/uL 4.2-5.[address] [facility] Blood hemoglobin measurement (mass/volume)Ordered By: Dr. Avila on 06-14-2022 Hemoglobin (Bld) [Mass/Vol] 10.2 g/dL 12.0-15.0 [facility] Blood lymphocytes/100 leukoc ytesOrdered By: Dr. Avila on 06-14-2022 Lymphocytes/100 WBC (Bld) 24.2 % 19-41 [facility] Blood monocytes/100 leukocyt esOrdered By: Dr. Avila on 06-14-2022 Monocytes/100 WBC (Bld) 9.2 % 0-10 [facility] Blood platelet mean volumeOr dered By: Dr. Avila on 06-14-2022 Platelet mean volume (Bld) [Entitic vol] 9.8 fL 6.2-12.0 [facility] Determination of erythrocyte mean corpuscular volume (MCV)Ordered By: Dr. Avila on 06-14-2022 MCV (RBC) [Entitic vol] 92.6 fL 81-99 [facility] Hematocrit Auto (Bld) [Volum e fraction]Ordered By: Dr. Avila on 06-14-2022 Hematocrit (Bld) [Volume fraction] 31.5 % 37-47 [facility] Laboratory - Chemistry and C hemistry - challengeOrdered By: Dr. Avila on 06-14-2022 ALP [Catalytic activity/Vol] 66 U/L 45-117 [facility] ALT [Catalytic activity/Vol] 25 U/L 13-56 [facility] CO2 [Moles/Vol] 26.0 mmol/L 21.0-32.0 [facility] Globulin (S) [Mass/Vol] 3.8 g/dL 2.2-4.2 [facility] Urea nitrogen/Creatinine [Mass ratio] 25.6 mg/mg 10-20 [facility] - Hematology and Cell countsOrdered By: Dr. Avila on 06-14-2022 Erythrocyte distribution width (RBC) [Entitic vol] 55.8 fL 35.1-43.9 [facility] Erythrocyte distribution width (RBC) [Ratio] 16.7 % 11.6-14.6 [facility] Immature granulocytes/100 WBC (Bld) 0.300 % 0.0-0.9 [facility] Comment on above: IG% - Immature Granu locytes (promyelocytes, myelocytes and metamyelocytes) > 1% indicates that a LEFT SHIFT is Present. MCH (RBC) [Entitic mass] 30.0 pg 27.0-32.0 [facility] Nucleated RBC/100 WBC (Bld) [Ratio] 0 % 0-5 [facility] MCHC Auto (RBC) [Mass/Vol]Or dered By: Dr. Avila on 06-14-2022 MCHC (RBC) [Mass/Vol] 32.4 g/dL 32-36 [facility] No Panel InformationOrdered By: Dr. Avila on 06-14-2022 Estimated Creatinine Clearance Calc 113.93 ml/min [facility] Estimated GFR (MDRD) Amer 161 mL/min >60 [facility] Comment on above: GFR Calc Estimated GFR (MDRD) Non-Af Amer 133 mL/min >60 [facility] Comment on above: Non- GFR Calc Vitamin D 25-Hydroxy 49.7 ng/mL [facility] Comment on above: Vitamin D 25(OH) Sta tus Range Deficiency <20 ng/mL (50nmol/L) Insufficiency 20 - 30 ng/mL (50 - 75 nmol/L) Sufficiency 30 - 100 ng/mL (75 - 250 nmol/L) Toxicity >100 ng/mL (>250 nmol/L) Platelets bldOrdered By: Dr. Avila on 06-14-2022 Platelets (Bld) [#/Vol] 147 10*3/uL 150-450 [facility] Serum or plasma albumin brendan urement (mass/volume)Ordered By: Dr. Avila on 06-14-2022 Albumin [Mass/Vol] 3.4 g/dL 3.2-5.0 [facility] Serum or plasma albumin/glob ulin mass ratioOrdered By: Dr. Avila on 06-14-2022 Albumin/Globulin [Mass ratio] 0.9 {ratio} 0.9-2.4 [facility] Serum or plasma calcium brendan urement (mass/volume)Ordered By: Dr. Avila on 06-14-2022 Calcium [Mass/Vol] 8.8 mg/dL 8.5-10.1 [facility] Serum or plasma carcinoembry onic antigen measurement (mass/volume)Ordered By: Dr. Avila on 06-14-2022 Carcinoembryonic Ag [Mass/Vol] 3.0 ng/mL 0.0-4.7 [facility] Comment on above: Nonsmokers <3.9 Smok ers <5.6[employer] Electrochemiluminescence Immunoassay(ECLIA)Values obtained with different assay methods or kitscannot be used interchangeably. Results cannot beinterpreted as absolute evidence of the presence orabsence of malignant disease.Performed at: [facility] [id number] Director: Mick Juan PhD, Phone: [phone] Serum or plasma creatinine m easurement (mass/volume)Ordered By: Dr. Avila on 06-14-2022 Creatinine [Mass/Vol] 0.51 mg/dL 0.55-1.02 [facility] Comment on above: The validity of the calculated GFR & GFRAA in patients over 70 years has not been determined. Clinical correlation is essential. Serum or plasma urea nitroge n measurement (mass/volume)Ordered By: Dr. Avila on 06-14-2022 Urea nitrogen [Mass/Vol] 13 mg/dL 7-18 [facility] Thin prep Papanicolaou smear with manual screeningOrdered By: Dr. Avila on 06-14-2022 Thin prep Papanicolaou smear with manual screening 15 U/L 15-37 [facility] Thin prep Papanicolaou smear with manual screening 5 5-15 [facility] Stool gastrointestinal hemog lobin detection by immunologic methodOrdered By: Rudy Avila on 12-22-2021 Lower GI hemoglobin IA Ql (Stl) [facility] Lower GI hemoglobin IA Ql (Stl) [facility] Stool gastrointestinal hemog lobin detection by immunologic methodOrdered By: Dr. Avila on 12-22-2021 Lower GI hemoglobin IA Ql (Stl) [facility] Iron measurement (mass/mass) Ordered By: Dr. Avila on 12-14-2021 Iron (Unsp spec) [Mass/Mass] 33 ug/dL 50-170 [facility] No Panel InformationOrdered By: Dr. Avila on 12-14-2021 Total Iron Binding Capacity 198 ug/dL 250-450 [facility] Serum or plasma ferritin pool surement (mass/volume)Ordered By: Dr. Avila on 12-14-2021 Ferritin [Mass/Vol] 935 ng/mL 8-[address] [facility] Serum or plasma iron saturat ion measurement (mass fraction)Ordered By: Dr. Avila on 12-14-2021 Iron saturation [Mass fraction] 16.7 % 15.0-55.0 [facility] Basophil percentageon 03-23- 2022 Basophil percentage 3.4 mg/dL 2.5-4.[address] [facility] Work Phone: No Panel Informationon 06-10 Vitamin D 25-Hydroxy 37.7 ng/mL [facility] Work Phone: Comment on above: Vitamin D 25(OH) Sta tus Range Deficiency <20 ng/mL (50nmol/L) Insufficiency 20 - 30 ng/mL (50 - 75 nmol/L) Sufficiency 30 - 100 ng/mL (75 - 250 nmol/L) Toxicity >100 ng/mL (>250 nmol/L) Absolute lymphocyte counton 05-28-2021 Lymphocytes Auto (Unsp spec) [#/Vol] 0.78 10*3/uL 0.83-4.51 [facility] Work Phone: Basophil percentageon 2021 Basophils/100 WBC (Bld) 0.5 % 0-1 [facility] Work Phone: Bilirubin [Mass/Vol] 0.50 mg/dL 0.20-1.00 [facility] Work Phone: Comment on above: For patients on eltr ombopag therapy, use of Dimension [place] TBIL is not recommended. Chloride [Moles/Vol] 109 mmol/L 98-107 [facility] Work Phone: Eosinophils/100 WBC (Bld) 5.2 % 0-5 [facility] Work Phone: Glucose [Mass/Vol] 97 mg/dL 74-106 [facility] Work Phone: Neutrophils (Bld) [#/Vol] 2.5 10*3/uL 2.0-7.7 [facility] Work Phone: Neutrophils/100 WBC (Bld) 64.6 % 47-70 [facility] Work Phone: Potassium [Moles/Vol] 3.8 mmol/L 3.5-5.1 [facility] Work Phone: Protein [Mass/Vol] 7.3 g/dL 6.4-8.2 [facility] Work Phone: Sodium [Moles/Vol] 142 mmol/L 136-145 [facility] Work Phone: [phone] WBC (Bld) [#/Vol] 3.8 10*3/uL 4.4-11.0 [facility] Work Phone: Blood erythrocytes count (nu mber/volume)on 05-28-2021 RBC (Bld) [#/Vol] 3.97 10*6/uL 4.2-5.[address] [facility] Work Phone: Blood hemoglobin measurement (mass/volume)on 05-28-2021 Hemoglobin (Bld) [Mass/Vol] 12.0 g/dL 12.0-15.0 [facility] Work Phone: Blood lymphocytes/100 leukoc yteson 05-28-2021 Lymphocytes/100 WBC (Bld) 20.3 % 19-41 [facility] Work Phone: [phone] Blood monocytes/100 leukocyt eson 05-28-2021 Monocytes/100 WBC (Bld) 9.1 % 0-10 [facility] Work Phone: Blood platelet mean volumeon 05-28-2021 Platelet mean volume (Bld) [Entitic vol] 10.0 fL 6.2-12.0 [facility] Work Phone: Determination of erythrocyte mean corpuscular volume (MCV)on 05-28-2021 MCV (RBC) [Entitic vol] 89.9 fL 81-99 [facility] Work Phone: Hematocrit Auto (Bld) [Volum e fraction]on 05-28-2021 Hematocrit (Bld) [Volume fraction] 35.7 % 37-47 [facility] Work Phone: Laboratory - Chemistry and C hemistry - challengeon 05-28-2021 ALP [Catalytic activity/Vol] 71 U/L 45-117 [facility] Work Phone: ALT [Catalytic activity/Vol] 22 U/L 13-56 [facility] Work Phone: [phone] CO2 [Moles/Vol] 29.0 mmol/L 21.0-32.0 [facility] Work Phone: [phone] Globulin (S) [Mass/Vol] 3.8 g/dL 2.2-4.2 [facility] Work Phone: [phone] Urea nitrogen/Creatinine [Mass ratio] 18.4 mg/mg 10-20 [facility] Work Phone: [phone] Laboratory - Hematology and Cell countson 05-28-2021 Erythrocyte distribution width (RBC) [Entitic vol] 49.0 fL 35.1-43.9 [facility] Work Phone: [phone] Erythrocyte distribution width (RBC) [Ratio] 14.8 % 11.6-14.6 [facility] Work Phone: [phone] Immature granulocytes/100 WBC (Bld) 0.300 % 0.0-0.9 [facility] Work Phone: [phone] Comment on above: IG% - Immature Granu locytes (promyelocytes, myelocytes and metamyelocytes) > 1% indicates that a LEFT SHIFT is Present. MCH (RBC) [Entitic mass] 30.2 pg 27.0-32.0 [facility] Work Phone: [phone] Nucleated RBC/100 WBC (Bld) [Ratio] 0 % 0-5 [facility] Work Phone: [phone] MCHC Auto (RBC) [Mass/Vol]on 05-28-2021 MCHC (RBC) [Mass/Vol] 33.6 g/dL 32-36 [facility] Work Phone: [phone] No Panel Informationon 05-28 Estimated Creatinine Clearance Calc 98.01 ml/min [facility] Work Phone: [phone] Estimated GFR (MDRD) Amer 133 mL/min >60 [facility] Work Phone: [phone] Comment on above: GFR Calc Estimated GFR (MDRD) Non-Af Amer 110 mL/min >60 [facility] Work Phone: Comment on above: Non- GFR Calc Platelets bldon 05-28-2021 Platelets (Bld) [#/Vol] 149 10*3/uL 150-450 [facility] Work Phone: Serum or plasma albumin brendan urement (mass/volume)on 05-28-2021 Albumin [Mass/Vol] 3.5 g/dL 3.2-5.0 [facility] Work Phone: Serum or plasma albumin/glob ulin mass ratioon 05-28-2021 Albumin/Globulin [Mass ratio] 0.9 {ratio} 0.9-2.4 [facility] Work Phone: Serum or plasma calcium brendan urement (mass/volume)on 05-28-2021 Calcium [Mass/Vol] 8.6 mg/dL 8.5-10.1 [facility] Work Phone: Serum or plasma carcinoembry onic antigen measurement (mass/volume)on 05-28-2021 Carcinoembryonic Ag [Mass/Vol] 3.1 ng/mL 0.0-4.7 [facility] Work Phone: Comment on above: Nonsmokers <3.9 Smok ers <5.6[employer] Electrochemiluminescence Immunoassay(ECLIA)Values obtained with different assay methods or kitscannot be used interchangeably. Results cannot beinterpreted as absolute evidence of the presence orabsence of malignant disease.Performed at: [facility] [id number] Director: Mick Juan PhD, Phone: [phone] Serum or plasma creatinine m easurement (mass/volume)on 05-28-2021 Creatinine [Mass/Vol] 0.60 mg/dL 0.55-1.02 [facility] Work Phone: Comment on above: The validity of the calculated GFR & GFRAA in patients over 70 years has not been determined. Clinical correlation is essential. Serum or plasma urea nitroge n measurement (mass/volume)on 05-28-2021 Urea nitrogen [Mass/Vol] 11 mg/dL 7-18 [facility] Work Phone: Thin prep Papanicolaou smear with manual screeningon 05-28-2021 Thin prep Papanicolaou smear with manual screening 16 U/L 15-37 [facility] Work Phone: Thin prep Papanicolaou smear with manual screening 4 5-15 [facility] Work Phone: Thin prep Papanicolaou smear with manual screening 161 U/L 84-246 [facility] Work Phone: Blood manual differential co mment interpretation (narrative result)on 06-03-2020 Manual differential comment Jerald (Bld) [Interp] COMMENT [facility] Comment on above: LYMPHOPENIA. Iron measurement (mass/mass) on 06-03-2020 Iron (Unsp spec) [Mass/Mass] 52 ug/dL 50-170 [facility] Work Phone: No Panel Informationon 06-03 Total Iron Binding Capacity 213 ug/dL 250-450 [facility] Work Phone: Serum or plasma ferritin pool surement (mass/volume)on 06-03-2020 Ferritin [Mass/Vol] 1403 ng/mL 8-[address] [facility] Work Phone: Serum or plasma iron saturat ion measurement (mass fraction)on 06-03-2020 Iron saturation [Mass fraction] 24.4 % 15.0-55.0 [facility] Work Phone: Review by pathologiston 03-21 Pathologist review Jerald (Unsp spec) [Interp] May foll [facility] Laboratory - Chemistry and C hemistry - challengeon 03-31-2020 Cobalamin (Vitamin B12) [Mass/Vol] 508 pg/mL 211-911 [facility] Serum or plasma folate measu rement (mass/volume)on 03-31-2020 Folate [Mass/Vol] 28.80 ng/mL 3.1-55.4 [facility] Blood platelet adequacy dete ction by light microscopyon 03-17-2020 Platelets LM Ql (Bld) ADEQUATE ADEQ [facility] Hypochromatic red blood cell detectionon 03-17-2020 Hypochromia Ql (Bld) 1+ [facility] Laboratory - Hematology and Cell countson 02-29-2020 Anisocytosis Ql (Bld) 1+ [facility] Erythrocyte basophilic stipp ling detectionon 01-07-2020 Basophilic stippling LM Ql (Bld) RARE [facility] Macrocytes detectionon 01-06 Macrocytes Ql (Bld) 1+ [facility] RBC morphologyon 12-31-2019 RBC morphology finding Nom (Bld) N CHROM NORMAL NORM C&C [facility] Laboratory - Microbiology an d Antimicrobial susceptibilityon 12-30-2019 Bacteria identified Cx Nom (Bld) No growth in 5 days. [facility] Bacteria identified Respirat ory culture Nom (Unsp spec)on 12-28-2019 Respiratory Culture Staphylococcus aureus [facility] Respiratory Culture Presumptive C albicans [facility] Bacteria identified Respirat ory culture Nom (Unsp spec)on 12-26-2019 Respiratory Culture Staphylococcus aureus [facility] Respiratory Culture Presumptive C albicans [facility] Gram stain for investigation of transfusion reactionon 12-26-2019 Microscopic observation Gram stain Nom (Unsp spec) [facility] Bacteria identified Respirat ory culture Nom (Unsp spec)on 12-25-2019 Respiratory Culture Staphylococcus aureus [facility] Respiratory Culture Presumptive C albicans [facility] Gram stain for investigation of transfusion reactionon 12-25-2019 Microscopic observation Gram stain Nom (Unsp spec) [facility] Microscopic observation Gram stain Nom (Unsp spec) [facility] Basophil percentageon 2019 Lactate [Moles/Vol] 0.6 mmol/L 0.4-2.[address] [facility] Laboratory - Microbiology an d Antimicrobial susceptibilityon 12-24-2019 Bacteria identified Cx Nom (Bld) No growth in 5 days. [facility] Bacteria identified Cx Nom (Bld) No growth in 5 days. [facility] Basophil percentageon 2019 Eosinophils/100 WBC (Bld) 1 % 0-5 [facility] Laboratory - Hematology and Cell countson 12-17-2019 Band form neutrophils/100 WBC (Bld) 2 % 0-5 [facility] Lymphocytes/100 WBC (Bld) 7 % 19-41 [facility] Monocytes/100 WBC (Bld) 9 % 0-10 [facility] Neutrophils/100 WBC (Bld) 81 % 47-70 [facility] Total cell counton 0 Cells counted [employer] (Bld/Tiss) [#] 100 MANUAL DIFF [facility] Blood polychromasia detectio n by light microscopyon 11-27-2019 Polychromasia LM Ql (Bld) RARE [facility] Laboratory - Chemistry and C hemistry - challengeon 10-02-2019 Magnesium [Mass/Vol] 1.9 mg/dL 1.6-2.6 [facility] INR in Blood by Coagulation assayon 05-24-2019 INR Coag (Bld) [Relative time] 1.0 {INR} [facility] Laboratory - Coagulationon 0 05-24-2019 PT Coag (PPP) [Time] 13.0 s 11.7-14.[address] [facility] [address] ABDOMEN/PELVIS W/CONTRAST on 05-01-2019 CT ABDOMEN/PELVIS W/CONTRAST ORIGINAL CT ABDOMEN/PELVIS W/CONTRAST CLINICAL STATEMENT: RECTAL CANCER. COMPARISON: None Recist 1.1: POTENTIAL TARGET TUMOR LESIONS (maximum 5 lesions, maximum 2 per organ, longest dimension in axial plane reported, >10 mm, reproducible lesions): None. POTENTIAL TARGET LYMPH NODES (>15 mm short axis, maximum 2): None. NONTARGET LESIONS (Definite tumor lesions, lymph nodes 10-14 mm short axis, immeasurable lesions such as lymphangitic involvement, ascites, pleural effusions, etc.): None TECHNIQUE: Axial images were obtained from the lung bases through the pubic symphysis after the administration of IV and enteric contrast. Coronal and sagittal reformatted images were generated from the axial dataset. This exam was performed according to our departmental dose optimization program, and includes the following measures where applicable: automated exposure control, adjustment of the mAs and/or kVp according to patient size and/or exam, and an iterative reconstruction algorithm. FINDINGS: CT thorax reported separately. No suspicious findings seen in the liver. There is splenomegaly with the spleen measuring 16.2 cm in long axis. The pancreas and adrenal glands are grossly unremarkable. The kidneys enhance symmetrically. There is no hydronephrosis. No filling defects seen in the gallbladder. The large and small bowel demonstrate no obstruction. The appendix is normal. Asymmetric rectal wall thickening noted on image 83. The aorta is normal in caliber. There is mild atherosclerosis of the larger arteries. There is no lymphadenopathy. Subcentimeter short axis lymph nodes noted near the RIGHT colon. No pathologically enlarged lymph nodes seen in the mesentery. Retroperitoneal lymph nodes measure a maximum of 0.7 cm in short axis on image 48. Subcentimeter short axis pelvic lymph nodes visualized. No adnexal masses seen. No filling defect identified in the bladder. There is no fracture or aggressive osseous lesion. Degenerative changes are present in the spine. IMPRESSION: 1. Scattered subcentimeter short axis lymph nodes do not currently meet criteria for lymphadenopathy. 2. Asymmetric rectal wall thickening presumably relates to the known malignancy. 3. Splenomegaly. 4. CT thorax reported separately. Interpreted By: Humberto Hopson MD Preliminary Report By: Humberto Hopson MD Electronically Signed By: Humberto Hopson MD Dictated Date: 05/01/2019 3:49:01 PM Prelim Date: 05/01/2019 3:49:01 PM Sign Date: 05/01/2019 3:56:00 PM Ordering Provider:Jean-Paul Murguia [facility] ([place]) CT THORAX W/ CONTRASTon 04-21 CT THORAX W/ CONTRAST ORIGINAL CT THORAX W/ CONTRAST CLINICAL STATEMENT: RECTAL CANCER. TECHNIQUE: Multiple-row detector helical CT examination of the thorax with IV contrast. Axial, sagittal, and coronal reconstructed images. This exam was performed according to our departmental dose optimization program, and includes the following measures where applicable: automated exposure control, adjustment of the mAs and/or kVp according to patient size and/or exam, and an iterative reconstruction algorithm. COMPARISON: None Recist 1.1: POTENTIAL TARGET TUMOR LESIONS (maximum 5 lesions, maximum 2 per organ, longest dimension in axial plane reported, >10 mm, reproducible lesions): None. POTENTIAL TARGET LYMPH NODES (>15 mm short axis, maximum 2): None. NONTARGET LESIONS (Definite tumor lesions, lymph nodes 10-14 mm short axis, immeasurable lesions such as lymphangitic involvement, ascites, pleural effusions, etc.): A RIGHT paratracheal space lymph node on image 25 measures 1 cm in short axis. FINDINGS:Scattered respiratory motion artifacts visualized. There are nonspecific scattered groundglass opacities within the LEFT upper lobe and bilateral lower lobes. A nodule in the LEFT lower lobe on image 49 measures 6 mm There is no pneumothorax or pleural fluid. The trachea is normal. The heart is normal in size. No pericardial effusion. The great vessels are normal in caliber. There is no visible coronary artery calcification. A RIGHT paratracheal space lymph node on image 25 measures 1 cm in short axis. Lymph nodes in the lateral aortic recess measuring up to 6 mm in short axis. Subcarinal space lymph nodes are a maximum of 1 cm in short axis. There is no fracture or aggressive osseous lesion. Degenerative changes are present in the spine. The abdomen and pelvis CT is reported separately IMPRESSION: 1. Borderline lymph nodes in the mediastinum. 2. Indeterminant LEFT lower lobe nodule. Given the history of malignancy, surveillance advised. 3. Scattered groundglass opacities in the lungs could be inflammatory. Again, attention on follow-up advised. Interpreted By: Humberto Hopson MD Preliminary Report By: Humberto Hopson MD Electronically Signed By: Humberto Hopson MD Dictated Date: 05/01/2019 3:56:02 PM Prelim Date: 05/01/2019 3:56:02 PM Sign Date: 05/01/2019 4:01:18 PM Ordering Provider:Jean-Paul Murguia [facility] ([place]) Final Surgical Pathology Rep hollis 04-19-2019 Final Surgical Pathology Report . Pathology Reports Accession: Collected Date/Time: Received Date/Time: Pathologist: [id number] 04/16/2019 09:05 EST 04/17/2019 06:59 UMESH RUSSO MD Final Surgical Pathology Report DIAGNOSIS: A) COLON MASS, BIOPSY @ 15 CM -- INVASIVE, MODERATELY DIFFERENTIATED ADENOCARCINOMA, COLONIC TYPE. THE EXTENT OF INVASION CANNOT BE QUANTIFIED ON THE BASIS OF THIS BIOPSY SPECIMEN. 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 TN CLASSIFICATION pT=X pN=X COMMENT: [facility] - # [id number] CLINICAL INFORMATION: Procedure: COLONOSCOPY WITH BIOPSY Preoperative diagnosis: POSITIVE COLOGUARD Postoperative diagnosis: SAME SPECIMEN: A COLON, BX - MASS @ 15 CM B RECTAL POLYPS - BIOPSY GROSS DESCRIPTION: A. Received in formalin labeled: Mass at 15 cm are 4 singh-red tissue fragments ranging from minute to 0.3 cm. TS -1 B. Received in formalin labeled rectal polyps biopsy are 3 singh glistening soft tissues ranging from 0.2 to 0.3 cm. TS -1 Dictated by Naz KAUR (ASC) MICROSCOPIC DESCRIPTION: A&B) Slides reviewed. Electronically Signed by Pathology Report verified by [facility] Electronically signed by UMESH LYNN Sign out Date: 04/19/2019 11:14 Performing Lab: [address] Normal [facility] ([place]) Comment on above: Performed By: #### S PFR #### [place] [address] Film Cleaner Cytology Reporton 2018 Film Cleaner Cytology Report . Pathology Reports Accession: Collected Date/Time: Received Date/Time: Pathologist: [id number] 01/22/2019 14:09 EST 01/23/2019 18:00 EST Film [employer]er Cytology Report SPECIMEN: Specimen Description: Liquid Prep Reflex ASCUS+ Specimen: Cervical/Endocervical Screening or Diagnostic: Screening RELEVANT HISTORY: LMP: Post Menopausal: Yes [id number] SPECIMEN ADEQUACY: SATISFACTORY FOR EVALUATION ENDOCERVICAL/TRANSFORMATIO NAL ZONE COMPONENT PRESENT INTERPRETATION/RESULTS: NEGATIVE FOR INTRAEPITHELIAL LESION OR MALIGNANCY COMMENT: This Pap Test was successfully processed and evaluated with the assistance of the [employer] ThinPrep Test Imaging System. Electronically Signed by Pathology report verified by [facility] Screened by: KK Electronically signed by Dana ROBERTSON ([facility]) Sign-Out Date: 01/26/2019 13:53 Performing Lab: [address] Disclaimer The Pap test is a screening test for cervical cancer. As evidenced by published data, it is subject to both inherent false negative and false positive results. Your patient's results should be interpreted in context with pertinent clinical history including gynecological examination. Normal [facility] ([place]) Comment on above: Performed By: #### G YCR #### [place] [address] .Auto Diffon 01-17-2019 Ammonia (P) [Mass/Vol] 0.40 10 3/mcL Normal 0.15-1.00 [facility] ([place]) Comment on above: Performed By: #### C EA, GFR, CMP, LIPID, TSH #### [place] [address] #### ANEU, ADIFF, CBC #### [address] [address] Basophils (Bld) [#/Vol] 0.00 10 3/mcL Normal 0.00-0.19 [facility] ([place]) Comment on above: Performed By: #### C EA, GFR, CMP, LIPID, TSH #### [place] [address] #### ANEU, ADIFF, CBC #### [address] [address] Basophils/100 WBC (Bld) 0.8 % Normal 0.0-2.5 [facility] ([place]) Comment on above: Performed By: #### C EA, GFR, CMP, LIPID, TSH #### [place] [address] #### ANEU, ADIFF, CBC #### [address] [address] Eosinophils (Bld) [#/Vol] 0.20 10 3/mcL Normal 0.00-0.40 [facility] ([place]) Comment on above: Performed By: #### C EA, GFR, CMP, LIPID, TSH #### [place] [address] #### ANEU, ADIFF, CBC #### [address] [address] Eosinophils/100 WBC (Bld) 4.1 % Normal 0.0-7.0 [facility] ([place]) Comment on above: Performed By: #### C EA, GFR, CMP, LIPID, TSH #### [place] [address] #### ANEU, ADIFF, CBC #### [address] [address] Lymphocytes (Bld) [#/Vol] 0.60 10 3/mcL Low 0.77-3.85 [facility] ([place]) Comment on above: Performed By: #### C EA, GFR, CMP, LIPID, TSH #### [address] [address] #### ANEU, ADIFF, CBC #### [address] [address] Lymphocytes/100 WBC (Bld) 13.8 % Normal 10.0-50.0 [facility] ([place]) Comment on above: Performed By: #### C EA, GFR, CMP, LIPID, TSH #### [place] [address] #### ANEU, ADIFF, CBC #### [address] [address] Monocytes/100 WBC (Bld) 8.3 % Normal 1.7-13.0 [facility] ([place]) Comment on above: Performed By: #### C EA, GFR, CMP, LIPID, TSH #### [place] [address] #### ANEU, ADIFF, CBC #### [address] [address] Neutrophils/100 WBC (Bld) 73.0 % Normal 37.0-80.0 [facility] ([place]) Comment on above: Performed By: #### C EA, GFR, CMP, LIPID, TSH #### [place] [address] #### ANEU, ADIFF, CBC #### [address] [address] .GFRon 01-17-2019 GFR 126 ml/min/1.73sqm Normal [facility] ([place]) Comment on above: Result Comment: GFR Population mean for , Non- Americans Ages 20-29 = 116 mL/min/1.73 sq.m. Ages 30-39 = 107 mL/min/1.73 sq.m. Ages 40-49 = 99 mL/min/1.73 sq.m. Ages 50-59 = 93 mL/min/1.73 sq.m. Ages 60-69 = 85 mL/min/1.73 sq.m. Ages 70+ = 75 mL/min/1.73 sq.m. Chronic Kidney Disease: Less than 60 mL/min/1.73 square meters End Stage Renal Disease: Less than 15 mL/min/1.73 square meters Performed By: #### C EA, GFR, CMP, LIPID, TSH #### [place] [address] #### ANEU, ADIFF, CBC #### [address] [address] GFR Non- 104 ml/min/1.73sqm Normal [facility] ([place]) Comment on above: Result Comment: GFR Population mean for , Non- Americans Ages 20-29 = 116 mL/min/1.73 sq.m. Ages 30-39 = 107 mL/min/1.73 sq.m. Ages 40-49 = 99 mL/min/1.73 sq.m. Ages 50-59 = 93 mL/min/1.73 sq.m. Ages 60-69 = 85 mL/min/1.73 sq.m. Ages 70+ = 75 mL/min/1.73 sq.m. Chronic Kidney Disease: Less than 60 mL/min/1.73 square meters End Stage Renal Disease: Less than 15 mL/min/1.73 square meters Performed By: #### C EA, GFR, CMP, LIPID, TSH #### [place] [address] #### BRIE, ADIFF, CBC #### [address] [address] .NEUABSon 01-17-2019 Neutrophils (Bld) [#/Vol] 3.10 10 3/mcL Normal 2.85-6.16 [facility] ([place]) Comment on above: Performed By: #### C EA, GFR, CMP, LIPID, TSH #### [place] [address] #### ANEU, ADIFF, CBC #### [address] [address] PSYCHIATRICon 01-17-2019 Erythrocyte distribution width (RBC) [Ratio] 17.8 % High 11.5-14.5 [facility] ([place]) Comment on above: Performed By: #### C EA, GFR, CMP, LIPID, TSH #### [place] [address] #### ANEU, ADIFF, CBC #### [address] [address] Hematocrit (Bld) [Volume fraction] 34.8 % Low 37.0-47.0 [facility] ([place]) Comment on above: Performed By: #### C EA, GFR, CMP, LIPID, TSH #### [place] [address] #### ANEU, ADIFF, CBC #### [address] [address] Hemoglobin (Bld) [Mass/Vol] 11.5 G/dL Low 12.0-16.0 [facility] ([place]) Comment on above: Performed By: #### C EA, GFR, CMP, LIPID, TSH #### [place] [address] #### ANEU, ADIFF, CBC #### [address] [address] MCH (RBC) [Entitic mass] 26.4 pg Low 27.0-31.2 [facility] ([place]) Comment on above: Performed By: #### C EA, GFR, CMP, LIPID, TSH #### [place] [address] #### ANEU, ADIFF, CBC #### [address] [address] MCHC (RBC) [Mass/Vol] 33.1 G/dL Normal 33.0-37.0 [facility] ([place]) Comment on above: Performed By: #### C EA, GFR, CMP, LIPID, TSH #### [place] [address] #### ANEU, ADIFF, CBC #### [address] [address] MCV (RBC) [Entitic vol] 79.8 fL Low 80.0-94.0 [facility] ([place]) Comment on above: Performed By: #### C EA, GFR, CMP, LIPID, TSH #### [place] [address] #### ANEU, ADIFF, CBC #### [address] [address] Platelet mean volume (Bld) [Entitic vol] 8.7 fL Normal 7.4-10.4 [facility] ([place]) Comment on above: Performed By: #### C EA, GFR, CMP, LIPID, TSH #### [place] [address] #### ANEU, ADIFF, CBC #### [address] [address] Platelets (Bld) [#/Vol] 186 10 3/mcL Normal 130-400 [facility] ([place]) Comment on above: Performed By: #### C EA, GFR, CMP, LIPID, TSH #### [place] [address] #### ANEU, ADIFF, CBC #### [address] [address] RBC (Bld) [#/Vol] 4.36 10 6/mcL Normal 4.20-5.40 [facility] ([place]) Comment on above: Performed By: #### C EA, GFR, CMP, LIPID, TSH #### [place] [address] #### ANEU, ADIFF, CBC #### [address] [address] WBC (Bld) [#/Vol] 4.20 10 3/mcL Low 4.60-10.80 [facility] ([place]) Comment on above: Performed By: #### C EA, GFR, CMP, LIPID, TSH #### [place] [address] #### ANEU, ADIFF, CBC #### [address] [address] CEAon 01-17-2019 CEA 66.7 ng/mL High 0.0-3.0 [facility] ([place]) Comment on above: Result Comment: CEA Reference Range for SMOKERS: 0.0 - 5.0 ng/mL. Performed By: #### C EA, GFR, CMP, LIPID, TSH #### [place] [address] #### ANEU, ADIFF, CBC #### [address] [address] CMPon 01-17-2019 Albumin [Mass/Vol] 3.9 G/dL Normal 3.5-5.0 [facility] ([place]) Comment on above: Performed By: #### C EA, GFR, CMP, LIPID, TSH #### [place] [address] #### ANEU, ADIFF, CBC #### [address] [address] Albumin/Globulin [Mass ratio] 1.3 {ratio} Normal 1.1-2.5 [facility] ([place]) Comment on above: Performed By: #### C EA, GFR, CMP, LIPID, TSH #### [place] [address] #### ANEU, ADIFF, CBC #### [address] [address] ALP [Catalytic activity/Vol] 75 U/L Normal 40-135 [facility] ([place]) Comment on above: Performed By: #### C EA, GFR, CMP, LIPID, TSH #### [place] [address] #### ANEU, ADIFF, CBC #### [address] [address] ALT [Catalytic activity/Vol] 20 U/L Normal 10-35 [facility] ([place]) Comment on above: Performed By: #### C EA, GFR, CMP, LIPID, TSH #### [place] [address] #### ANEU, ADIFF, CBC #### [address] [address] AST [Catalytic activity/Vol] 16 U/L Normal 10-40 [facility] ([place]) Comment on above: Performed By: #### C EA, GFR, CMP, LIPID, TSH #### [place] [address] #### ANEU, ADIFF, CBC #### [address] [address] Bili Total 0.5 mg/dL Normal 0.2-1.0 [facility] ([place]) Comment on above: Performed By: #### C EA, GFR, CMP, LIPID, TSH #### [place] [address] #### ANEU, ADIFF, CBC #### [address] [address] Calcium [Mass/Vol] 9.3 mg/dL Normal 8.4-10.2 [facility] ([place]) Comment on above: Performed By: #### C EA, GFR, CMP, LIPID, TSH #### [place] [address] #### ANEU, ADIFF, CBC #### [address] [address] Chloride [Moles/Vol] 104 mmol/L Normal 98-107 [facility] ([place]) Comment on above: Performed By: #### C EA, GFR, CMP, LIPID, TSH #### [place] [address] #### ANEU, ADIFF, CBC #### [address] [address] CO2 [Moles/Vol] 33 mmol/L High 22-29 [facility] ([place]) Comment on above: Performed By: #### C EA, GFR, CMP, LIPID, TSH #### [place] [address] #### ANEU, ADIFF, CBC #### [address] [address] Creatinine [Mass/Vol] 0.60 mg/dL Normal 0.55-1.02 [facility] ([place]) Comment on above: Performed By: #### C EA, GFR, CMP, LIPID, TSH #### [address] [address] #### ANEU, ADIFF, CBC #### [address] [address] Electrolyte Balance 2.0 mEq/L Normal [facility] ([place]) Comment on above: Performed By: #### C EA, GFR, CMP, LIPID, TSH #### [place] [address] #### ANEU, ADIFF, CBC #### [address] [address] Globulin (S) [Mass/Vol] 3.1 G/dL Normal [facility] ([place]) Comment on above: Performed By: #### C EA, GFR, CMP, LIPID, TSH #### [place] [address] #### ANEU, ADIFF, CBC #### [address] [address] Glucose [Mass/Vol] 85 mg/dL Normal 70-105 [facility] ([place]) Comment on above: Performed By: #### C EA, GFR, CMP, LIPID, TSH #### [place] [address] #### ANEU, ADIFF, CBC #### [address] [address] Potassium [Moles/Vol] 4.8 mmol/L Normal 3.5-5.1 [facility] ([place]) Comment on above: Performed By: #### C EA, GFR, CMP, LIPID, TSH #### [place] [address] #### ANEU, ADIFF, CBC #### [address] [address] Protein [Mass/Vol] 7.0 G/dL Normal 6.4-8.2 [facility] ([place]) Comment on above: Performed By: #### C EA, GFR, CMP, LIPID, TSH #### [address] [address] #### ANEU, ADIFF, CBC #### [address] [address] Sodium [Moles/Vol] 139 mmol/L Normal 136-145 [facility] ([place]) Comment on above: Performed By: #### C EA, GFR, CMP, LIPID, TSH #### [place] [address] #### ANEU, ADIFF, CBC #### [address] [address] Urea nitrogen [Mass/Vol] 13 mg/dL Normal 7-18 [facility] ([place]) Comment on above: Performed By: #### C EA, GFR, CMP, LIPID, TSH #### [place] [address] #### ANEU, ADIFF, CBC #### [address] [address] Urea nitrogen/Creatinine [Mass ratio] 22 ratio Normal 7-27 [facility] ([place]) Comment on above: Performed By: #### C EA, GFR, CMP, LIPID, TSH #### [place] [address] #### ANEU, ADIFF, CBC #### [address] [address] LIPIDon 01-17-2019 Cholesterol [Mass/Vol] 146 mg/dL Normal 0-200 [facility] ([place]) Comment on above: Result Comment: Chol esterol Reference Interval: Less than 200 Desirable 200-239 Borderline high risk 240 and above High risk Performed By: #### C EA, GFR, CMP, LIPID, TSH #### [place] [address] #### ANEU, ADIFF, CBC #### [address] [address] Cholesterol in HDL [Mass/Vol] 45 mg/dL Normal 40-60 [facility] ([place]) Comment on above: Performed By: #### C EA, GFR, CMP, LIPID, TSH #### [place] [address] #### ANEU, ADIFF, CBC #### [address] [address] Cholesterol in LDL [Mass/Vol] 91 mg/dL Normal 0-130 [facility] ([place]) Comment on above: Performed By: #### C EA, GFR, CMP, LIPID, TSH #### [place] [address] #### ANEU, ADIFF, CBC #### [address] [address] Triglyceride [Mass/Vol] 52 mg/dL Normal 0-150 [facility] ([place]) Comment on above: Result Comment: Trig lyceride Reference Interval: Less than 150 Normal 150-199 Borderline high risk 200-499 High risk 500 or higher Very high risk Performed By: #### C EA, GFR, CMP, LIPID, TSH #### [place] [address] #### ANEU, ADIFF, CBC #### [address] [address] TSHon 01-17-2019 TSH Qn 3.71 mcIU/mL Normal 0.36-3.74 [facility] ([place]) Comment on above: Performed By: #### C EA, GFR, CMP, LIPID, TSH #### [place] [address] #### ANEU, ADIFF, CBC #### [address] [address] Bronchoalveolar lavage cultu re with Gram stain Respiratory Culture Staphylococcus aureus [facility] Work Phone: Respiratory Culture Presumptive C albicans [facility] Work Phone: Gram stain for investigation of transfusion reaction Microscopic observation Gram stain Nom (Unsp spec) [facility] Work Phone: Laboratory - Microbiology an d Antimicrobial susceptibility Bacteria identified Cx Nom (Bld) No growth in 5 days. [facility] Work Phone: Vital Signs Date Time Vital Sign Value Performing Clinician Faci lity 12-16-2022 14:03-0400 Body height 167.[address] Reynaldo Caldera Work Phone: [facility] 12-16-2022 14:03-0400 Body weight 84.[address] Reynaldo Caldera Work Phone: [facility] 06-14-2022 15:54-0400 Body height 167.[address] Reynaldo Caldera Work Phone: [facility] 06-14-2022 15:54-0400 Body mass index (BMI) [Ratio] 25.9 kg/m2 Dr. Reynaldo Caldera Work Phone: [facility] 06-14-2022 15:54-0400 Body weight 73.[address] Reynaldo Caldera Work Phone: [facility] 06-14-2022 15:15-0400 Body mass index (BMI) [Ratio] 29.5 kg/m2 Dr. Reynaldo Caldera Work Phone: [facility] 06-14-2022 15:15-0400 Body temperature 98.2 [degF] Dr. Reynaldo Caldera Work Phone: [facility] 06-14-2022 15:15-0400 Body weight 83.[address] Reynaldo Caldera Work Phone: [facility] 06-14-2022 15:15-0400 Diastolic blood pressure 75 mm[Hg] Dr. Reynaldo Caldera Work Phone: [facility] 06-14-2022 15:15-0400 Heart rate 80 /min Dr. Reynaldo Caldera Work Phone: [facility] 06-14-2022 15:15-0400 Respiratory rate 17 /min Dr. Reynaldo Caldera Work Phone: [facility] 06-14-2022 15:15-0400 SaO2% (BldA) [Mass fraction] 94 % Dr. Reynaldo Caldera Work Phone: [facility] 06-14-2022 15:15-0400 Systolic blood pressure 147 mm[Hg] Dr. Reynaldo Caldera Work Phone: [facility] 10-22-2021 08:42-0400 Body height 167.[address] Reynaldo Caldera Work Phone: [facility] Work Phone: 10-22-2021 08:42-0400 Body mass index (BMI) [Ratio] 28.8 kg/m2 Dr. Reynaldo Caldera Work Phone: [facility] Work Phone: 10-22-2021 08:42-0400 Body temperature 97.5 [degF] Dr. Reynaldo Caldera Work Phone: [facility] Work Phone: 10-22-2021 08:42-0400 Body weight 80.[address] Reynaldo Caldera Work Phone: [facility] Work Phone: 10-22-2021 08:42-0400 Diastolic blood pressure 79 mm[Hg] Dr. Reynaldo Caldera Work Phone: [facility] Work Phone: 10-22-2021 08:42-0400 Heart rate 92 /min Dr. Reynaldo Caldera Work Phone: [facility] Work Phone: 10-22-2021 08:42-0400 Respiratory rate 16 /min Dr. Reynaldo Caldera Work Phone: [facility] Work Phone: 10-22-2021 08:42-0400 SaO2% (BldA) [Mass fraction] 96 % Dr. Reynaldo Caldera Work Phone: [facility] Work Phone: 10-22-2021 08:42-0400 Systolic blood pressure 144 mm[Hg] Dr. Reynaldo Caldera Work Phone: [facility] Work Phone: 06-10-2021 14:54-0400 Body mass index (BMI) [Ratio] 25.9 kg/m2 Dr. Reynaldo Caldera Work Phone: [facility] Work Phone: 06-10-2021 14:54-0400 Diastolic blood pressure 68 mm[Hg] Dr. Reynaldo Caldera Work Phone: [facility] 06-10-2021 14:54-0400 Heart rate 79 /min Dr. Reynaldo Caldera Work Phone: [facility] 06-10-2021 14:54-0400 Respiratory rate 16 /min Dr. Reynaldo Caldera Work Phone: [facility] 06-10-2021 14:54-0400 SaO2% (BldA) [Mass fraction] 98 % Dr. Reynaldo Caldera Work Phone: [facility] 06-10-2021 14:54-0400 Systolic blood pressure 121 mm[Hg] Dr. Reynaldo Caldera Work Phone: [facility] 06-03-2020 15:04-0400 Body temperature 98.2 [degF] Dr. Reynaldo Caldera Work Phone: [facility] 06-03-2020 15:04-0400 Body weight 73.[address] Reynaldo Caldera Work Phone: [facility] Work Phone: 11-05-2019 08:40-0400 Inhaled oxygen flow rate 100 L/min Dr. Reynaldo Caldera Work Phone: [facility] Encounters Encounter Date Encounter Type Care Provider Facility Start: 12-20-2024 [facility] Facility:[facility] Start: 07-05-2024 End: 07-05-2024 ambulatory [facility] Facility:[facility] Start: 06-14-2023 ambulatory LEILA RODRIGUEZ Facility :[facility] Start: 06-06-[address] Edi Caldera Work Phone: [facility] Start: 06-03-2023 End: 06-03-[address] Reynaldo Caldera Work Phone: [facility] Work Phone: Start: 06-03-2023 End: 06-03-[address] Reynaldo Caldera Work Phone: [facility] Work Phone: Start: 05-16-2023 Non-patient / Non-visit Dr. Elisa Caldera Work Phone: [facility] Start: 05-16-2023 End: 05-16-[address] Reynaldo Caldera Work Phone: [facility] Work Phone: Start: 05-16-2023 End: 05-16-[address] Reynaldo Caldera Work Phone: [facility]-Cardiovascular Services Work Phone: Start: 04-21-[address] Edi Caldera Work Phone: [facility] Start: 11-29-2022 End: 11-29-2022 ambulatory [facility] Work Phone: Start: 11-29-2022 End: 11-29-2022 Patient encounter procedure [facility] Work Phone: Start: 11-15-2022 Registered Recurring [facility] Start: 06-21-2022 End: 06-21-[address] Reynaldo Caldera Work Phone: [facility] Work Phone: Start: 06-21-2022 End: 06-21-[address] Reynaldo Caldera Work Phone: [facility]-Outpatient Breast Imaging Start: 06-14-[address] Edi Caldera Work Phone: [facility] Start: 06-14-2022 End: 06-14-[address] Reynaldo Caldera Work Phone: [facility] Start: 11-30-2021 End: 11-30-[address] Reynaldo Caldera Work Phone: [facility] Work Phone: Start: 11-30-2021 End: 11-30-[address] Reynaldo Caldera Work Phone: [facility]-Cat Scan, [facility] Start: 11-18-[address] Edi Caldera Work Phone: [facility] Start: 10-22-2021 End: 10-22-[address] Reynaldo Caldera Work Phone: [facility]-Pulmonary Medicine [facility] Procedures Date Procedure Procedure Detail Performing Clinician Start: 06-03-2023 Computed tomography of abdomen and pelvis with intravenous contrast Dr. Reynaldo Caldera Work Phone: Start: 11-29-2022 Computed tomography of abdomen and pelvis with intravenous contrast Start: 06-21-2022 Screening mammography Corina Caldera Work Phone: Start: 12-22-2021 Measurement of occul t blood in stool specimen using immunoassay Dr. Reynaldo Caldera Work Phone: Start: 11-30-2021 CT of abdomen and pe lvis without contrast Dr. Reynaldo Caldera Work Phone: Start: 12-25-2019 Investigation of transfusion reaction Dr. Reynaldo Caldera Work Phone: Start: 12-25-2019 Respiratory microbia l culture Start: 12-24-2019 Bacteria identified in Blood by Culture Start: 05-21-2019 PET/CT Tumor Base -T high Init Dr. Reynaldo Caldera Work Phone: Bacteria identified in Blood by Culture Dr. Reynaldo Caldera Work Phone: Bacteria identified in Blood by Culture Dr. Reynaldo Caldera Work Phone: H/O: section History of delivery Dr. Reynaldo Caldera Work Phone: Investigation of transfusion reaction Dr. Reynaldo Caldera Work Phone: Respiratory microbia l culture Dr. Reynaldo Caldera Work Phone: Respiratory microbia l culture Dr. Reynaldo Caldera Work Phone: Plan of Treatment Date Care Activity Detail Author Start: 06-03-2023 Venous catheter care management [facility] Start: 11-29-2022 Venous catheter care management [facility] Start: 10-08-2021 Venous catheter care management [facility] Start: 05-28-2021 Venous catheter care management [facility] Start: 07-14-2020 Venous catheter care management [facility] Start: 06-03-2020 Venous catheter care management [facility] Start: 12-03-2019 Following clinical p athway protocol [facility] Start: 10-15-2019 [facility] Start: 10-02-2019 Disease process or c ondition education [facility] Start: 10-02-2019 Medication administr ation assessment [facility] Start: 10-02-2019 Medication monitoring [facility] Start: 10-02-2019 Precautionary procedure [facility] Start: 10-02-2019 Vital signs measurements [facility] Start: 10-02-2019 [facility] Start: 10-01-2019 [facility] Start: 09-11-2019 Disease process or c ondition education [facility] Start: 09-11-2019 Medication administr ation assessment [facility] Start: 09-11-2019 Medication monitoring [facility] Start: 09-11-2019 Precautionary procedure [facility] Start: 09-11-2019 Vital signs measurements [facility] Start: 09-11-2019 [facility] Start: 08-28-2019 Disease process or c ondition education [facility] Start: 08-28-2019 Medication administr ation assessment [facility] Start: 08-28-2019 Medication monitoring [facility] Start: 08-28-2019 Precautionary procedure [facility] Start: 08-28-2019 Vital signs measurements [facility] Start: 08-28-2019 [facility] Start: 08-14-2019 Disease process or c ondition education [facility] Start: 08-14-2019 Medication administr ation assessment [facility] Start: 08-14-2019 Medication monitoring [facility] Start: 08-14-2019 Precautionary procedure [facility] Start: 08-14-2019 Vital signs measurements [facility] Start: 08-14-2019 [facility] Start: 07-31-2019 Disease process or c ondition education [facility] Start: 07-31-2019 Medication administr ation assessment [facility] Start: 07-31-2019 Medication monitoring [facility] Start: 07-31-2019 Precautionary procedure [facility] Start: 07-31-2019 Vital signs measurements [facility] Start: 07-31-2019 [facility] Start: 07-26-2019 Following clinical p athway protocol [facility] Start: 07-10-2019 Disease process or c ondition education [facility] Start: 07-10-2019 Medication administr ation assessment [facility] Start: 07-10-2019 Medication monitoring [facility] Start: 07-10-2019 Precautionary procedure [facility] Start: 07-10-2019 Vital signs measurements [facility] Start: 07-10-2019 [facility] Start: 06-26-2019 Disease process or c ondition education [facility] Start: 06-26-2019 Medication administr ation assessment [facility] Start: 06-26-2019 Medication monitoring [facility] Start: 06-26-2019 Precautionary procedure [facility] Start: 06-26-2019 Vital signs measurements [facility] Start: 06-26-2019 [facility] Start: 06-14-2019 Following clinical p athway protocol [facility] Start: 06-12-2019 Disease process or c ondition education [facility] Start: 06-12-2019 Medication administr ation assessment [facility] Start: 06-12-2019 Medication monitoring [facility] Start: 06-12-2019 Precautionary procedure [facility] Start: 06-12-2019 Vital signs measurements [facility] Start: 06-12-2019 [facility] [place] [place] Immunizations Immunization Date Immunization Notes Care Provider Fa cility 12-12-2019 influenza, injectabl e, quadrivalent, preservative free [facility] 12-12-2019 influenza, seasonal, injectable Dr. Reynaldo Caldera Work Phone: [facility] Payers Date Payer Category Payer Self-pay [id number] 2019 Unknown [id number] 1965 [id number] Unknown [id number] Unknown [id number] Unknown [id number] Social History Date Type Detail Facility Start: 10-22-2021 End: 12-16-2022 Tobacco smoking status NHIS Unknown if ever smoked [facility] Start: 08-19-2019 With Family [facility] Start: 06-03-2020 Non-smoker [facility] Start: 1965 Sex Assigned At Female [facility] Medical Equipment Procedure Code Equipment Code Equipment Origin al Text Equipment Identifier Dates Insertion, vascular access port PORT,POWER 8FR FDA Start: 06-11-2019 Insertion, vascular access port PORT,POWER 8FR FDA Start: 06-11-2019 Insertion, vascular access port PORT,POWER 8FR FDA Start: 06-11-2019 Insertion, vascular access port PORT,POWER 8FR FDA Start: 06-11-2019 Insertion, vascular access port PORT,POWER 8FR FDA Start: 06-11-2019 Mental Status Date Assessment Result Facility 06-14-2022 Cognitive function Voice/Name [facility] Work Phone: 06-10-2021 Cognitive function Level Of Cons ciousness Awake;Alert;Appropriate;Follow s Commands [facility] Work Phone: 03-31-2020 Cognitive function Patient Christopher britton Person;Place;Time [facility] Work Phone: 03-04-2020 Cognitive function Arousable To Voice/Nam e [facility] Work Phone: 06-12-2019 Cognitive function Mood Descript ion Appropriate;Calm;Relaxed [facility] Work Phone: Hospital Discharge instructions 06-08-2019 Note Date & Type Note Facility 06-08-2019 Hospital Discharg e instructions Ambulatory OrdersONC Referral: Surgery Time Frame: 06/08/19, Location: None SelectedONC Referral: Surgery Time Frame: 0 Days, Location: None SelectedONC Referral: Surgery Location: None Selected [facility] Work Phone: Evaluation note Note Date & Type Note Facility Evaluation note Diagnosis Onset Date Sarcoidosis of lung acute Anemia acute Chemotherapy management, encounter for acute Cough acute Encounter for education acut e Fever acute Iron deficiency anemia chron ic Lymphadenopathy, generalized acute Neutropenia due to and not c oncurrent with chemotherapy acute Sarcoidosis of lung acute Seasonal allergies acute Thrombocytopenia due to drugs acute 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 Iron deficiency chronic 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 Diarrhea resolved Diarrhea due to drug resolve d [facility] Work Phone: Evaluation note Note Date & Type Note Facility Evaluation note Diagnosis Onset Date Anemia acute Osteoporosis acute 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 Anemia acute Chemotherapy management, encounter for acute Cough acute Encounter for education acut e Fever acute Iron deficiency anemia chron ic Lymphadenopathy, generalized acute Neutropenia due to and not c oncurrent with chemotherapy acute Sarcoidosis of lung acute Seasonal allergies acute Thrombocytopenia due to drugs acute 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 Iron deficiency chronic 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 Diarrhea resolved Diarrhea due to drug resolve d [facility] Work Phone: Evaluation note Note Date & Type Note Facility Evaluation note Diagnosis Onset Date Anemia acute Chemotherapy management, encounter for acute Cough acute Encounter for education acut e Fever acute Iron deficiency anemia chron ic Lymphadenopathy, generalized acute Neutropenia due to and not c oncurrent with chemotherapy acute Sarcoidosis of lung acute Seasonal allergies acute Thrombocytopenia due to drugs acute 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 Iron deficiency chronic 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 Diarrhea resolved Diarrhea due to drug resolve d [facility] Work Phone: Summary Purpose Family History No Family History Records Found Relationship Condition Age at Onset Recorded Date/T ella Not Specified History of herpes zoster Unknown mother Chronic obstructive pulmonary disease Unk nown father Malignant neoplasm of skin Unknown Pulmonary emphysema Unknown Malignant neoplasm of lung Unknown sister Heart disease Unknown Sepsis Unknown Advance Directives No Advanced Directives Records Found Advance Directive Response Recorded Date/ Time Advance Directives on File No 2019 10:49am Advance Directives No November 10:49am Living Will Yes December 23 0 3:36pm Power of Medical Assistant Prn Yes December 23 020 3:36pm Advance Directive Response Recorded Date/ Time Advance Directives on File No 2019 9:49am Advance Directives No November 9:49am Living Will Yes December 23 0 2:36pm Power of Medical Assistant Prn Yes December 23 020 2:36pm Chief Complaint and Reason for Visit Chief Complaint 1 Y FU ONC/HEM RECTAL CANCER Reason for Visit Sarcoidosis of lung Anemia Chemotherapy management, encounter for Cough Encounter for education Fever Iron deficiency anemia Lymphadenopathy, generalized Neutropenia due to and not concurrent with chemotherapy Sarcoidosis of lung Seasonal allergies Thrombocytopenia due to drugs Anemia due to chemotherapy Iron deficiency Rectosigmoid cancer Sarcoidosis of lymph nodes Diarrhea Diarrhea due to drug Chief Complaint 6MO LABS PROLIA ONC/HEM SCREENING Reason for Visit Anemia Osteoporosis Rectosigmoid cancer Anemia Chemotherapy management, encounter for Cough Encounter for education Fever Iron deficiency anemia Lymphadenopathy, generalized Neutropenia due to and not concurrent with chemotherapy Sarcoidosis of lung Seasonal allergies Thrombocytopenia due to drugs Anemia due to chemotherapy Iron deficiency Rectosigmoid cancer Sarcoidosis of lymph nodes Diarrhea Diarrhea due to drug Chief Complaint ONC/HEM Malignant neoplasm of rectosigmoid junction Reason for Visit Anemia Chemotherapy management, encounter for Cough Encounter for education Fever Iron deficiency anemia Lymphadenopathy, generalized Neutropenia due to and not concurrent with chemotherapy Sarcoidosis of lung Seasonal allergies Thrombocytopenia due to drugs Anemia due to chemotherapy Iron deficiency Rectosigmoid cancer Sarcoidosis of lymph nodes Diarrhea Diarrhea due to drug Chief Complaint ONC/HEM VISUAL DISTURBANCES Reason for Visit Anemia Chemotherapy management, encounter for Cough Encounter for education Fever Iron deficiency anemia Lymphadenopathy, generalized Neutropenia due to and not concurrent with chemotherapy Sarcoidosis of lung Seasonal allergies Thrombocytopenia due to drugs Anemia due to chemotherapy Iron deficiency Rectosigmoid cancer Sarcoidosis of lymph nodes Diarrhea Diarrhea due to drug Chief Complaint VISUAL DISTURBANCES MALIGNANT NEOPLASM OF RECTOSIGMOID JUNCTION ONC/HEM Reason for Visit Anemia Chemotherapy management, encounter for Cough Encounter for education Fever Iron deficiency anemia Lymphadenopathy, generalized Neutropenia due to and not concurrent with chemotherapy Sarcoidosis of lung Seasonal allergies Thrombocytopenia due to drugs Anemia due to chemotherapy Iron deficiency Rectosigmoid cancer Sarcoidosis of lymph nodes Diarrhea Diarrhea due to drug Additional Source Comments INFORMATION SOURCE (unrecogn ized section and content) DATE CREATED AUTHOR 01/26/2019 [facility] ([place]) DATE CREATED AUTHOR AUTHOR'S ORGANIZ ATION 10/23/2019 [facility] [place] DATE CREATED AUTHOR AUTHOR'S ORGANIZ ATION 06/23/2023 [facility] DATE CREATED AUTHOR AUTHOR'S ORGANIZ ATION 01/26/2025 [facility] Goals (unrecognized section and content) Goals may be documented in a n alternate sectionGoals may be documented in an alternate sectionGoals may be documented in an alternate sectionGoals may be documented in an alternate sectionGoals may be documented in an alternate section Care Teams (unrecognized sec tion and content) Team Status: Active Member Role Status Dates Dr. Reynaldo Caldera MD Family Provider Active Dr. Reynaldo Caldera MD Primary Care Provider Active Team Status: Inactive Member Role Status Dates Dr. Reynaldo Caldera MD Primary Care Provider, Referri ng Provider Active Dr. Rudy Avila MD Attending Provider Active Team Status: Active Member Role Status Dates Dr. Reynaldo Caldera MD Primary Care Provider Active Dr. Rudy Avila MD Attending Provider Active Dr. Jean-Paul Murguia MD Referring Provider Active Dr. Efe Bowman DO Active Team Status: Inactive Member Role Status Dates Dr. Reynaldo Caldera MD Primary Care Provider Active Dr. Rudy Avila MD Attending Provider Active Team Status: Active Member Role Status Dates Dr. Reynaldo Caldera MD Primary Care Provider Active Dr. Rudy Avila MD Attending Provider Active Dr. Jean-Paul Murguia MD Referring Provider Active Team Status: Inactive Member Role Status Dates Dr. Reynaldo Caldera MD Primary Care Provider Active Dr. Rudy Avila MD Attending Provider, Referring Pro vider Active Team Status: Active Member Role Status Dates Dr. Reynaldo Caldera MD Primary Care Provider Active Dr. Bob Velazquez MD Attending Provider Active Team Status: Inactive Member Role Status Dates Dr. Reynaldo Caldera MD Primary Care Provider Active Dr. Russell Blount MD Attending Provider, Referring P rovider Active Team Status: Active Member Role Status Dates Dr. Reynaldo Caldera MD Primary Care Provider Active Dr. Bob Velazquez MD Attending Provider Active Dr. Russell Blount MD Referring Provider Active FOR RECORDS PERTAINING TO PATIENTS WHO ARE [...] BE BASED ON THE PRIMARY CLINICAL RECORDS. [employer] provides no warranty or guarantee of the accuracy or completeness of information in this document.
== END | disposition home or self-care (01) ==
LOC: US 09:21
PROVIDERS: Referring Provider Internal Medicine Gastroenterology; Visit Provider Internal Medicine Gastroenterology
DX: K76.0 Fatty (change of) liver, not elsewhere classified (principal)
CPT/HCPCS: 76705; 76981

== ENCOUNTER → 2025-03-08 | Outpatient (CLI) | payer OTHER, SELFPAY ==
[2019-05-17 14:05] VITALS: BMI 27.5
--- NOTE | 2025-03-08 14:23 | CT_ITS ---
PROCEDURE: ABDOMEN WITH IV CONTRAST 03/08/2025 REASON FOR EXAM: FATTY LIVER TECHNIQUE: Procedure Code: CTABDW Modality: CT Procedure: ABDOMEN WITH IV CONTRAST Multiplanar Sagittal and Coronal images were obtained. One or more dose reduction techniques were used (e.g., Automated exposure control, adjustment of the mA and/or kV according to patient size, use of iterative reconstruction technique. CONTRAST: Isovue-300 VOLUME: 100 mL RADIATION DOSE SUMMARY: CTDlvol: 18.85 mGy DLP: 678.95 mGycm COMPARISON: MRI dated 10/27/2023. CT abdomen dated 08/29/2023. FINDINGS: Lung bases: No abnormalities. Liver: Hepatomegaly. Diminished attenuation of the parenchyma. Ill-defined scattered hypodensities throughout the liver. No masses. No biliary ductal dilatation. Gallbladder: Gallstone. No wall thickening or pericholecystic edema. Spleen: [id number] splenomegaly. A small splenule. Pancreas: No masses or ductal dilatation. Adrenals: No nodules are gland thickening. Kidneys: Symmetrical excretion of contrast. No masses. No calcifications. Normal-size. Bladder: Unremarkable. Bowel: No evidence of obstruction. No bowel lesions. Postoperative changes, right hemicolon. Appendix: Unremarkable. Lymph nodes: No suspicious lymphadenopathy. Vasculature: Unremarkable. Mild atherosclerotic calcifications of the aorta. Peritoneum / Retroperitoneum: No masses, free air, or free fluid. Anterior abdominal wall: Unremarkable. Bones: Multilevel spondylosis. Mild compression of the superior endplate of L5. CT/Abdomen WITH IV Contrast IMPRESSION: 1. Stable hepatosplenomegaly. 2. Multiple ill-defined hypodense hepatic lesions. 3. Steatosis. 4. Cholelithiasis. 5. Other nonacute findings noted above. Reading Location: [place] [id number]
== END | disposition home or self-care (01) ==
LOC: CT 14:20
PROVIDERS: Referring Provider Internal Medicine Gastroenterology; Visit Provider Internal Medicine Gastroenterology
DX: K76.0 Fatty (change of) liver, not elsewhere classified (principal)
CPT/HCPCS: 74160; Q9967; A4216